=== PATIENT | female | born 1970 | race Caucasian/White ===

== ENCOUNTER 2022-11-09 14:34 | Outpatient (REF) | payer BC, SELFPAY ==
--- NOTE | ~2022-11-09 | US_ITS ---
EXAMINATION: US RETROPERITONEAL LIMITED (RENAL ONLY) CLINICAL INFORMATION: Chronic kidney disease, stage 3. COMPARISON: None available. TECHNIQUE: Real-time imaging of the kidneys. FINDINGS: RIGHT KIDNEY: 11.2 x 4.2 x 4.3 cm (SAG x AP x TRV). The kidney is normal in size, contour, and echogenicity. Renal cortical thickness is normal. No calculi or focal parenchymal lesions. No hydronephrosis. LEFT KIDNEY: 10.4 x 4.5 x 6.1 cm (SAG x AP x TRV). The kidney is normal in size, contour, and echogenicity. Renal cortical thickness is normal. No renal calculi or hydronephrosis. Small 7 x 5 x 4 mm cyst in the midpole. No imaging follow-up recommended. US/US renal BI IMPRESSION: Unremarkable exam.
== END 2022-11-09 14:35 | disposition home or self-care (01) ==
LOC: HO.US 14:34
PROVIDERS: PCP Internal Medicine; Visit Provider Internal Medicine Nephrology
DX: N18.31 Chronic kidney disease, stage 3a (principal)
CPT/HCPCS: 76775

== ENCOUNTER 2022-11-12 15:23 | Outpatient (REF) | payer BC, SELFPAY ==
[2022-11-12 15:38] LABS: Total Volume 24 Hour Urine 1400 mL
[2022-11-12 15:46] LABS: Appearance Urine Clear; Color Urine Yellow; Glucose Urine UA Negative (Negative); Leukocyte Esterase Urine Small (1+) (Negative); Nitrite Urine Negative (Negative); Specific Gravity - Urine <= 1.005 (1.005-1.025); UMIC TRIGGER UA YES; Urine Blood Small (1+) (Negative); Urine Ketones Negative (Negative); Urine Protein Negative (Neg-Trace)
[2022-11-12 16:21] LABS: Bacteria Urine None Seen (None Seen); Hyaline Casts Urine 0-2 /LPF (0-2); RBC Urine 0-2 /HPF (0-2)
[2022-11-12 18:32] LABS: Creatinine, 24Hr Urine 1.4 G/Day (1.0-2.0); Creatinine, mg/dL 96.92
[2022-11-12 18:42] LABS: Microalbumin Urine < 5.0 mg/L; Total Protein Urine Random < 7 mg/dL (<12)
== END 2022-11-12 15:24 | disposition home or self-care (01) ==
LOC: HO.LNP 15:23
PROVIDERS: Visit Provider Internal Medicine Nephrology
DX: N18.31 Chronic kidney disease, stage 3a (principal)
CPT/HCPCS: 81001; 82043; 82570; 84156

== ENCOUNTER 2022-12-25 15:10 | Outpatient (REF) | payer BC, SELFPAY ==
[2022-12-25 17:04] LABS: Anion Gap 15 (12-20); Blood Urea Nitrogen 15 mg/dL (9-16); Calcium 8.8 mg/dL (8.4-10.2); Carbon Dioxide 24 mmol/L (22-29); Chloride 108 mmol/L (96-108); Estimated Glomerular Filt Rate > 60; Sodium 143 mmol/L (135-145)
== END 2022-12-25 15:11 | disposition home or self-care (01) ==
LOC: HO.LAB 15:10
PROVIDERS: PCP Internal Medicine; Visit Provider Internal Medicine Nephrology
DX: N18.2 Chronic kidney disease, stage 2 (mild) (principal)
CPT/HCPCS: 36415; 80051; 82310; 82565; 84520

== ENCOUNTER 2023-07-24 18:38 | Emergency (ER) | payer BC, SELFPAY ==
[2023-07-24] VITALS (7 sets, daily range): BP systolic 145–178; BP diastolic 89–105; PULSE 82–107; RESP 14–23; TEMP 36.5–37; O2SAT 99–100; BMI 22.8
--- NOTE | ~2023-07-24 | CT_ITS ---
EXAMINATION: CT HEAD WITHOUT CONTRAST CLINICAL INFORMATION: Severe headache COMPARISON: None available. TECHNIQUE: Contiguous axial imaging was performed from the skull base to vertex without intravenous administration of contrast. This CT examination was performed using dose optimization techniques as appropriate, variously including the following: *Automated exposure control *Adjustment of mA and/or kV according to patient size (this includes techniques or standardized protocols for targeted exams where dose is matched to indication/reason for exam; i.e. extremities or head) *Use of iterative reconstruction technique DLP: 646 mGy-cm FINDINGS: There is no evidence of acute intracranial hemorrhage or territorial infarction. No abnormal mass effect or midline shift is seen. Mack to white matter differentiation is well preserved. No extra-axial fluid collections are identified. The ventricles are normal in size. There is no abnormal attenuation within the brain parenchyma. The osseous structures and soft tissues are normal. The mastoid air cells and visualized portions of the paranasal sinuses are well aerated. CT/CT head/brain wo IV con IMPRESSION: No acute intracranial pathology.
--- NOTE | 2023-07-24 18:42 | ED_ITS ---
HPI - General Adult General Chief complaint: Dizziness Stated complaint: sob lightheaded diarrhea ?medication reaction Time Seen by Provider: 07/24/23 19:30 Source: patient and family Mode of arrival: ambulatory Limitations: no limitations History of Present Illness ED Provider: Dr. Erica Anthony HPI narrative: Patient comes to the emergency room complaining of feeling lightheaded, nausea no vomiting. Patient denies headache. Patient states that over the last 3-1/2 weeks, she has been taking increased dose of topiramate to help control migraine headaches. Patient states that although she does not have headache at this time, patient has headaches are not decreasing in frequency or intensity. However, patient states that the topiramate is making her feel sick a wound like to discontinue it. Patient states that she does not want to be on any preventive medications at this time, as she is afraid of all the side effects. Patient denies near-syncope. Patient states that she feels occasionally short of breath, no palpitations, No syncopal episodes. Denies calf pain. Related Data Previous Rx's ?Medication ?Instructions ?Recorded norethindrone (contraceptive) 0.35 0.35 mg PO DAILY 28 days #28 tabs 09/26/20 mg tablet Allergies Allergy/AdvReac Type Severity Reaction Status Date / Time No Known Allergies Allergy Verified 07/24/23 18:44 Review of Systems 2 Review of Systems: Constitutional : No Weight loss, No Fever, No Chills, No Night Sweats, complaining of fatigue and generalized malaise ENT/Mouth : No Hearing loss, No Ear Pain, No Nasal Congestion, No Sinus Pain, No Hoarseness, No sore throat, No Rhinorrhea, No Swallowing Difficulty Eyes: No Eye Pain, No Swelling, No Redness, No Foreign Body, No Discharge, No Vision Changes Cardiovascular : No Chest Pain, No SOB, No Dyspnea on Exertion, No Orthopnea, No Edema, No Palpitations Respiratory : No Cough, No Sputum, No Wheezing, No Smoke Exposure, No Dyspnea Gastrointestinal : Complaining of Nausea, No Vomiting, No Diarrhea, No Constipation, No abdominal Pain, No Hematochezia, No Melena Genitourinary : no irregular bleeding, No Dysuria, No Urinary Frequency, No Hematuria, No Urinary Incontinence, No Urgency, No Flank Pain, No Urinary Flow Changes, No Hesitancy Musculoskeletal : No joint pain, No Myalgias, No Joint Swelling Skin : No Skin Lesions, No rash Neuro : No Weakness, No Numbness, No Paresthesias, No Loss of Consciousness, No Dizziness, No Headache Psych : No Anxiety/Panic, No Depression, No SI/HI/AH/VH, No Social Issues, Heme/Lymph: No Bruising, No Bleeding,No Lymphadenopathy Endocrine : No Polyuria, No Polydipsia, No Temperature Intolerance [facility] Social History Social History Smoked in Last 30 Days: No Use of substances other than those prescribed or required for medical reasons: No Advance Directives: No Advance Directives Information Provided: No Physical Exam ED Vital Signs: Vital Signs - 24 hr 07/24/23 18:42 07/24/23 19:17 07/24/23 19:49 Temperature 98.6 F 97.7 F Pulse Rate 107 H 95 Respiratory Rate 16 18 Blood Pressure 178/104 H 159/94 H Pulse Oximetry 100 100 99 Oxygen Delivery Method Room Air Room Air 07/24/23 20:50 07/24/23 20:51 07/24/23 20:52 Temperature Pulse Rate 91 97 104 H Respiratory Rate 23 H 20 14 Blood Pressure 145/89 H 154/97 H 156/105 H Pulse Oximetry 99 100 100 Oxygen Delivery Method Room Air Room Air Room Air BMI result Body Mass Index 22.8 Const Other: Appearance: Alert. Oriented X3. No acute distress. Eyes: Pupils equal, round and reactive to light. ENT: Pharynx normal. Neck: Normal inspection. Neck supple. No lymph nodes noted. No crepitus CVS: Normal heart rate and rhythm. Pulses normal. Normal S1 and S2 Respiratory: No respiratory distress. Breath sounds normal. No Wheezing. No rales Abdomen: Soft and nontender. No rigidity. No distention. Skin: Skin warm and dry. Normal skin color. Normal skin turgor. Extremities: No lower extremity edema. No Lacerations. No Rash Neuro: Oriented X 3. No motor deficit. No sensory deficit. Moving all extremities. No slurred speech. CN 2 through 12 grossly intact , normal strength bilaterally, ambulatory unassisted Psych: calm, cooperative, normal affect Course Course Course Narrative: This is an RME done by COLLEEN Gonzales: Additional HPI, ROS, PE not included below will be deferred to primary provider. 53 year old female with no known pmh presents with headache, nausea, SOB, lightheaded and feels like shes going to pass out for about 2 hours. Denies syncopal episodes. Pt thinks she may be having a reaction to topirimate she is taking for her migraines which she started 4 weeks ago. Denies vomiting, chest pain. Appearance: Alert.? Oriented X3.? No acute cardiopulmonary distress distress.? Head: Normocephalic, atraumatic, no step-offs or deformities ENT: Pharynx normal.??External ears normal, TMs normal bilaterally and EAC's normal. No pain with manipulation of external ears bilaterally. No mastoid tenderness. Neck: Normal inspection.? Neck supple.? CVS: Pulses normal.? Respiratory: No respiratory distress.? Abdomen: Soft and nontender.? Skin: ? Normal skin color. Extremities: 5/5 strength to bilateral upper and lower extremities Back: No midline tenderness, no C-spine tenderness, full range of motion, No CVA tenderness bilaterally Neuro: Oriented X 3.? No motor deficit.? No sensory deficit. Medications Administered Discontinued Medications Generic Name Dose Route Start Last Admin Trade Name Freq PRN Reason Stop Dose Admin Sodium Chloride 1,000 mls @ 999 mls/hr 07/24/23 19:43 07/24/23 21:02 Ns IVCONT 07/24/23 20:43 Infused .Q1H1M ONE Infusion Ondansetron HCl 4 mg 07/24/23 19:44 07/24/23 19:53 Ondansetron Hcl 4 Mg/2 Ml Vial IVPUSH 07/24/23 19:45 4 mg ONCE ONE Administration Medical Decision Making Medical Decision Making MDM Narrative: - my interpretation of labs, no obvious abnormality in hematology chemistry, normal troponin, negative for UTI. However, there is blood in the urine which was discussed with the patient. PCP /urology follow-up recommended. Serology test negative for COVID. - My interpretation of head CT, no acute abnormality. - EKG: Normal sinus rhythm, heart rate 97, no ST segment depression or elevation, nonspecific T-wave inversion in lead 3, QTC 447 - Orthostatic vitals negative - patient was able to ambulate to the bathroom and back. Patient states that she has generalized fatigue. No motor weakness. - Patient states that approximately 2 weeks ago, she noticed that there were several ticks on her but none of them were attached. I discussed with the patient that we will send a tick born panel to the lab, results take a few days to return. If positive, patient will be called with the results. - Urinalysis from today shows a small amount of blood, +1. However, the actual red blood cell count is negative. Patient asymptomatic, no signs of UTI. Discussed with the patient to follow-up with her primary care physician. - Patient likely having a viral syndrome - patient states that she has been feeling weak and having similar symptoms since she started taking topiramate. Patient was hoping that once she got to the maximum dose as prescribed, 100 mg daily, she was going to start feeling better but states she is feeling worse each week that she increases her dose. I discussed the taper with pharmacy, we will start with a 25 mg decreased. I discussed with the patient to call her primary care physician and neurologist tomorrow and follow-up. Differential Diagnosis Differential Diagnoses: The differential diagnosis associated with the presentation includes ( Viral syndrome, medication side effect) Admission/Observation Consideration of admission/observation: Escalation of care including admission/observation considered ( given patient's symptoms, admission/ observation considered.) Lab Data MDM Lab Attestation statement: I reviewed the patient's lab results. 07/24/23 18:57 07/24/23 18:57 Labs: Lab Results 07/24/23 07/24/23 07/24/23 Range/Units 18:57 19:19 19:55 WBC 7.6 (4.8-10.8) X10*3/uL RBC 4.60 (4.20-5.50) X10*6/uL Hgb 13.8 (12.0-16.0) g/dl Hct 39.9 (37.0-47.0) % MCV 86.7 (80.0-98.0) fL MCH 30.0 (27.0-33.0) pg MCHC 34.6 (31.0-35.0) g/dl RDW 13.0 (11.0-16.0) % Plt Count 235 (160-400) X10*3/uL MPV 10.9 (9.4-12.3) fL Immature Gran % (Auto) 0.3 (0.0-0.4) % Neut % (Auto) 56.2 (45-73) % Lymph % (Auto) 30.9 (20-40) % [place] % (Auto) 10.6 (2-11) % Eos % (Auto) 1.6 (0-4) % Baso % (Auto) 0.4 (0-2) % Lymph # (Auto) 2.4 (1.2-4.9) X10*3/uL [place] # (Auto) 0.8 (0.1-1.2) X10*3/uL Eos # (Auto) 0.1 (0.0-0.4) X10*3/uL Baso # (Auto) 0.0 (0.0-0.2) X10*3/uL Abs Immat Gran (auto) 0.02 (0.00-0.03) X10*3/uL Absolute Neuts (auto) 4.3 (2.0-8.3) x10*3/uL Absolute Nucleated RBC 0.000 (0.0-0.012) X10*3/uL Nucleated RBC % (auto) 0.0 (0.0-0.2) /100WBC ESR 6 (0-20) MM/HR PT 11.6 (11.1-13.3) SEC INR 1.0 (0.9-1.1) Sodium 143 (135-145) mmol/L Potassium 3.5 (3.3-5.1) mmol/L Chloride 116 H (96-108) mmol/L Carbon Dioxide 16 L (22-29) mmol/L Anion Gap 15 (12-20) BUN 13 (9-16) mg/dL Creatinine 1.00 (0.5-1.4) mg/dL Estim Creat Clear Calc 56.1 Estimated GFR 58 Random Glucose 119 H (60-115) mg/dL Calcium 8.4 (8.4-10.2) mg/dL Magnesium 2.2 (1.6-2.6) mg/dL Total Bilirubin 0.1 (0.0-1.0) mg/dL AST 18 (5-31) U/L ALT 28 (0-31) U/L Alkaline Phosphatase 45 (39-117) U/L Troponin I High Sens < 2.7 (<3.5-17.0) ng/L C-Reactive Protein 0.28 (< or = 0.50) mg/dL Total Protein 6.9 (6.5-8.0) g/dL Albumin 4.0 (3.5-5.0) g/dL Beta HCG, Quant < 2 mIU/mL Urine Color Yellow Urine Appearance Clear Urine pH 5.5 (5.0-9.0) Ur Specific [place] 1.010 (1.005-1.025) Urine Protein Negative (Neg-Trace) mg/dL Urine Glucose (UA) Negative (Negative) mg/dL Urine Ketones Negative (Negative) mg/dL Urine Blood Small (1+) H (Negative) Urine Nitrite Negative (Negative) Ur Leukocyte Esterase Trace H (Negative) Urine RBC 0-2 (0-2) /HPF Urine WBC 0-5 (0-5) /HPF Ur Squamous Epith Cells 0-2 (0-2) /HPF Urine Bacteria None Seen (None Seen) Hyaline Casts 0-2 (0-2) /LPF COVID-19 (KE) Cancelled COVID-19 Clin Com Cancelled Influenza Type A ([facility]) Cancelled Influenza Type B ([facility]) Cancelled Influenza A & B Note Cancelled 07/24/23 Range/Units 20:18 WBC (4.8-10.8) X10*3/uL RBC (4.20-5.50) X10*6/uL Hgb (12.0-16.0) g/dl Hct (37.0-47.0) % MCV (80.0-98.0) fL MCH (27.0-33.0) pg MCHC (31.0-35.0) g/dl RDW (11.0-16.0) % Plt Count (160-400) X10*3/uL MPV (9.4-12.3) fL Immature Gran % (Auto) (0.0-0.4) % Neut % (Auto) (45-73) % Lymph % (Auto) (20-40) % [place] % (Auto) (2-11) % Eos % (Auto) (0-4) % Baso % (Auto) (0-2) % Lymph # (Auto) (1.2-4.9) X10*3/uL [place] # (Auto) (0.1-1.2) X10*3/uL Eos # (Auto) (0.0-0.4) X10*3/uL Baso # (Auto) (0.0-0.2) X10*3/uL Abs Immat Gran (auto) (0.00-0.03) X10*3/uL Absolute Neuts (auto) (2.0-8.3) x10*3/uL Absolute Nucleated RBC (0.0-0.012) X10*3/uL Nucleated RBC % (auto) (0.0-0.2) /100WBC ESR (0-20) MM/HR PT (11.1-13.3) SEC INR (0.9-1.1) Sodium (135-145) mmol/L Potassium (3.3-5.1) mmol/L Chloride (96-108) mmol/L Carbon Dioxide (22-29) mmol/L Anion Gap (12-20) BUN (9-16) mg/dL Creatinine (0.5-1.4) mg/dL Estim Creat Clear Calc Estimated GFR Random Glucose (60-115) mg/dL Calcium (8.4-10.2) mg/dL Magnesium (1.6-2.6) mg/dL Total Bilirubin (0.0-1.0) mg/dL AST (5-31) U/L ALT (0-31) U/L Alkaline Phosphatase (39-117) U/L Troponin I High Sens (<3.5-17.0) ng/L C-Reactive Protein (< or = 0.50) mg/dL Total Protein (6.5-8.0) g/dL Albumin (3.5-5.0) g/dL Beta HCG, Quant mIU/mL Urine Color Urine Appearance Urine pH (5.0-9.0) Ur Specific [place] (1.005-1.025) Urine Protein (Neg-Trace) mg/dL Urine Glucose (UA) (Negative) mg/dL Urine Ketones (Negative) mg/dL Urine Blood (Negative) Urine Nitrite (Negative) Ur Leukocyte Esterase (Negative) Urine RBC (0-2) /HPF Urine WBC (0-5) /HPF Ur Squamous Epith Cells (0-2) /HPF Urine Bacteria (None Seen) Hyaline Casts (0-2) /LPF COVID-19 (KE) Negative COVID-19 Clin Com See Note Influenza Type A ([facility]) Negative Influenza Type B ([facility]) Negative Influenza A & B Note See Note Independent Interpretation I performed an independent interpretation of an: EKG and CT Scan Radiology Impression Discussion of test interpretation with radiology: I have reviewed the radiologist's reading. Radiologist Impression: FINDINGS: There is no evidence of acute intracranial hemorrhage or territorial infarction. No abnormal mass effect or midline shift is seen. Mack to white matter differentiation is well preserved. No extra-axial fluid collections are identified. The ventricles are normal in size. There is no abnormal attenuation within the brain parenchyma. The osseous structures and soft tissues are normal. The mastoid air cells and visualized portions of the paranasal sinuses are well aerated. CT/CT head/brain wo IV con IMPRESSION: No acute intracranial pathology. Independent Historian Clinical information obtained from an independent historian. History obtained from or confirmed by: Spouse Tests considered The following testing was considered but not selected: I considered doing a lumbar puncture. However, patient has no numbness tingling in hands or feet. Patient has good motor strength despite feeling weak. Critical Care Time Critical Care Time Critical Care Time: Yes Total Critical Care Time: 60 Attestation: I have personally provided critical care time. Time includes review of lab data, radiology results, discussion with consultants, and monitoring for potential decompensation. Intervention performed as documented. Discharge Plan Discharge Clinical Impression: Medication side effects, Light-headed Patient Disposition: Home, Self-Care Instructions: Lightheadedness (ED), Adverse Drug Reaction (ED) Additional Instructions: Please taper down your topiramate, 25 mg lower each week. Tomorrow, please take 50 mg in the morning, 25 mg at night. Keep that dose for a week. Tomorrow, please call your primary care physician and your neurologist to inform them that you have significant side effects from the topiramate and your starting a taper. Also, please follow-up with your primary care physician, your urinalysis indicated that there is microscopic amount of blood in the urine. However, this may not necessarily be blood, This may be pigment in the urine. Please follow-up with your primary care physician tomorrow. If you have any worsening or new symptoms, please return to the emergency room or call 911 Prescriptions: No Action norethindrone (contraceptive) 0.35 mg tablet 0.35 mg PO DAILY 28 Days Qty: 28 0RF Print Language: [place] Citizen
--- NOTE | 2023-07-24 18:46 | ECG_ITS ---
Test Reason : LIGHTHEADED Blood Pressure : / mmHG Vent. Rate : 097 BPM Atrial Rate : 097 BPM P-R Int : 140 ms QRS Dur : 070 ms QT Int : 352 ms P-R-T Axes : 066 034 001 degrees QTc Int : 447 ms Normal sinus rhythm Possible Left atrial enlargement Nonspecific ST and T wave abnormality Abnormal ECG No previous ECGs available Referred By: Kimberli Gonzales Electronically Signed By:KAILYN GERARDO
[2023-07-24 19:02] LABS: MANUAL DIFF FLAG NO
[2023-07-24 19:10] LABS: Basophils Percent Auto 0.4 % (0-2); Eosinophils Absolute Auto 0.1 X10*3/uL (0.0-0.4); Eosinophils Percent Auto 1.6 % (0-4); Hematocrit 39.9 % (37.0-47.0); Hemoglobin 13.8 g/dl (12.0-16.0); Imm Gran Abs Auto 0.02 X10*3/uL (0.00-0.03); Imm Gran Pct Auto 0.3 % (0.0-0.4); Lymphocytes Absolute Auto 2.4 X10*3/uL (1.2-4.9); Lymphocytes Percent Auto 30.9 % (20-40); Mean Corpuscular HGB Conc 34.6 g/dl (31.0-35.0); Mean Corpuscular Volume 86.7 fL (80.0-98.0); Mean Platelet Volume 10.9 fL (9.4-12.3); Monocytes Absolute Auto 0.8 X10*3/uL (0.1-1.2); Monocytes Percent Auto 10.6 % (2-11); Neutrophils Absolute Auto 4.3 x10*3/uL (2.0-8.3); Neutrophils Percent Auto 56.2 % (45-73); Platelet Count 235 X10*3/uL (160-400); White Blood Count 7.6 X10*3/uL (4.8-10.8)
[2023-07-24 19:17] LABS: Alanine Aminotransferase 28 U/L (0-31); Alkaline Phosphatase 45 U/L (39-117); Anion Gap 15 (12-20); Aspartate Amino Transferase 18 U/L (5-31); Bilirubin Total 0.1 mg/dL (0.0-1.0); Blood Urea Nitrogen 13 mg/dL (9-16); C Reactive Protein 0.28 mg/dL (< or = 0.50); Calcium 8.4 mg/dL (8.4-10.2); Carbon Dioxide 16 mmol/L (22-29); Chloride 116 mmol/L (96-108); Creatinine Clr Calc Pharmacy 56.1; Estimated Glomerular Filt Rate 58; Glucose Random 119 mg/dL (60-115); Magnesium 2.2 mg/dL (1.6-2.6); Potassium 3.5 mmol/L (3.3-5.1); Sodium 143 mmol/L (135-145); Total Protein 6.9 g/dL (6.5-8.0)
[2023-07-24 19:20] LABS: Prothrombin Time 11.6 SEC (11.1-13.3)
[2023-07-24 19:24] LABS: HCG Quantitative < 2 mIU/mL
[2023-07-24 19:25] LABS: Troponin-I High Sensitivity < 2.7 ng/L (<3.5-17.0)
[2023-07-24 19:26] LABS: Appearance Urine Clear; Color Urine Yellow; Glucose Urine UA Negative (Negative); Leukocyte Esterase Urine Trace (Negative); Nitrite Urine Negative (Negative); PH 5.5 (5.0-9.0); UMIC TRIGGER UACC YES; Urine Blood Small (1+) (Negative); Urine Ketones Negative (Negative); Urine Protein Negative (Neg-Trace)
[2023-07-24 19:34] LABS: Bacteria Urine None Seen (None Seen); Hyaline Casts Urine 0-2 /LPF (0-2); RBC Urine 0-2 /HPF (0-2); Squamous Epithelial Cell Urine 0-2 /HPF (0-2); WBC Urine 0-5 /HPF (0-5)
[2023-07-24] MEDS: 0.9 % Sodium Chloride 1,000 ML 999 ML IVCONT (19:53)
[2023-07-24] MEDS: ondansetron HCL 4 MG/2 ML VIAL IVPUSH (19:53)
[2023-07-24 19:56] LABS: Erythrocyte Sedimentation Rate 6 MM/HR (0-20)
--- NOTE | 2023-07-24 20:30 | MHC.EDTECH ---
Patient used the commode
[2023-07-24 20:41] LABS: COVID-19 Test Negative (Negative); IDNOW Serial# 08D9AD1C
[2023-07-24 20:44] LABS: IDNOW Serial# 152EDE1D; Influenza A Negative (Negative); Influenza B2 Negative (Negative)
[2023-07-27 11:13] LABS: A. Phagocytphilium DNA,RT-PCR NOT DETECTED (NOT DETECTED); Babesia Microti DNA, RT-PCR NOT DETECTED (NOT DETECTED); Borrelia Miyamotoi,DNA RT-PCR NOT DETECTED (NOT DETECTED); E.Chaffeensis DNA RT-PCR NOT DETECTED (NOT DETECTED); Lyme(Borrelia ssp)DNA RT-PCR NOT DETECTED (NOT DETECTED)
== END 2023-07-24 22:36 | disposition home or self-care (01) ==
PROVIDERS: Physician Assistant; Emergency Provider Emergency Medicine
DX: R42 Dizziness and giddiness (principal); R06.02 Shortness of breath; T42.6X5A Adverse effect of other antiepileptic and sedative-hypnotic drugs, initial encounter; Y92.9 Unspecified place or not applicable; R51.9 Headache, unspecified; Z79.899 Other long term (current) drug therapy; Z11.52 Encounter for screening for COVID-19
CPT/HCPCS: 36415; 70450; 80053; 81001; 83735; 84484; 84702; 85025; 85610; 85652; 86140; 87468; 87469; 87478; 87484; 87502; 87635; 87798; 93005; 96361; 96374; 99284; 99285; J2405

== ENCOUNTER → 2023-07-24 18:46 | Outpatient (BNV) | payer BC, SELFPAY | PROVIDERS: Emergency Provider Emergency Medicine; Visit Provider Internal Medicine | DX: R94.31 Abnormal electrocardiogram [ECG] [EKG] (principal) | CPT/HCPCS: 93010 ==

== ENCOUNTER 2023-07-30 12:46 | Emergency (ER) | payer BC, SELFPAY ==
--- NOTE | ~2023-07-30 | XR_ITS ---
EXAMINATION: XR CHEST CLINICAL INFORMATION: Palpitations. COMPARISON: None available. TECHNIQUE: 2 views of the chest were obtained. FINDINGS: No significant abnormality is noted involving the heart, lungs, mediastinum, bony thorax or soft tissues. XR/XR chest 2V IMPRESSION: Unremarkable examination.
[2023-07-30 13:10] VITALS: BP 167/108; PULSE 114; RESP 18; TEMP 36.9; O2SAT 99; BMI 22.5
--- NOTE | 2023-07-30 13:11 | ED.GENADULT ---
HPI - General Adult General Chief complaint: Arrhythmia/Palpitations Stated complaint: HR 114 Time Seen by Provider: 07/30/23 21:08 Source: patient Mode of arrival: ambulatory Limitations: no limitations History of Present Illness ED Provider: mirna MURRY narrative: Patient has been having palpitation with heart rate reaching to 120 for last 2- 3 days. Patient is started on Topamax and feels that has the reason for having this episode patient with slight dizzy no chest pain no shortness a breath no history of thyroid problems Related Data Previous Rx's ?Medication ?Instructions ?Recorded norethindrone (contraceptive) 0.35 0.35 mg PO DAILY 28 days #28 tabs 09/26/ mg tablet Allergies Allergy/AdvReac Type Severity Reaction Status Date / Time No Known Allergies Allergy Verified 07/30/23 13:12 Review of Systems Review of Systems: Yes all other systems are reviewed and are negative [facility] Social History Social History Alcohol intake: current Physical Exam ED Vital Signs: Vital Signs - 24 hr 07/30/23 13:10 07/30/23 20:25 Temperature 98.4 F 97.9 F Pulse Rate 114 H 102 H Respiratory Rate 18 20 Blood Pressure 167/108 H 150/97 H Pulse Oximetry 99 100 Oxygen Delivery Method Room Air Room Air BMI result Body Mass Index 22.5 Appearance: Alert. Oriented X3. No acute distress. Anxious Eyes: PERRLA, No Nystagmus ENT: Pharynx normal. Oral Mucosa moist Neck: Normal inspection. Neck supple. CVS: Tachycardic with heart rate fluctuating between 110 and 115 increases on standing Pulses normal. Respiratory: No respiratory distress. Equal air entry bilateral, no wheezing/rales/rhonchi Abdomen: Soft and nontender. Bowel sounds are present, no mass palpable, no CVA tenderness Skin: Skin warm and dry. Normal skin color. Normal skin turgor. Extremities: No lower extremity edema. No calf tenderness Neuro: Oriented X 3. No motor deficit. Course Course Course Narrative: This is a Rapid Medical Examination (RME) performed by Mónica Barkley PA-C in triage. Full HPI, ROS, assessment and treatment plan per primary provider in the Main ED. 53 yo female with pmhx of migraines on Topiramate x4 wks, here for eval of heart palpitations x2 hours. Admits to constantly watching her pulse on her fitbit. States she was unable to get her pulse under 95 while sitting at work. Then it went up to 114. Feels SOB. Feels like she's having an anxiety attack. Took zomeg 30 minutes ago. Denies chest pain. seen at [facility] for same on 07/24/23 and discharge home with taper off topiramate for suspected AE. began 25mg qd taper yesterday. HR 109 in triage. very anxious. no respiratory distress. no peripheral edema. Plan: labs, ekg, cxr Medications Administered Discontinued Medications Generic Name Dose Route Start Last Admin Trade Name Freq PRN Reason Stop Dose Admin Sodium Chloride 1,000 mls @ 999 mls/hr 07/30/23 21:50 07/30/23 22:50 Ns IV 07/30/23 22:50 999 mls/hr .Q1H1M ONE Administration Medical Decision Making Medical Decision Making [facility] Narrative: Patient with tachycardia monitor showed sinus tachycardia increases on standing possible POTS/anxiety Patient's heart rate improved after IV hydration TSH was normal Differential Diagnosis Differential Diagnoses: The differential diagnosis associated with the presentation includes Sinus tachycardia/SVT/atrial fibrillation /POTS/hyperthyroidism Admission/Observation Consideration of admission/observation: Escalation of care including admission/observation considered Lab Data [facility] Lab Attestation statement: I reviewed the patient's lab results. 07/30/23 13:28 07/30/23 13:28 Labs: Lab Results 07/30/23 Range/Units 13:28 WBC 5.9 (4.8-10.8) X10*3/uL RBC 4.80 (4.20-5.50) X10*6/uL Hgb 14.3 (12.0-16.0) g/dl Hct 42.0 (37.0-47.0) % MCV 87.5 (80.0-98.0) fL MCH 29.8 (27.0-33.0) pg MCHC 34.0 (31.0-35.0) g/dl RDW 13.0 (11.0-16.0) % Plt Count 239 (160-400) X10*3/uL MPV 10.7 (9.4-12.3) fL Immature Gran % (Auto) 0.2 (0.0-0.4) % Neut % (Auto) 64.4 (45-73) % Lymph % (Auto) 26.9 (20-40) % [place] % (Auto) 7.3 (2-11) % Eos % (Auto) 0.7 (0-4) % Baso % (Auto) 0.5 (0-2) % Lymph # (Auto) 1.6 (1.2-4.9) X10*3/uL [place] # (Auto) 0.4 (0.1-1.2) X10*3/uL Eos # (Auto) 0.0 (0.0-0.4) X10*3/uL Baso # (Auto) 0.0 (0.0-0.2) X10*3/uL Abs Immat Gran (auto) 0.01 (0.00-0.03) X10*3/uL Absolute Neuts (auto) 3.8 (2.0-8.3) x10*3/uL Absolute Nucleated RBC 0.000 (0.0-0.012) X10*3/uL Nucleated RBC % (auto) 0.0 (0.0-0.2) /100WBC PT 11.7 (11.1-13.3) SEC INR 1.0 (0.9-1.1) Sodium 142 (135-145) mmol/L Potassium 3.5 (3.3-5.1) mmol/L Chloride 114 H (96-108) mmol/L Carbon Dioxide 19 L (22-29) mmol/L Anion Gap 13 (12-20) BUN 17 H (9-16) mg/dL Creatinine 1.05 (0.5-1.4) mg/dL Estim Creat Clear Calc 53.5 Estimated GFR 55 Random Glucose 99 (60-115) mg/dL Calcium 9.2 D (8.4-10.2) mg/dL Magnesium 2.3 (1.6-2.6) mg/dL Total Bilirubin 0.3 (0.0-1.0) mg/dL AST 25 (5-31) U/L ALT 35 H (0-31) U/L Alkaline Phosphatase 45 (39-117) U/L Troponin I High Sens < 2.7 (<3.5-17.0) ng/L Total Protein 7.3 (6.5-8.0) g/dL Albumin 4.3 (3.5-5.0) g/dL Lipase 62 (8-78) U/L TSH 1.62 (0.32-4.0) uIU/mL Independent Interpretation I performed an independent interpretation of an: EKG Interpretation: Normal sinus rhythm heart rate 91 beats per minute normal interval non specific ST T wave changes no acute ischemia Discharge Plan Discharge Clinical Impression: Sinus tachycardia Patient Disposition: Home, Self-Care Instructions: Tachycardia (ED) Additional Instructions: Drink plenty of fluids he should drink at least 3 L of water a day Follow with your PCP if palpitation continue Prescriptions: No Action norethindrone (contraceptive) 0.35 mg tablet 0.35 mg PO DAILY 28 Days Qty: 28 0RF Print Language: [place]
--- NOTE | 2023-07-30 13:16 | ECG_ITS ---
Test Reason : paplpitations Blood Pressure : / mmHG Vent. Rate : 091 BPM Atrial Rate : 091 BPM P-R Int : 140 ms QRS Dur : 068 ms QT Int : 364 ms P-R-T Axes : 071 031 018 degrees QTc Int : 447 ms Normal sinus rhythm Possible Left atrial enlargement Nonspecific ST abnormality Abnormal ECG When compared with ECG of 24-JUL-2023 18:47, No significant change was found Referred By: Rosy Barkley Electronically Signed By:MONET GILBERT MD
[2023-07-30 13:55] LABS: MANUAL DIFF FLAG NO
[2023-07-30 14:02] LABS: Basophils Percent Auto 0.5 % (0-2); Eosinophils Percent Auto 0.7 % (0-4); Hemoglobin 14.3 g/dl (12.0-16.0); Imm Gran Abs Auto 0.01 X10*3/uL (0.00-0.03); Imm Gran Pct Auto 0.2 % (0.0-0.4); Lymphocytes Absolute Auto 1.6 X10*3/uL (1.2-4.9); Lymphocytes Percent Auto 26.9 % (20-40); Mean Corpuscular Hemoglobin 29.8 pg (27.0-33.0); Mean Corpuscular Volume 87.5 fL (80.0-98.0); Mean Platelet Volume 10.7 fL (9.4-12.3); Monocytes Absolute Auto 0.4 X10*3/uL (0.1-1.2); Monocytes Percent Auto 7.3 % (2-11); Neutrophils Absolute Auto 3.8 x10*3/uL (2.0-8.3); Neutrophils Percent Auto 64.4 % (45-73); Platelet Count 239 X10*3/uL (160-400); White Blood Count 5.9 X10*3/uL (4.8-10.8)
[2023-07-30 14:03] LABS: Prothrombin Time 11.7 SEC (11.1-13.3)
[2023-07-30 14:14] LABS: Alanine Aminotransferase 35 U/L (0-31); Albumin Level 4.3 g/dL (3.5-5.0); Alkaline Phosphatase 45 U/L (39-117); Anion Gap 13 (12-20); Aspartate Amino Transferase 25 U/L (5-31); Bilirubin Total 0.3 mg/dL (0.0-1.0); Blood Urea Nitrogen 17 mg/dL (9-16); Calcium 9.2 mg/dL (8.4-10.2); Carbon Dioxide 19 mmol/L (22-29); Chloride 114 mmol/L (96-108); Creatinine Clr Calc Pharmacy 53.5; Estimated Glomerular Filt Rate 55; Glucose Random 99 mg/dL (60-115); Lipase 62 U/L (8-78); Magnesium 2.3 mg/dL (1.6-2.6); Potassium 3.5 mmol/L (3.3-5.1); Sodium 142 mmol/L (135-145); Total Protein 7.3 g/dL (6.5-8.0)
[2023-07-30 14:29] LABS: Troponin-I High Sensitivity < 2.7 ng/L (<3.5-17.0)
[2023-07-30 20:25] VITALS: BP 150/97; PULSE 102; RESP 20; TEMP 36.6; O2SAT 100
[2023-07-30 22:32] LABS: Thyroid Stimulating Hormone 1.62 uIU/mL (0.32-4.0)
[2023-07-30] MEDS: 0.9 % Sodium Chloride 1,000 ML 999 ML IV (22:50)
[2023-07-31 00:06] VITALS: BP 130/80; PULSE 88; RESP 18; TEMP 36.6; O2SAT 98
== END 2023-07-31 00:25 | disposition home or self-care (01) ==
PROVIDERS: Physician Assistant Medical; Emergency Provider Internal Medicine; PCP Internal Medicine
DX: R00.0 Tachycardia, unspecified (principal)
CPT/HCPCS: 36415; 71046; 80053; 83690; 83735; 84443; 84484; 85025; 85610; 93005; 96360; 96361; 99284; 99285

== ENCOUNTER → 2023-07-30 13:16 | Outpatient (BNV) | payer BC, SELFPAY | PROVIDERS: PCP Internal Medicine; Visit Provider Internal Medicine Cardiovascular Disease | DX: E66.9 Obesity, unspecified (principal); Z01.810 Encounter for preprocedural cardiovascular examination | CPT/HCPCS: 93010 ==

== ENCOUNTER 2023-08-05 15:41 | Outpatient (AMB) | payer BC, SELFPAY ==
--- NOTE | 2023-08-05 15:47 | MHC.PC.OV ---
Vital Signs 08/05/23 15:57 Height 5 ft 2.99 in Weight 132 lb 6 oz BMI 23.5 BP 138/86 Blood Pressure Location Rt brachial Position Sitting Respiration 16 Pulse 110 H Pulse Source Pulse Oximeter Temp 97.4 F Temp Source Oral Pulse Oximetry (%) 98 Oxygen Delivery Method Room Air Intake Visit Reasons: Er-Follow up Intake Note: New patient visit. ER follow up Allergies No Known Allergies Allergy (Verified 08/05/23 15:53) Tobacco use date assessed: 08/05/23 Dental Screening Dental Screen Date: 08/05/23 Did you have a dental visit in the last 12 months?: No Did you have a dental problem in the last 6 months where you did not have access to dental care?: No Was dental information given to patient?: Patient has dentist HPI HPI Comments History of Present Illness Details 53 yo female with pmhx of migraines, low vitamin D presenting for ER follow up She was seen recently 2x in ER for palpitations, here for eval of heart palpitations x2 hours. Admits to constantly watching her pulse on her fitbit. States she was unable to get her pulse under 95 while sitting at work. Then it went up to 114. Feels SOB. Feels like she's having an anxiety attack. Took zomeg 30 minutes ago. Denies chest pain. seen at [facility] for same on 07/24/23 and discharge home with taper off topiramate for suspected AE. began 25mg qd taper yesterday. HR 109 in triage. very anxious. no respiratory distress. no peripheral edema. Patient notes that she continues to taper down on topamax now doing 1 every other day. Says she feels awful. Episodes of elevated heart rate continue. Denies chest pain, cough, fevers, dysuria. ROS CONSTITUTIONAL: Denies weight loss, fever and chills. HEENT: Denies changes in vision and hearing. RESPIRATORY: Denies SOB and cough. CV: see HPI GI: Denies abdominal pain, nausea, vomiting and diarrhea. : Denies dysuria and urinary frequency. MSK: Denies new myalgia and joint pain. SKIN: Denies rash and pruritus. NEUROLOGICAL: Denies headache PSYCHIATRIC: Increased anxiety PHYSICAL EXAM: GENERAL: Alert and oriented x 3. NAD EYES: EOMI. Anicteric. HENT: Moist mucous membranes. No scleral icterus. No cervical lymphadenopathy. LUNGS: Clear to auscultation bilaterally. CARDIOVASCULAR: Regular rate and rhythm. ABDOMEN: Soft, non-tender +bs EXTREMITIES: No edema. Non-tender. SKIN: No rashes or lesions. Warm. NEUROLOGIC: No focal neurological deficits. CN II-XII grossly intact PSYCHIATRIC: Cooperative. 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 1. Little interest or pleasure in doing things: more than half the days 2. Feeling down, depressed, or hopeless: more than half the days 3. Trouble falling or staying asleep, or sleeping too much: not at all 4. Feeling tired or having little energy: nearly every day 5. Poor appetite or overeating: nearly every day 6. Feeling bad about yourself - or that you are a failure or have let yourself or your family down: not at all 7. Trouble concentrating on things, such as reading the newspaper or watching television: more than half the days 8. Moving or speaking so slowly that other people could have noticed. Or the opposite - being so fidgety or restless that you have been moving around a lot more than usual: more than half the days 9. Thoughts that you would be better off or of hurting yourself in some way: not at all Total score: 14 Depression Screening Interpretation: Positive Depression Screening Follow-up: Follow-up Visit Requested Depression Screening Done: Yes [id number] - PHQ-9 Billing: Yes Source: Developed by Drs. Paul Webb, Marycarmen New, Klever Riley and colleagues, with an educational som from [employer]. Thrive Questionnaire Date Thrive assessed: 08/05/23 I am a: Patient What is your living situation today?: I have a steady place to live Within the past 12 months, did the food you bought not last and you didn't have the money to get more?: Never true Within the past 12 months, did you worry whether your food would run out before you got money to buy more?: Never true Do you have trouble paying for medicines?: No Do you have trouble getting transportation to medical appointments?: No Do you have trouble paying your heating and electricity bill?: No Do you have trouble taking care of your child, family member or friend?: No Do you have trouble with day-to-day activities such as bathing, preparing meals, shopping, managing finances, etc.?: No Are you currently unemployed and looking for a job?: No Are you interested in more education?: No Please select the resources that you would like help with: None Currently or been in a relationship where the following occur: no concerns reported THRIVE Score: 0 AUDIT C Alcohol Use Questionnaire (AUDIT-C) 1. How often do you have a drink containing alcohol?: Never 3. How often do you have six or more drinks on one occasion?: Never Total Score: 0 ANA-7 AMB Questionnaire ANA-7 Date ANA - 7 assessed: 08/05/23 Feeling nervous, anxious, or on edge: 0 = Not at all Not being able to stop or control worryin = Not at all Worrying too much about different things: 0 = Not at all Trouble relaxin = Not at all Being so restless that it is hard to sit still: 0 = Not at all Becoming easily annoyed or irritable: 0 = Not at all Feeling afraid as if something awful might happen: 0 = Not at all Total ANA-7 score (0-4 normal; 5-9 mild; 10-14 moderate; 15-21 severe): 0 Source: Developed by Drs. Paul Webb, Marycarmen New, Klever Riley and colleagues, with an educational som from [employer]. ANA-7 Assessment Billing ANA-7 Assessment Tool: ANA-7 Assessment [id number] Physical exam (Primary Care) Vital Signs: Last Vital Signs Temp 97.4 F 08/05/23 15:57 Pulse 110 H 08/05/23 15:57 Resp 16 08/05/23 15:57 BP 138/86 08/05/23 15:57 Pulse Ox 98 08/05/23 15:57 Oxygen Delivery Method Room Air 08/05/23 15:57 BMI result Body Mass Index 23.5 Tobacco/Smoking Status: Tobacco use Status Tobacco use date assessed 08/05/23 08/05/23 15:58 Patient Tobacco Use Status Never used Tobacco 08/05/23 15:58 e-Cigarette/Vaping Use Never Used 08/05/23 15:58 PHQ-9: PHQ-9 Score PHQ-9: Total score 14 08/05/23 17:53 Depression Screening Interpretation: Positive Depression Screening Follow-up: Follow-up Visit Requested Thrive Assessment: Date of Thrive Assessment Date Thrive assessed 08/05/23 08/05/23 17:53 Currently or been in a relationship where the following occur: no concerns reported Assessment and Plan Assessment & Plan (1) Medication side effects: Comment: She will continue to taper off topamax per neurology. She can take metoprolol as needed for symptomatic tachycardia. She has an upcoming appt. She will follow up sooner as needed for persistent or worsening symptoms Code(s): T88.7XXA - Unspecified adverse effect of drug or medicament, initial encounter (2) Migraine: Code(s): G43.909 - Migraine, unspecified, not intractable, without status migrainosus Qualifiers: Migraine type: unspecified Status migrainosus presence: without status migrainosus Intractability: not intractable Qualified Code(s): G43.909 - Migraine, unspecified, not intractable, without status migrainosus (3) Tachycardia: Code(s): R00.0 - Tachycardia, unspecified Orders: Orders Urine Culture 08/06/23 R30.0 - Dysuria Medications: New metoprolol tartrate 12.5 mg (1/2 x 25 mg) PO BID PRN 60 tabs 0RF elevated heart rate 30 days Coding Level of Care Code Est Pt Level 5 (45062) Diagnoses Medication side effects T88.7XXA Migraine without status migrainosus, not intractable, unspecified migraine type G43.909 Migraine type: unspecified Status migrainosus presence: without status migrainosus Intractability: not intractable Tachycardia R00.0 Additional Codes ANA-7 Assessment Billing - ANA-7 Assessment Tool: ANA-7 Assessment [id number] ([id number]) Time Spent (min) 55
[2023-08-05 15:57] VITALS: BP 138/86; PULSE 110; RESP 16; TEMP 36.3; O2SAT 98; BMI 23.5
== END 2023-08-05 16:29 | disposition home or self-care (01) ==
PROVIDERS: PCP Internal Medicine; Visit Provider Internal Medicine
DX: G43.909 Migraine, unspecified, not intractable, without status migrainosus (principal); R00.0 Tachycardia, unspecified
CPT/HCPCS: 99215; 99417

== ENCOUNTER 2023-08-06 11:26 | Outpatient (REF) | payer BC, SELFPAY | END 2023-08-06 11:27 | disposition home or self-care (01) | LOC: HO.LNP 11:26 | PROVIDERS: Visit Provider Internal Medicine | DX: R30.0 Dysuria (principal) | CPT/HCPCS: 87086 ==

== ENCOUNTER 2023-09-03 08:02 | Outpatient (AMB) | payer BC, SELFPAY ==
[2023-09-03 08:04] VITALS: BP 118/76; PULSE 111; O2SAT 98; BMI 23.9
--- NOTE | 2023-09-03 08:04 | A.OFFPC_ITS ---
Vital Signs 09/03/23 08:04 Height 5 ft 3 in Weight 135 lb BMI 23.9 BP 118/76 Blood Pressure Location Lt brachial Position Sitting Pulse 111 H Pulse Source Pulse Oximeter Pulse Oximetry (%) 98 Oxygen Delivery Method Room Air Intake Visit Reasons: Annual Intake Note: Patient reports she has been feeling unwell for a little while now. Patient states she will sleep fine, wake up with a headache, is fine throughout her day until about 3pm or 4pm and then she states she feels tired and not herself. Patient states she went for a kidney test which came back normal, patient is still concerned about foam in her urine. 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 Admits to constantly watching her pulse on her fitbit. States she was unable to get her pulse under 95 while sitting at work. Then it went up to 114. Feels SOB. Feels like she's having an anxiety attack. Took zomeg 30 minutes ago. Denies chest pain. seen at [facility] for same on 07/24/23 and discharge home with taper off topiramate for suspected AE. began 25mg qd taper yesterday. HR 109 in triage. very anxious. no respiratory distress. no peripheral edema. Patient notes that she continues to taper down on topamax now doing 1 every other day. Says she feels awful. Episodes of elevated heart rate continue. Denies chest pain, cough, fevers, dysuria. Explains that even prior to going on the topamax she was not feeling well. She reports fatigue, double vision intermittently. Generalized muscle fatigue but denies weakness. She was and continues to wake up with headaches most days. If doesn't wake up with them they can start early or mid day. Previously relieved by relaxing, dark, laying down but no longer as effective. Zomig continues to be effective. 3-5 headache days per week. ROS see HPI PHYSICAL EXAM: GENERAL: Alert and oriented x 3. NAD EYES: EOMI. Anicteric. HENT: Moist mucous membranes. No scleral icterus. No cervical lymphadenopathy. LUNGS: Clear to auscultation bilaterally. CARDIOVASCULAR: Regular rate and rhythm. ABDOMEN: Soft, non-tender +bs EXTREMITIES: No edema. Non-tender. SKIN: No rashes or lesions. Warm. NEUROLOGIC: No focal neurological deficits. CN II-XII grossly intact PSYCHIATRIC: Cooperative. 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 Paul Webb, Marycarmen New, Klever Riley and colleagues, with an educational som from [employer]. Physical exam (Primary Care) Vital Signs: Last Vital Signs Pulse 111 H 09/03/23 08:04 BP 118/76 09/03/23 08:04 Pulse Ox 98 09/03/23 08:04 Oxygen Delivery Method Room Air 09/03/23 08:04 BMI result Body Mass Index 23.9 Tobacco/Smoking Status: Tobacco use Status Tobacco use date assessed 08/05/23 09/03/23 08:11 Patient Tobacco Use Status Never used Tobacco 09/03/23 08:11 e-Cigarette/Vaping Use Never Used 09/03/23 08:11 Thrive Assessment: Date of Thrive Assessment Date Thrive assessed 08/05/23 09/03/23 08:11 Assessment and Plan Assessment & Plan (1) Physical exam: Code(s): Z00.00 - Encounter for general adult medical examination without abnormal findings Plan: Preventive measures discussed. (2) Migraine: Code(s): G43.909 - Migraine, unspecified, not intractable, without status migrainosus Qualifiers: Intractability: not intractable Migraine type: unspecified Status migrainosus presence: without status migrainosus Qualified Code(s): G43.909 - Migraine, unspecified, not intractable, without status migrainosus (3) Fatigue: Code(s): R53.83 - Other fatigue Qualifiers: Fatigue type: unspecified Qualified Code(s): R53.83 - Other fatigue Plan: MRI head, labs ordered (4) Double vision: Code(s): H53.2 - Diplopia Plan: continue follow up ophtho (5) Double vision: Code(s): H53.2 - Diplopia (6) Microscopic hematuria: Code(s): R31.29 - Other microscopic hematuria (7) Iron excess: Code(s): E83.19 - Other disorders of iron metabolism Orders: Orders RT home sleep study 09/03/23 IRON PROFILE 09/03/23 E87.8 - Other disorders of electrolyte and fluid balance, not elsewhere classified, G43.909 - Migraine, unspecified, not intractable, without status migrainosus, R53.83 - Other fatigue Hemoglobin A1c 09/03/23 E87.8 - Other disorders of electrolyte and fluid balance, not elsewhere classified, H53.2 - Diplopia, R53.83 - Other fatigue Osmolality, Serum 09/03/23 E87.8 - Other disorders of electrolyte and fluid balance, not elsewhere classified, G43.909 - Migraine, unspecified, not intractable, without status migrainosus, R53.83 - Other fatigue UA CC w/rflx Micro + Cult 09/03/23 R31.29 - Other microscopic hematuria Cortisol Random 09/03/23 E87.8 - Other disorders of electrolyte and fluid balance, not elsewhere classified, G43.909 - Migraine, unspecified, not intractable, without status migrainosus, H53.2 - Diplopia, R53.83 - Other fatigue Vitamin B12 and Folate 09/03/23 G43.909 - Migraine, unspecified, not intractable, without status migrainosus, R00.0 - Tachycardia, unspecified, R31.29 - Other microscopic hematuria, R53.83 - Other fatigue Osmolality Urine 09/03/23 E87.8 - Other disorders of electrolyte and fluid balance, not elsewhere classified, H53.2 - Diplopia, R53.83 - Other fatigue MR head/brain wo/w con 09/03/23 G43.909 - Migraine, unspecified, not intractable, without status migrainosus, H53.2 - Diplopia, R53.83 - Other fatigue Coding Level of Care Code Est Pt Prev Care 40-64y(47718) Diagnoses Physical exam Z00.00 Migraine without status migrainosus, not intractable, unspecified migraine type G43.909 Intractability: not intractable Migraine type: unspecified Status migrainosus presence: without status migrainosus Fatigue, unspecified type R53.83 Fatigue type: unspecified Double vision H53.2 Microscopic hematuria R31.29 Iron excess E83.19
== END 2023-09-03 10:36 | disposition home or self-care (01) ==
PROVIDERS: PCP Internal Medicine; Visit Provider Internal Medicine
DX: H53.2 Diplopia (principal); Z00.00 Encounter for general adult medical examination without abnormal findings; G43.909 Migraine, unspecified, not intractable, without status migrainosus; R53.83 Other fatigue; R31.29 Other microscopic hematuria; E83.19 Other disorders of iron metabolism
CPT/HCPCS: 99396

== ENCOUNTER 2023-09-03 09:43 | Outpatient (REF) | payer BC, SELFPAY ==
[2023-09-03 11:23] LABS: Appearance Urine Clear; Color Urine Yellow; Glucose Urine UA Negative (Negative); Leukocyte Esterase Urine Negative (Negative); Nitrite Urine Negative (Negative); PH 7.5 (5.0-9.0); Specific Gravity - Urine <= 1.005 (1.005-1.025); UMIC TRIGGER UACC YES; Urine Blood Trace (Negative); Urine Ketones Negative (Negative); Urine Protein Negative (Neg-Trace)
[2023-09-03 11:57] LABS: Estimated Average Glucose 108 mg/dL; Hemoglobin A1c % 5.4 % (<6.0); Osmolality, Serum 296 mosm/kg (281-305)
[2023-09-03 12:21] LABS: Bacteria Urine None Seen (None Seen); Hyaline Casts Urine 0-2 /LPF (0-2); RBC Urine 0-2 /HPF (0-2); Squamous Epithelial Cell Urine 0-2 /HPF (0-2); WBC Urine 0-5 /HPF (0-5)
[2023-09-03 12:23] LABS: Iron 175 mcg/dL (30-160); Percent Iron Saturation 52 % (15-50); Total Iron Binding Capacity 338 mcg/dL (228-428); Unsaturated Iron Binding 163 ug/dL
[2023-09-03 12:25] LABS: Cortisol Random 22.9 ug/dL; Folate 9.3 ng/mL (> or = 4.0); Vitamin B12 342 pg/mL (200-900)
[2023-09-03 14:24] LABS: Osmolality Urine 125 mosm/kg (373-1093)
== END 2023-09-03 09:44 | disposition home or self-care (01) ==
LOC: HO.WFDLDS 09:43
PROVIDERS: Visit Provider Internal Medicine
DX: G43.909 Migraine, unspecified, not intractable, without status migrainosus (principal); R53.83 Other fatigue; H53.2 Diplopia; E87.8 Other disorders of electrolyte and fluid balance, not elsewhere classified; R31.29 Other microscopic hematuria; R00.0 Tachycardia, unspecified; Z13.1 Encounter for screening for diabetes mellitus
CPT/HCPCS: 36415; 81001; 82533; 82607; 82746; 83036; 83540; 83930; 83935

== ENCOUNTER 2023-09-05 09:02 | Outpatient (REF) | payer BC, SELFPAY | END 2023-09-05 09:03 | disposition home or self-care (01) | LOC: HO.WFDLDS 09:02 | PROVIDERS: Visit Provider Internal Medicine | DX: E83.19 Other disorders of iron metabolism (principal); R53.83 Other fatigue | CPT/HCPCS: 36415; 81256 ==

== ENCOUNTER → 2023-11-12 07:47 | Outpatient (REF) | payer BC, SELFPAY | LOC: HO.SL 07:47 | PROVIDERS: PCP Internal Medicine; Visit Provider Internal Medicine | DX: R06.83 Snoring (principal); R53.83 Other fatigue | CPT/HCPCS: 95806 ==

== ENCOUNTER → 2023-11-12 08:01 | Outpatient (BNV) | payer BC, SELFPAY | PROVIDERS: PCP Internal Medicine; Visit Provider Psychiatry & Neurology Neurology | DX: R06.83 Snoring (principal) | CPT/HCPCS: 95806 ==

== ENCOUNTER 2023-12-19 15:20 | Outpatient (AMB) | payer BC, SELFPAY ==
--- NOTE | 2023-12-19 15:31 | A.OFFVIS_ITS ---
Intake Visit Reasons: microscopic hematuria Intake Note: New Patient presents for initial visit for microscopic hematuria Urology Medications: none Blood Thinner: none Design Technician Required: No Accompanied by: Self / Same As Patient Allergies No Known Allergies Allergy (Verified 12/20/23 00:07) Medication List - Last Reconciled 12/20/23 by JED Onofre cholecalciferol (vitamin D3) 25 mcg PO DAILY norethindrone ac-eth estradiol 1-20 mg-mcg tabs PO zolmitriptan mg PO HPI Comments Details: Natividad is a very pleasant 53-year-old female patient of . She presents to the office today as a new patient for microscopic hematuria. In discussion with the patient today she reports having followed up with her PCP for annual visit at which time microscopic hematuria was noted on urinalysis and recommendation was made for urology referral for further assessment evaluation. When asked she denies any previous history of nicotine dependence and or known workplace chemical exposure. In office urinalysis results reviewed with the patient today 3+ leukocytes otherwise within normal limits. We discussed at length potential causes of microscopic hematuria as well as further workup to include urine cytology, retroperitoneal ultrasound as well as in office cystoscopy. She otherwise denies any bothersome urinary issues. She denies urinary urgency, urinary frequency, incontinence, nocturia, gross hematuria, dysuria, foul smelling urine, changes to urinary stream, flank pain, fever, and or chills. She is happy with her current voiding parameters. 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 occupational exposures/hazards: No Cognitive needs: No Hearing needs: No Vision needs: No Review of Systems Const All systems reviewed & are unremarkable except as noted in HPI and below Physical Exam Const General: cooperative, healthy appearing, comfortable, no acute distress, well developed, alert and awake Orientation/consciousness: patient oriented x3 Limitations: no limitations HEENT Head: Yes normal to inspection, Yes normocephalic and Yes atraumatic Ears: hearing grossly normal bilaterally Eyes General: appearance normal, both eyes and all related structures Neck Neck: Yes normal visual inspection and Yes trachea midline Chest Chest palpation & inspection: normal inspection of the chest Resp Effort & Inspection: normal respiratory effort and able to speak in complete sentences Cardio Rate: regular rate GI Inspection: Yes normal to inspection General: Yes no CVA tenderness Back/Spine/Pelvis Back: no CVA tenderness Skin General skin exam: no rashes or lesions noted Neuro General: patient oriented x3 Extrem General: Yes normal to inspection Psych Appearance: grossly normal and well kempt Mental Status: mental status grossly normal Speech and movement: Normal speech and movement present and Clear speech present Affect: normal affect Attitude: cooperative Thought process: Normal thought process present Thought content: Normal thought content present Insight: Fair insight present (Psych) Judgement: Fair judgement present (Psych) Results AMB Urinalysis, Automated UA Leukoctes 0 Tray/uL Last Edit by Jenniffer Zarate on 12/19/23 15:50 UA Nitrite Last Edit by Jenniffer Zarate on 12/19/23 15:50 UA Urobilinogen 0.2 mg/dL Last Edit by Jenniffer Zarate on 12/19/23 15:50 UA Protein 0 mg/dL Last Edit by WilfredVaultizejuan c Zarate on 12/19/23 15:50 UA pH 6.0 Last Edit by [employer] Tessa on 12/19/23 15:50 UA Blood 200 Gucci/uL Last Edit by Snapguidejuan c Zarate on 12/19/23 15:50 UA Specific [place] 1.015 Last Edit by WilfredVaultizejuan c Zarate on 12/19/23 15:50 UA Ketone Last Edit by WilfredVaultizejuan c Zarate on 12/19/23 15:50 UA Bilirubin 0 mg/dL Last Edit by WilfredVaultizejuan c Zarate on 12/19/23 15:50 UA Glucose 0 mg/dL Last Edit by Jenniffer Zarate on 12/19/23 15:50 Results Reviewed Results Reviewed: Laboratory Last Values Urine pH (Auto) 6.0 12/19/23 15:43 Specific [place] (Auto) 1.015 12/19/23 15:43 Urine Protein (Auto) 0 mg/dL 12/19/23 15:43 Glucose (UA)(Auto) 0 mg/dL 12/19/23 15:43 Urine Blood (Auto) 200 Gucci/uL 12/19/23 15:43 Urine Bilirubin (Auto) 0 mg/dL 12/19/23 15:43 Urine Urobilinogen (Auto) 0.2 mg/dL 12/19/23 15:43 Leukocyte Esterase (Auto) 0 Tray/uL 12/19/23 15:43 Assessment & Plan Assessment & Plan (1) Microscopic hematuria: Code(s): R31.29 - Other microscopic hematuria Category: Medical Plan In office urinalysis results reviewed the patient today; as noted above; will send for urine cytology. We discussed at length potential causes of microscopic hematuria. Discussed further microscopic hematuria workup versus surveillance monitoring; risks and benefits of these interventions were discussed. Will obtain retroperitoneal ultrasound for further assessment evaluation. Patient denies any bothersome urinary issues or concerns. She reports be happy with current voiding parameters. Follow-up in office cystoscopy with imaging to be completed prior; or sooner with any issues, concerns, and or questions. Orders: Orders AMB Urinalysis Automated 12/19/23 Z13.9 - Encounter for screening, unspecified Urine Cytology 12/19/23 R31.29 - Other microscopic hematuria US retroperitoneal comp 12/19/23 R31.29 - Other microscopic hematuria Patient Instructions: The patient had an opportunity to ask questions regarding the treatment plan. All questions were answered. Physical exam, labs, and imaging were discussed and reviewed in detail. As well as risks, benefits, and discussion of treatment choices. No major barriers to understanding were identified. The patient expressed understanding and agreement with the above treatment plan. The patient was made aware they should contact our office by phone for worsening of their current condition, the appearance of new symptoms, or with any questions or concerns. Compliance is encouraged with any medications and follow up testing that is ordered. It is a privilege to be allowed the opportunity to participate in? your urological care.? Again, if you have any questions or con cerns If you have any questions or concerns please do not hesitate to contact me. The office is [phone]. This note is constructed using voice recognition software. While every effort has been made to ensure accuracy vice president biostatistics errors may have been included. Yours sincerely, TARIQ Onofre- Coding Level of Care Code New Pt Level 3 (68569) Diagnoses Microscopic hematuria R31.29
== END 2023-12-19 16:11 | disposition home or self-care (01) ==
PROVIDERS: PCP Internal Medicine; Visit Provider Nurse Practitioner Family
DX: R31.29 Other microscopic hematuria (principal)
CPT/HCPCS: 99203

== ENCOUNTER 2023-12-19 15:20 | Outpatient (REF) | payer BC, SELFPAY ==
[2023-12-19 17:30] LABS: Urine Cytology See Pathology rpt
== END 2023-12-19 15:21 | disposition home or self-care (01) ==
LOC: HO.LNP 15:20
PROVIDERS: PCP Internal Medicine; Visit Provider Nurse Practitioner Family
DX: R31.29 Other microscopic hematuria (principal)
CPT/HCPCS: 81003; 88112

== ENCOUNTER 2024-01-14 14:34 | Outpatient (AMB) | payer BC, SELFPAY ==
--- NOTE | 2024-01-14 14:41 | A.OFFPC_ITS ---
Vital Signs 01/14/24 14:46 Height 5 ft 3 in Weight 136 lb 8 oz BMI 24.2 BP 132/86 Blood Pressure Location Lt brachial Position Sitting Pulse 89 Pulse Source Pulse Oximeter Pulse Oximetry (%) 98 Oxygen Delivery Method Room Air Intake Visit Reasons: Migraines Intake Note: Migraine Supervisor Billposting Required: No Allergies No Known Allergies Allergy (Verified 01/14/24 14:45) Tobacco use date assessed: 08/05/23 Dental Screening Dental Screen Date: 08/05/23 HPI HPI Comments History of Present Illness Details 53 yo female with pmhx of migraines, low vitamin D presenting for follow up Continues to not feel well, having more frequent headaches, often daily, fatigue. She had previous consultation for headaches. Was placed on amitriptiline then topamax. Had multiple ER visits with tachycardia, chest pain. Seen in [facility] for same on 07/24/23 and discharge home with taper off topiramate for suspected AE. began 25mg qd taper yesterday. HR 109 in triage. very anxious. no respiratory distress. no peripheral edema. Explained previously that even prior to going on the topamax she was not feeling well. She reports fatigue, double vision intermittently. Generalized muscle fatigue but denies weakness. She was and continues to wake up with headaches most days. If doesn't wake up with them they can start early or mid day. Previously relieved by relaxing, dark, laying down but no longer as effective. Zomig continues to be effective. 3-5 headache days per week but currently has a headache that has persisted for the past 2 weeks. She had MRI ordered but cannot tolerate even with anxiolytic. She had prior head CT in June 2023 that was normal She saw urology and continues work up for microscopic hematuria She had dilute spot urine with testing over the summer. She is pushing a lot of water trying to avoid more frequent or severe headaches. 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 NAD EYES: EOMI. Anicteric. HENT: Moist mucous membranes. No scleral icterus. No cervical lymphadenopathy. LUNGS: Clear to auscultation bilaterally. CARDIOVASCULAR: Regular rate and rhythm. ABDOMEN: Soft, non-tender +bs EXTREMITIES: No edema. Non-tender. SKIN: No rashes or lesions. Warm. NEUROLOGIC: No focal neurological deficits. CN II-XII grossly intact PSYCHIATRIC: Cooperative. 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 1. Little interest or pleasure in doing things: not at all 2. Feeling down, depressed, or hopeless: not at all 3. Trouble falling or staying asleep, or sleeping too much: more than half the days 4. Feeling tired or having little energy: more than half the days 5. Poor appetite or overeating: not at all 6. Feeling bad about yourself - or that you are a failure or have let yourself or your family down: not at all 7. Trouble concentrating on things, such as reading the newspaper or watching television: more than half the days 8. Moving or speaking so slowly that other people could have noticed. Or the opposite - being so fidgety or restless that you have been moving around a lot more than usual: not at all 9. Thoughts that you would be better off or of hurting yourself in some way: not at all Total score: 6 Depression Screening Interpretation: Positive Depression Screening Follow-up: Existing condition Depression Screening Done: Yes 25098 - PHQ-9 Billing: Yes Source: Developed by Drs. Paul Webb, Marycarmen New, Klever Riley and colleagues, with an educational som from [employer]. Thrive Questionnaire Date Thrive assessed: 08/05/23 I am a: Patient What is your living situation today?: I have a steady place to live Within the past 12 months, did the food you bought not last and you didn't have the money to get more?: Never true Within the past 12 months, did you worry whether your food would run out before you got money to buy more?: Never true Do you have trouble paying for medicines?: No Do you have trouble getting transportation to medical appointments?: No Do you have trouble paying your heating and electricity bill?: No Do you have trouble taking care of your child, family member or friend?: No Do you have trouble with day-to-day activities such as bathing, preparing meals, shopping, managing finances, etc.?: No Are you currently unemployed and looking for a job?: No Are you interested in more education?: No Please select the resources that you would like help with: None Currently or been in a relationship where the following occur: No concerns reported THRIVE Score: 0 AUDIT C Alcohol Use Questionnaire (AUDIT-C) 1. How often do you have a drink containing alcohol?: Monthly or less 2. How many drinks containing alcohol do you have on a typical day when you are drinking?: 1 or 2 3. How often do you have six or more drinks on one occasion?: Never Total Score: 1 ANA-7 AMB Questionnaire ANA-7 Date ANA - 7 assessed: 08/05/23 Feeling nervous, anxious, or on edge: 0 = Not at all Not being able to stop or control worryin = Not at all Worrying too much about different things: 0 = Not at all Trouble relaxin = Not at all Being so restless that it is hard to sit still: 0 = Not at all Becoming easily annoyed or irritable: 0 = Not at all Feeling afraid as if something awful might happen: 0 = Not at all Total ANA-7 score (0-4 normal; 5-9 mild; 10-14 moderate; 15-21 severe): 0 Source: Developed by Drs. Paul Webb, Marycarmen New, Klever Riley and colleagues, with an educational som from [employer]. Physical exam (Primary Care) Vital Signs: Last Vital Signs Pulse 89 01/14/24 14:46 BP 132/86 01/14/24 14:46 Pulse Ox 98 01/14/24 14:46 Oxygen Delivery Method Room Air 01/14/24 14:46 BMI result Body Mass Index 24.2 Tobacco/Smoking Status: Tobacco use Status Tobacco use date assessed 08/05/23 01/14/24 14:41 Patient Tobacco Use Status Never used Tobacco 01/14/24 14:46 e-Cigarette/Vaping Use Never Used 01/14/24 14:46 PHQ-9: PHQ-9 Score PHQ-9: Total score 6 01/15/24 09:53 Depression Screening Interpretation: Positive Depression Screening Follow-up: Existing condition Thrive Assessment: Date of Thrive Assessment Date Thrive assessed 08/05/23 01/14/24 14:41 Currently or been in a relationship where the following occur: No concerns reported Coding Level of Care Code Est Pt Level 5 (77644) Diagnoses Other complicated headache syndrome G44.59 Headache type: other complicated headache syndrome Microscopic hematuria R31.29 Additional Codes PHQ-9 - 45142 - PHQ-9 Billing: Yes ([id number]) Time Spent (min) 46 Assessment & Plan Assessment & Plan (1) Headache: Code(s): R51.9 - Headache, unspecified Category: Medical Qualifiers: Headache type: other complicated headache syndrome Qualified Code(s): G44.59 - Other complicated headache syndrome Plan: More frequent, severe headaches. Worse for past six months, even more so since October She continues to use zomig with some relief Fioricet sparing as needed Referral to neurology-she is unable to tolerate MRI and she also is having fatigue, double vision (2) Microscopic hematuria: Code(s): R31.29 - Other microscopic hematuria Category: Medical Plan: continue urology follow up Orders: Orders Osmolality Urine 01/14/24 R82.90 - Unspecified abnormal findings in urine Referrals Neurology Referral H53.2 - Diplopia, R51.9 - Headache, unspecified, R53.83 - Other fatigue Medications: New idefnxawfr-mlrvkpjmyetvt-smoh 50-325-40 mg 1 tab PO Q6H PRN 112 tabs 3RF pain azithromycin 500 mg PO DAILY 5 tabs 0RF 5 days
[2024-01-14 14:46] VITALS: BP 132/86; PULSE 89; O2SAT 98; BMI 24.2
== END 2024-01-14 15:41 | disposition home or self-care (01) ==
PROVIDERS: PCP Internal Medicine; Visit Provider Internal Medicine
DX: G44.59 Other complicated headache syndrome (principal); R31.29 Other microscopic hematuria

== ENCOUNTER → 2024-01-14 14:34 | Outpatient (BNVA) | payer BC, SELFPAY | PROVIDERS: PCP Internal Medicine; Visit Provider Internal Medicine | DX: G44.59 Other complicated headache syndrome (principal); R31.29 Other microscopic hematuria; H53.2 Diplopia; R53.83 Other fatigue | CPT/HCPCS: 96127 ==

== ENCOUNTER 2024-01-16 15:27 | Outpatient (REF) | payer BC, SELFPAY | END 2024-01-16 15:28 | disposition home or self-care (01) | LOC: HO.US 15:27 | PROVIDERS: PCP Internal Medicine; Visit Provider Nurse Practitioner Family | DX: R31.29 Other microscopic hematuria (principal) | CPT/HCPCS: 76770 ==

== ENCOUNTER 2024-02-03 14:25 | Outpatient (AMB) | payer BC, SELFPAY ==
--- NOTE | 2024-02-02 21:48 | MHC.OFFVIS ---
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 denies any previous history of nicotine dependence--Had renal ultrasound 01/16/2024, official reading not transcribed. Preliminary report- Left kidney small simple cyst, right kidney pelvic fullness. Urine cytology- Collected: 12/19/23--negative for malignant cells-- Cystoscopy findings: mild inflammatory changes consistent with cystitis. No suspicious lesions visualized. Review of chart: 12/19/23--Natividad is a very pleasant 53-year-old female patient of . She presents to the office today as a new patient for microscopic hematuria. In discussion with the patient today she reports having followed up with her PCP for annual visit at which time microscopic hematuria was noted on urinalysis and recommendation was made for urology referral for further assessment evaluation. When asked she denies any previous history of nicotine dependence and or known workplace chemical exposure. In office urinalysis results reviewed with the patient today 3+ leukocytes otherwise within normal limits. We discussed at length potential causes of microscopic hematuria as well as further workup to include urine cytology, retroperitoneal ultrasound as well as in office cystoscopy. She otherwise denies any bothersome urinary issues. She denies urinary urgency, urinary frequency, incontinence, nocturia, gross hematuria, dysuria, foul smelling urine, changes to urinary stream, flank pain, fever, and or chills. She is happy with her current voiding parameters. 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 Current occupational exposures/hazards: No Cognitive needs: No Hearing needs: No Vision needs: No Review of Systems Const All systems reviewed & are unremarkable except as noted in HPI and below Reports no additional complaints Eyes Reports no additional complaints ENT Reports no additional complaints Card Reports no additional complaints Resp Reports no additional complaints GI Reports no additional complaints Reports as per HPI Musc Reports no additional complaints Skin/Breast Reports system reviewed and no additional complaints, except as documented Neuro Reports no additional complaints Psych Reports no additional complaints Endo Reports no additional complaints /Lymph Reports no additional complaints Aller/Immun Reports no additional complaints Office Procedures Cystoscopy Consent Discussed risk and benefit or proposed procedure with the patient. Information consent for procedure given to the patient. Discussed technical aspects, risks, benefits and alternatives in full. Addressed all of the patient's questions and concerns regarding the procedure. The patient demonstrated knowledge and understanding. They wish to proceed with this procedure. Preparation The patient was prepped in the usual manner. A custom shop worker was present and in the room. Genitalia was prepped with betadine solution in a sterile manner. Lidocaine Jelly 2% was placed into the urethra and 16Fr flexible Olympus cystoscope was inserted into the meatus after adequate lubrication. Procedure Time out per protocol performed. Bladder Inspection Bladder Inspection: The bladder was inspected in its entirety with utilization retroflexion displaying: Tumor(s): no suspicious bladder lesions visualized Trabeculation: NA Mucosal Erthema: mild Orifices: normal shape and position Urethra: normal Cystoscopy findings: mild inflammatory changes consistent with cystitis. No suspicious lesions visualized. [id number] DISPOSABLE SCOPE URO-G FLEXIBLE SCOPE Procedure code (CPT) selection complete Office Meds lidocaine HCl 2 % mucosal jelly in applicator Performing Provider: Ronal Vaughn MD [facility] Documented (not given) by: Ronal Vaughn MD on 02/05/24 08:49 Dose Route Admin Location Dispensed Lot Number Expiration Date [facility] Apartment Manager 10 mL intra-urethral mL naproxen 500 mg tablet Performing Provider: Ronal Vaughn MD [facility]forming [facility] Documented (not given) by: Ronal Vaughn MD on 02/05/24 08:49 Dose Route Admin Location Dispensed Lot Number Expiration Date [employer] Apartment Manager 500 mg PO tab ciprofloxacin HCl 500 mg tablet Performing Provider: Ronal Vaughn MD [facility]forming [facility] Documented (not given) by: Ronal Vaughn MD on 02/05/24 08:49 Dose Route Admin Location Dispensed Lot Number Expiration Date NDC Apartment Manager 500 mg PO tab Results AMB Urinalysis, Automated UA Leukoctes 0 Tray/uL Last Edit by Camille Henry CMA on 02/03/24 15:23 UA Nitrite Negative Last Edit by Camille Henry, GREGG on 02/03/24 15:23 UA Urobilinogen 0.2 mg/dL Last Edit by Camille Henry, GREGG on 02/03/24 15:23 UA Protein 0 mg/dL Last Edit by Camille Henry, GREGG on 02/03/24 15:23 UA pH 6.0 Last Edit by Camille Henry, MANAGER OF IT on 02/03/24 15:23 UA Blood 80 Gucci/uL Last Edit by Camille Henry, GREGG on 02/03/24 15:23 UA Specific Tiger 1.015 Last Edit by Camille Henry CMA on 02/03/24 15:23 UA Ketone Negative Last Edit by Camille Henry CMA on 02/03/24 15:23 UA Bilirubin 0 mg/dL Last Edit by Camille Henry, GREGG on 02/03/24 15:23 UA Glucose 0 mg/dL Last Edit by Camille Henry, GREGG on 02/03/24 15:23 Results Reviewed Results Reviewed: Laboratory Last Values Urine pH (Auto) 6.0 02/03/24 15:21 Specific Tiger (Auto) 1.015 02/03/24 15:21 Urine Protein (Auto) 0 mg/dL 02/03/24 15:21 Glucose (UA)(Auto) 0 mg/dL 02/03/24 15:21 Urine Ketones (Auto) Negative 02/03/24 15:21 Urine Blood (Auto) 80 Gucci/uL 02/03/24 15:21 Urine Nitrite (Auto) Negative 02/03/24 15:21 Urine Bilirubin (Auto) 0 mg/dL 02/03/24 15:21 Urine Urobilinogen (Auto) 0.2 mg/dL 02/03/24 15:21 Leukocyte Esterase (Auto) 0 Tray/uL 02/03/24 15:21 Renal ultrasound: 01/16/2024, official reading not transcribed. Preliminary report- Left kidney small simple cyst, right kidney pelvic fullness Urine cytology- Collected: 12/19/23 Location: [facility] Received: 12/20/23 Diagnosis Urine: Negative for high-grade urothelial carcinoma. See comment. COMMENT: Cellular specimen consisting of squamous cells and rare chronic inflammatory cells. Clinical History Other microscopic hematuria Material Received Urine Gross Description Received is 65 cc of clear yellow fluid from which a ThinPrep slide is prepared. Assessment & Plan Assessment & Plan (1) Microscopic hematuria: Code(s): R31.29 - Other microscopic hematuria Category: Medical Plan Cystoscopy findings: mild inflammatory changes consistent with cystitis. No suspicious lesions visualized. Send urine for FISH. FU with Nurse Practitioner in 6 months Orders: Orders AMB Urinalysis Automated 02/03/24 Z13.9 - Encounter for screening, unspecified AMB Cystoscopy 02/03/24 R31.29 - Other microscopic hematuria, R82.90 - Unspecified abnormal findings in urine FISH Bladder Cancer 02/03/24 R31.29 - Other microscopic hematuria Medications: New lidocaine HCl 2% 10 mL intra-urethral ONCE 10 mL 0RF R31.29 - Other microscopic hematuria, R82.90 - Unspecified abnormal findings in urine naproxen 500 mg PO ONCE PRN 1 tab 0RF pain R31.29 - Other microscopic hematuria, R82.90 - Unspecified abnormal findings in urine ciprofloxacin HCl 500 mg PO ONCE 1 tab 0RF R31.29 - Other microscopic hematuria, R82.90 - Unspecified abnormal findings in urine Patient Instructions: The patient had an opportunity to ask questions regarding treatment plan. The patient expressed understanding and agreement with the above treatment plan. The patient is aware they should contact our office by phone for worsening of their current condition or the appearance of new symptoms. Compliance is encouraged with any medications and followup testing that is ordered. It is a privilege to be allowed the opportunity to participate in the urologic care of your patient. If you have any questions or concerns regarding treatment for the above conditions please do not hesitate to contact me. The office telephone contact is [phone]. This note is constructed in part using voice recognition software. While every effort has been made to ensure accuracy technical healthcare consultant errors may have been included. Yours sincerely, Ronal Vaughn MD Coding Level of Care Code Global (26347) Diagnoses Microscopic hematuria R31.29 CPT Codes Cystoscopy - CPT: 54735-[id number] ([id number])
== END 2024-02-03 16:01 | disposition home or self-care (01) ==
PROVIDERS: PCP Internal Medicine; Visit Provider Urology
DX: R31.29 Other microscopic hematuria (principal)
CPT/HCPCS: 52000

== ENCOUNTER → 2024-02-03 14:25 | Outpatient (BNVA) | payer BC, SELFPAY | PROVIDERS: PCP Internal Medicine; Visit Provider Urology | DX: R31.29 Other microscopic hematuria (principal) | CPT/HCPCS: 52000; 81003 ==

== ENCOUNTER 2024-02-28 15:22 | Outpatient (REF) | payer BC, SELFPAY ==
[2024-02-28 18:01] LABS: Appearance Urine Clear; Color Urine Yellow; Glucose Urine UA Negative (Negative); Leukocyte Esterase Urine Trace (Negative); Nitrite Urine Negative (Negative); Specific Gravity - Urine 1.015 (1.005-1.025); UMIC TRIGGER UACC YES; Urine Blood Small (1+) (Negative); Urine Ketones Negative (Negative); Urine Protein Negative (Neg-Trace)
[2024-02-28 18:25] LABS: Bacteria Urine Trace (None Seen); Hyaline Casts Urine 0-2 /LPF (0-2); WBC Urine 0-5 /HPF (0-5)
[2024-02-28 18:31] LABS: Osmolality Urine 535 mosm/kg (373-1093)
== END 2024-02-28 15:23 | disposition home or self-care (01) ==
LOC: HO.WFDLDS 15:22
PROVIDERS: Referring Provider Urology; Visit Provider Internal Medicine
DX: R31.29 Other microscopic hematuria (principal); R82.90 Unspecified abnormal findings in urine
CPT/HCPCS: 81001; 83935; 88121

== ENCOUNTER 2024-03-03 14:39 | Outpatient (AMB) | payer BC, SELFPAY ==
--- NOTE | 2024-03-03 14:41 | MHC.PC.OV ---
Vital Signs 03/03/24 14:43 Height 5 ft 3 in Weight 140 lb 2 oz BMI 24.8 BP 122/68 Blood Pressure Location Rt brachial Position Sitting Respiration 13 Pulse 92 Pulse Source Pulse Oximeter Pulse Oximetry (%) 97 Oxygen Delivery Method Room Air Intake Visit Reasons: Followup on blood work Intake Note: follow up on labs, patient also complaining of both hands swollen and both feet all day yesterday, also joint pain since yesterday Medical Office Representative Required: No Allergies No Known Allergies Allergy (Verified 03/03/24 14:41) Tobacco use date assessed: 08/05/23 Dental Screening Dental Screen Date: 08/05/23 HPI HPI Comments History of Present Illness Details 53 yo female with pmhx of migraines, low vitamin D presenting for follow up Continues to not feel well, having more frequent headaches, often daily, fatigue. She had previous consultation for headaches. Was placed on amitriptiline then topamax. Had multiple ER visits with tachycardia, chest pain. Seen in [facility] ED for same on 07/24/23 and discharge home with taper off topiramate for suspected AE. began 25mg qd taper yesterday. HR 109 in triage. very anxious. no respiratory distress. no peripheral edema. Explained previously that even prior to going on the topamax she was not feeling well. She reports fatigue, double vision intermittently. Generalized muscle fatigue but denies weakness. She was and continues to wake up with headaches most days. If doesn't wake up with them they can start early or mid day. Previously relieved by relaxing, dark, laying down but no longer as effective. Zomig continues to be effective. She had MRI ordered but cannot tolerate even with anxiolytic. She had prior head CT in June 2023 that was normal. She has an appt for neurology in a few months. Takes one fioricet nightly which is helping. She is currently having a 2 day flare of polymyalgia, polyarthralgia. Worse in left CMC and left shoulder. She saw urology-microscopic hematuria. Reassuring She had dilute spot urine with testing over the summer. She is pushing a lot of water trying to avoid more frequent or severe headaches. 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 NAD EYES: EOMI. Anicteric. HENT: Moist mucous membranes. No scleral icterus. No cervical lymphadenopathy. LUNGS: Clear to auscultation bilaterally. CARDIOVASCULAR: Regular rate and rhythm. ABDOMEN: Soft, non-tender +bs EXTREMITIES: No edema. Non-tender. SKIN: No rashes or lesions. Warm. NEUROLOGIC: No focal neurological deficits. CN II-XII grossly intact PSYCHIATRIC: Cooperative. 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 1. Little interest or pleasure in doing things: not at all 2. Feeling down, depressed, or hopeless: not at all 3. Trouble falling or staying asleep, or sleeping too much: not at all 4. Feeling tired or having little energy: more than half the days 5. Poor appetite or overeating: not at all 6. Feeling bad about yourself - or that you are a failure or have let yourself or your family down: not at all 7. Trouble concentrating on things, such as reading the newspaper or watching television: not at all 8. Moving or speaking so slowly that other people could have noticed. Or the opposite - being so fidgety or restless that you have been moving around a lot more than usual: not at all 9. Thoughts that you would be better off or of hurting yourself in some way: not at all Total score: 2 Source: Developed by Drs. Paul Webb, Marycarmen New, Klever Riley and colleagues, with an educational som from [employer]. Thrive Questionnaire Date Thrive assessed: 01/07/24 I am a: Patient What is your living situation today?: I have a steady place to live Within the past 12 months, did the food you bought not last and you didn't have the money to get more?: Never true Within the past 12 months, did you worry whether your food would run out before you got money to buy more?: Never true Do you have trouble paying for medicines?: No Do you have trouble getting transportation to medical appointments?: No Do you have trouble paying your heating and electricity bill?: No Do you have trouble taking care of your child, family member or friend?: No Do you have trouble with day-to-day activities such as bathing, preparing meals, shopping, managing finances, etc.?: No Are you currently unemployed and looking for a job?: No Are you interested in more education?: No Please select the resources that you would like help with: None Currently or been in a relationship where the following occur: No concerns reported THRIVE Score: 0 AUDIT C Alcohol Use Questionnaire (AUDIT-C) 1. How often do you have a drink containing alcohol?: Never Total Score: 0 ANA-7 AMB Questionnaire ANA-7 Date ANA - 7 assessed: 08/05/23 Feeling nervous, anxious, or on edge: 0 = Not at all Not being able to stop or control worryin = Not at all Worrying too much about different things: 0 = Not at all Trouble relaxin = Not at all Being so restless that it is hard to sit still: 0 = Not at all Becoming easily annoyed or irritable: 0 = Not at all Feeling afraid as if something awful might happen: 0 = Not at all Total ANA-7 score (0-4 normal; 5-9 mild; 10-14 moderate; 15-21 severe): 0 Source: Developed by Drs. Paul Webb, Marycarmen New, Klever Riley and colleagues, with an educational som from [employer]. Physical exam (Primary Care) Vital Signs: Last Vital Signs Pulse 92 03/03/24 14:43 Resp 13 03/03/24 14:43 BP 122/68 03/03/24 14:43 Pulse Ox 97 03/03/24 14:43 Oxygen Delivery Method Room Air 03/03/24 14:43 BMI result Body Mass Index 24.8 Tobacco/Smoking Status: Tobacco use Status Tobacco use date assessed 08/05/23 03/03/24 14:45 Patient Tobacco Use Status Never used Tobacco 03/03/24 14:45 e-Cigarette/Vaping Use Never Used 03/03/24 14:45 PHQ-9: PHQ-9 Score PHQ-9: Total score 2 03/04/24 09:42 Thrive Assessment: Date of Thrive Assessment Date Thrive assessed 01/07/24 03/03/24 14:45 Currently or been in a relationship where the following occur: No concerns reported Coding Level of Care Code Est Pt Level 4 (64025) Complex EM visit Add On G2211 Diagnoses Polyarthralgia M25.50 Other complicated headache syndrome G44.59 Headache type: other complicated headache syndrome Assessment & Plan Assessment & Plan (1) Polyarthralgia: Code(s): M25.50 - Pain in unspecified joint Category: Medical Plan: labs ordered referral to rheumatology (2) Headache: Code(s): R51.9 - Headache, unspecified Category: Medical Qualifiers: Headache type: other complicated headache syndrome Qualified Code(s): G44.59 - Other complicated headache syndrome Plan: Pending neurology consult. Advised limiting to one fioricet daily as she is doing continue triptan prn Orders: Orders IRON PROFILE 03/03/24 M25.50 - Pain in unspecified joint, M65.4 - Radial styloid tenosynovitis [de Quervain] Erythrocyte Sedimentation Rate 03/03/24 M25.50 - Pain in unspecified joint, M65.4 - Radial styloid tenosynovitis [de Quervain] Lyme IgG/IgM w/reflex to WB 03/03/24 M25.50 - Pain in unspecified joint, M65.4 - Radial styloid tenosynovitis [de Quervain] IVAN Reflex Titer and Pattern 03/03/24 M25.50 - Pain in unspecified joint, M65.4 - Radial styloid tenosynovitis [de Quervain] CRP High Sensitivity 03/03/24 M25.50 - Pain in unspecified joint, M65.4 - Radial styloid tenosynovitis [de Quervain] Medications: New prednisone 40 mg (2 x 20 mg) PO DAILY 10 tabs 0RF Changed From zolmitriptan PO To zolmitriptan Max 2 tabs/24 hours 5 mg PO Q2H PRN 90 tabs 3RF migraine headache Refilled bwsshywwol-wahoaoxknzwhc-[id number] 50-325-40 mg 1 tab PO Q6H PRN 112 tabs 3RF pain
[2024-03-03 14:43] VITALS: BP 122/68; PULSE 92; RESP 13; O2SAT 97; BMI 24.8
== END 2024-03-03 16:30 | disposition home or self-care (01) ==
PROVIDERS: PCP Internal Medicine; Visit Provider Internal Medicine
DX: M25.50 Pain in unspecified joint (principal); G44.59 Other complicated headache syndrome

== ENCOUNTER 2024-03-03 15:14 | Outpatient (REF) | payer BC, SELFPAY ==
[2024-03-03 18:27] LABS: Iron 46 mcg/dL (30-160); Percent Iron Saturation 22 % (15-50); Total Iron Binding Capacity 210 mcg/dL (228-428); Unsaturated Iron Binding 164 ug/dL
[2024-03-03 19:24] LABS: Erythrocyte Sedimentation Rate 16 MM/HR (0-20)
[2024-03-04 19:54] LABS: Lyme Abs Screen <0.90 index
[2024-03-04 20:03] LABS: CRP High Sensitivity 4.2 mg/L
[2024-03-05 15:13] LABS: Anti Nuclear Antibody Screen NEGATIVE (NEGATIVE)
== END 2024-03-03 15:15 | disposition home or self-care (01) ==
LOC: HO.WFDLDS 15:14
PROVIDERS: Visit Provider Internal Medicine
DX: M25.50 Pain in unspecified joint (principal); M65.4 Radial styloid tenosynovitis [de Quervain]; G44.59 Other complicated headache syndrome
CPT/HCPCS: 36415; 83540; 85652; 86038; 86141; 86617; 86618

== ENCOUNTER 2024-08-03 14:21 | Outpatient (REF) | payer BC, SELFPAY | END 2024-08-03 14:22 | disposition home or self-care (01) | LOC: HO.LNP 14:21 | PROVIDERS: PCP Internal Medicine; Visit Provider Nurse Practitioner Family | DX: R82.90 Unspecified abnormal findings in urine (principal); R31.29 Other microscopic hematuria | CPT/HCPCS: 81003; 88121 ==

== ENCOUNTER 2024-08-03 14:21 | Outpatient (AMB) | payer BC, SELFPAY ==
--- NOTE | 2024-08-03 14:48 | MHC.OFFVIS ---
Intake Visit Reasons: 6m UA Intake Note: Patient presents today for follow up on: microscopic hematuria Urology Medications: none Blood Thinner: none Caddie Supervisor Required: No Accompanied by: Self / Same As Patient Allergies No Known Allergies Allergy (Verified 08/03/24 15:16) Medication List - Last Reconciled 08/03/24 by JED Onofre cholecalciferol (vitamin D3) 25 mcg PO DAILY magnesium oxide 400 mg PO DAILY riboflavin (vitamin B2) 400 mg PO DAILY zolmitriptan 5 mg PO Q2H PRN HPI Comments Details: Natividad is a very pleasant 54-year-old female patient of . She presents to the office today for follow-up of her microscopic hematuria. In discussion with the patient today she reports to be doing and feeling well. She denies having had any bothersome urinary issues or concerns since her last office visit here. In office urinalysis results reviewed with the patient today no microscopic hematuria noted. We discussed at length potential causes of persistent microscopic hematuria verses intermittent microscopic hematuria. Previous workup has included a retroperitoneal ultrasound 01/18 noting mild fullness to the right renal pelvis. No right renal calculi. Left kidney with no hydronephrosis or renal calculi. 0.5 cm mid pole cyst with benign features per radiology report. The bladder is well distended and unremarkable. Patient also underwent an office cystoscopy with Dr. Eliezer Bernardo 02/17 that noted mild inflammatory changes consistent with cystitis. No suspicious lesions visualized. Urine cytology 12/18 negative for malignant cells. She denies urinary urgency, urinary frequency, incontinence, nocturia, gross hematuria, dysuria, foul smelling urine, changes to urinary stream, flank pain, fever, and or chills. She is happy with her current voiding parameters. All questions were answered. She otherwise offers no other issues or concerns at this time. 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 Current occupational exposures/hazards: No Cognitive needs: No Hearing needs: No Vision needs: No Review of Systems Const All systems reviewed & are unremarkable except as noted in HPI and below Physical Exam Const General: cooperative, healthy appearing, comfortable, no acute distress, well developed, alert and awake Orientation/consciousness: patient oriented x3 Limitations: no limitations HEENT Head: Yes normal to inspection, Yes normocephalic and Yes atraumatic Ears: hearing grossly normal bilaterally Eyes General: appearance normal, both eyes and all related structures Neck Neck: Yes normal visual inspection and Yes trachea midline Chest Chest palpation & inspection: normal inspection of the chest Resp Effort & Inspection: normal respiratory effort and able to speak in complete sentences Cardio Rate: regular rate GI Inspection: Yes normal to inspection General: Yes no CVA tenderness Back/Spine/Pelvis Back: no CVA tenderness Skin General skin exam: no rashes or lesions noted Neuro General: patient oriented x3 Extrem General: Yes normal to inspection Psych Appearance: grossly normal and well kempt Mental Status: mental status grossly normal Speech and movement: Normal speech and movement present and Clear speech present Affect: normal affect Attitude: cooperative Thought process: Normal thought process present Thought content: Normal thought content present Insight: Fair insight present (Psych) Judgement: Fair judgement present (Psych) Results AMB Urinalysis, Automated UA Leukoctes 0 Tray/uL Last Edit by Jenniffer Zarate [facility] on 08/03/24 16:02 UA Nitrite Last Edit by Jenniffer Zarate [facility] on 08/03/24 16:02 UA Urobilinogen 0.2 mg/dL Last Edit by Jenniffer Zarate [facility] on 08/03/24 16:02 UA Protein 0 mg/dL Last Edit by Jenniffer Zarate [facility] on 08/03/24 16:02 UA pH 6.5 Last Edit by Jenniffer Zarate [facility] on 08/03/24 16:02 UA Blood 0 Gucci/uL Last Edit by Jenniffer Zarate [facility] on 08/03/24 16:02 UA Specific Blodgett 1.005 Last Edit by Jenniffer Zarate [facility] on 08/03/24 16:02 UA Ketone Last Edit by Jenniffer Zarate [facility] on 08/03/24 16:02 UA Bilirubin 0 mg/dL Last Edit by Jenniffer Zarate [facility] on 08/03/24 16:02 UA Glucose 0 mg/dL Last Edit by Jenniffer Zarate [facility] on 08/03/24 16:02 Results Reviewed Results Reviewed: Laboratory Last Values Urine pH (Auto) 6.5 08/03/24 15:57 Specific Blodgett (Auto) 1.005 08/03/24 15:57 Urine Protein (Auto) 0 mg/dL 08/03/24 15:57 Glucose (UA)(Auto) 0 mg/dL 08/03/24 15:57 Urine Blood (Auto) 0 Gucci/uL 08/03/24 15:57 Urine Bilirubin (Auto) 0 mg/dL 08/03/24 15:57 Urine Urobilinogen (Auto) 0.2 mg/dL 08/03/24 15:57 Leukocyte Esterase (Auto) 0 Tray/uL 08/03/24 15:57 Assessment & Plan Assessment & Plan (1) Microscopic hematuria: Code(s): R31.29 - Other microscopic hematuria Category: Medical Plan In office urinalysis results reviewed with the patient today; as noted above. She currently denies any bothersome urinary issues or concerns. She reports be happy with current voiding parameters. We discussed at length potential causes of microscopic hematuria. Will continue with surveillance monitoring. Follow-up in 1 year with imaging to be completed prior; or sooner with any issues, concerns, and or questions. Orders: Orders AMB Urinalysis Automated Today Z13.9 - Encounter for screening, unspecified FISH Bladder Cancer Today R31.29 - Other microscopic hematuria, R82.90 - Unspecified abnormal findings in urine Patient Instructions: The patient had an opportunity to ask questions regarding the treatment plan. All questions were answered. Physical exam, labs, and imaging were discussed and reviewed in detail. As well as risks, benefits, and discussion of treatment choices. No major barriers to understanding were identified. The patient expressed understanding and agreement with the above treatment plan. The patient was made aware they should contact our office by phone for worsening of their current condition, the appearance of new symptoms, or with any questions or concerns. Compliance is encouraged with any medications and follow up testing that is ordered. It is a privilege to be allowed the opportunity to participate in? your urological care.? Again, if you have any questions or concerns If you have any questions or concerns please do not hesitate to contact me. The office is [phone]. This note is constructed using voice recognition software. While every effort has been made to ensure accuracy display department manager errors may have been included. Yours sincerely, TARIQ Onofre-MARCOS Coding Level of Care Code Est Pt Level 3 (57643) Diagnoses Microscopic hematuria R31.29
--- OUTSIDE RECORDS SUMMARY | 2024-08-03 16:18 | XMS_ITS | Clinical Summary ---
Author Organization [facility] Facility Address [address] [address] Care Team Providers Care Director Metabolism Name Role Phone Veronica Ordaz MD Primary Care Provider [phone] Allergies No known active allergies Medications ZOLMitriptan (ZOMIG) 5 MG tablet Take 5 mg by mouth 05/17/2021 Active norethindrone-et hinyl estradiol (MICROGESTIN 03/16) 1-20 MG-MCG per tablet Take 1 tablet by mouth 1 (one) time each day 10/18/2022 Active Melatonin 5 MG tablet Take by mouth Active cholecalciferol (VITAMIN D-3) 25 MCG (1000 UT) tablet Take 1 tablet by mouth 1 (one) time each day 05/17/2021 Active Active Problems Problem Noted Date Diagnosed Date Chronic kidney disease, stage 2 (mild) 3 Stage 3a chronic kidney disease 10/30/2022 Break-through bleeding 12/26/2021 3 Overview (10/30/2022): Last Assessment & Plan: Offered to stop and see if her periods return as she may be approaching menopause, vs stop for 7 days and then resume for an additional year to ensure no menstrual migraine return. She is most interested in stopping temporarily and restarting. She will return for AG to review outcome of medication holiday or sooner prn. Gastroparesis 07/13/2021 10/30/2022 Overview (10/30/2022): 06/06/2021 visit [facility] 06/06/2021 visit [facility] Diverticular disease 07/13/2021 10/30/2022 Menstrual migraine 01/24/2021 10/30/2022 Overview (10/30/2022): Last Assessment & Plan: Will change OCP to continuous use to avoid hormonally mediated migraines. She will follow up prn. Warned re: possible BTB. Last Assessment & Plan: Will change OCP to continuous use to avoid hormonally mediated migraines. She will follow up prn. Warned re: possible BTB. Gastritis 12/15/2020 10/30/2022 Premenstrual tension syndrome 10/25/2020 Overview (10/30/2022): Last Assessment & Plan: I counseled her she can try combined OCP. No contraindications as she does not have aura with her migraines. May help with fatigue, etc. She was counseled on correct use and what to do if she misses a pill. She was encouraged to use back up barrier protection for 2 weeks prior to engaging in unprotected intercourse to avoid . She was encouraged to continue to use condoms to prevent STI. She was counseled re: most commonly expected SE including BTB when starting, breast tenderness, and headache. She was counseled re: risk of VTE and encouraged to call with signs or sx. Her history was reviewed and she has no contraindications to estrogen use. She will return for follow up in 3 months. Last Assessment & Plan: I counseled her she can try combined OCP. No contraindications as she does not have aura with her migraines. May help with fatigue, etc. She was counseled on correct use and what to do if she misses a pill. She was encouraged to use back up barrier protection for 2 weeks prior to engaging in unprotected intercourse to avoid . She was encouraged to continue to use condoms to prevent STI. She was counseled re: most commonly expected SE including BTB when starting, breast tenderness, and headache. She was counseled re: risk of VTE and encouraged to call with signs or sx. Her history was reviewed and she has no contraindications to estrogen use. She will return for follow up in 3 months. Vitamin D deficiency 08/14/2018 10/30/2022 Hypercholesterolemia 06/30/2014 10/30/2022 Family history of malignant neoplasm of breast 0 08/04/2010 10/30/2022 Overview (10/30/2022): [facility] Immunizations Immunization Administration Dates Next Due Influenza, MDCK, PF, Quadrivalent 05/17/2021,02/2018 Influenza, Unspecified 12/22/2018,11/19/2014, PPD Test 01/14/2006 Pfizer SARS-COV-2 11/25/2020,05/27/2020,05/07/19 21 Td 12/27/2005 Tdap 05/01/2012 Varicella 06/26/2016,11/23/2010 Family History Relation Status Comments Father Mother Social History Tobacco Use Types Packs/Day Years Used Date Smoking Tobacco: Never Tobacco Cessation:Counseling Given: Not Answered Alcohol Use Standard Drinks/Week Comments Never 0 (1 standard drink = 0.6 oz pur e alcohol) Comments Unknown Sex and Gender Information Value Date Recorded Sex Assigned at Not on file Legal Sex Female 9:33 AM EDT Gender Identity Not on file Sexual Orientation Not on file Last Filed Vital Signs Vital Sign Reading Time Taken Comments Blood Pressure 125/66 12/25/2022 2:27 PM EDT Pulse 97 12/25/2022 2:27 PM EDT Temperature - - Respiratory Rate - - Oxygen Saturation 99% 12/25/2022 2:27 PM EDT Inhaled Oxygen Concentration - - Weight 62.5 kg (137 lb 12.8 oz) 10/30/2022 2:44 PM EDT Height - - Body Mass Index - - Plan of Treatment Health Maintenance Due Date Last Done Comments Breast Cancer Screening 1970 Hepatitis B Vaccine (1 of 3 - 19+ 3-dose series) 1989 Pneumococcal Vaccine: 50+ Ye ars (1 of 2 - PCV) 1989 Colorectal Cancer Screening: Annual FOBT 05/30/2019 Colorectal Cancer Screening: Colonoscopy 05/30/2019 Colorectal Cancer Screening: Sigmoidoscopy 05/30/2019 Influenza Vaccine (Season Ended) 2024 05/17/2021, 05/17/2021, 12/22/2018, Additional history exists Insurance Care Teams Director Metabolism Relationship Specialty Start Date End Date Veronica Ordaz MD [address] [place] [address] PCP - General Internal Medicine 05/09/22
== END 2024-08-03 15:17 | disposition home or self-care (01) ==
LOC: HO.HUSH 14:22
PROVIDERS: PCP Internal Medicine; Visit Provider Nurse Practitioner Family
DX: Z13.9 Encounter for screening, unspecified (principal); R31.29 Other microscopic hematuria
CPT/HCPCS: 99213

== ENCOUNTER 2024-10-31 16:11 | Emergency (ER) | payer BC, SELFPAY ==
--- NOTE | ~2024-10-31 | CT_ITS ---
CLINICAL HISTORY: dizzness CT Head without contrast. CT angiography head and neck with contrast. 3D Postprocessing. Comparison: CT/SR - CT HEAD WITHOUT IV CONTRAST - 07/24/2023 06:57 PM EDT Findings: HEAD CT: No intra-axial mass, midline shift, hydrocephalus, or acute hemorrhage. No significant atrophy-like change or white matter disease. The visualized paranasal sinuses and mastoid air cells are normal. The orbits are unremarkable. No skull fracture. HEAD AND NECK CTA: Aortic arch and cervical great vessels are patent. Intracranial arteries are patent. No aneurysm, dissection, or occlusion. No abnormal intracranial enhancement. The visualized thyroid gland is unremarkable. No cervical mass or fluid collection. Lung apices clear. No acute fracture. IMPRESSION: 1. Unremarkable head CT. 2. Patent head and neck CTA. This document has been electronically signed by: Radu France MD on 10/31/2024 19:33:26
[2024-10-31 16:23] VITALS: BP 164/93; PULSE 94; RESP 20; TEMP 36; O2SAT 100; BMI 24.3
--- NOTE | 2024-10-31 16:25 | ED_ITS ---
HPI - General Adult General Chief complaint: Nausea/Vomiting/Diarrhea Stated complaint: pulse@51, nauseas,motion sickness,tingly all over Time Seen by Provider: 10/31/24 17:30 Source: patient Mode of arrival: ambulatory Limitations: no limitations History of Present Illness HPI narrative: This is a 54 years old the patient presented ambulatory to the ED with a chief complaint of nausea dizziness described as a motion sickness symptoms started about a couple of hours ago she has similar symptoms about 2 weeks ago. She is over whole healthy lady she is off from migraines she takes magnesium for migraines no history of diabetes/hypertension /hypercholesterolemia/ smoke. She is ambulatory to the emergency department Onset (ago): hour(s) (2) Radiation: non-radiation Severity: mild Pain Consistency: now resolved Relieving factors: none Exacerbating factors: none Associated symptoms: denies other symptoms Related Data Home Medications ?Medication ?Instructions ?Recorded ?Confirmed cholecalciferol (vitamin D3) 25 25 mcg PO DAILY 02/03/24 mcg (1,000 unit) capsule magnesium oxide 400 mg PO DAILY 08/03/24 riboflavin (vitamin B2) 400 mg 400 mg PO DAILY 5 tablet Previous Rx's ?Medication ?Instructions ?Recorded zolmitriptan 5 mg tablet 5 mg PO Q2H PRN migraine hea dache 03/03/24 #90 tabs meclizine 25 mg tablet 25 mg PO TID PRN dizziness # 15 tabs 10/31/24 ondansetron 4 mg disintegrating 4 mg PO Q8H 4 days #12 tabs 10/31/24 tablet Allergies Allergy/AdvReac Type Severity Reaction Status Date / Time No Known Allergies Allergy Verified 10/31/24 16:26 Review of Systems 2 Constitutional: Constitutional: Reports no additional constitutional complaints ENT: Reports system reviewed and no additional complaints, except as documented Respiratory: Respiratory: Reports no additional respiratory complaints [facility] Past Medical History Attestation statement: The following information was validated with the patient. 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 Current occupational exposures/hazards: No Cognitive needs: No Hearing needs: No Vision needs: No Physical Exam ED Exam Exam: Patient looks well not toxic appearing Vital Signs: Vital Signs - 24 hr 10/31/24 16:23 10/31/24 18:03 10/31/24 20:08 Temperature 96.8 F 97.8 F 98.5 F Pulse Rate 94 88 84 Respiratory Rate 20 18 14 Blood Pressure 164/93 H 134/80 132/86 Pulse Oximetry 100 98 98 Oxygen Delivery Method Room Air Room Air Room Air 10/31/24 21:57 10/31/24 22:37 Temperature 98.3 F 98.3 F Pulse Rate 97 86 Respiratory Rate 14 14 Blood Pressure 137/82 129/70 Pulse Oximetry 99 99 Oxygen Delivery Method Room Air Room Air BMI result Body Mass Index 24.3 Const General: cooperative Nutritional Appearance: average body habitus Orientation/consciousness: patient oriented x3 Limitations: no limitations HENMT Head: Yes normal to inspection General nose exam: Normal external nose present Face and sinus: Yes normal facial exam Neck Neck: Yes normal visual inspection and Yes full ROM Resp Effort & Inspection: normal respiratory effort Auscultation: clear to auscultation bilaterally Cardio Jugular venous distension: no JVD Rate: regular rate Rhythm: regular rhythm GI Inspection: Yes normal to inspection Palpation (GI): Soft to palpation, not firm and nontender Auscultation: normal bowel sounds Skin General skin exam: no rashes or lesions noted and elasticity normal Lesions: no lesions Rashes: no rashes Neuro Other: Examination shows normal cranial nerves, normal [id number] no ataxia no nystagmus negative skew test General: patient oriented x3 Extrem General: Yes normal to inspection and Yes full ROM Course Course Course Narrative: This is a Rapid Medical Examination (RME) performed by Mónica Barkley PA-C in triage. Full HPI, ROS, assessment and treatment plan per primary provider in the Main ED. Hx: 54 yo F here for eval of tingling to entire body, nausea, and motion sickness feeling which began earlier while walking into [employer]. reports history of similar 2 weeks ago, was correlating this to recently starting mag oxide and vit b2 for migraines. reports pulse of 51 when she laid down to rest earlier which normalized when she stood up and walked around. feels generally unwell at present. PE/vitals: pulse 93 bpm. ambulating w/ steady gait. Plan: labs, ekg Reevaluation(s) Reevaluation #1: On re-examination the patient is feeling much better workup essentially negative blood pressure now is 132/86 I think she can be discharged home she is comfortable with the plan of care Time: 20:44 Reevaluation #2: Workup completed now CTA head and neck negative, gait is stable ,neuro exam is normal [id number] and no nystagmus, I think she can be discharged home she is comfortable with the plan Time: 22:14 Medications Administered Discontinued Medications Generic Name Dose Route Start Last Admin Trade Name Freq PRN Reason Stop Dose Admin Diazepam 2 mg 10/31/24 21:03 10/31/24 21:10 Diazepam 2 Mg Tablet PO 10/31/24 21:04 2 mg ONCE ONE Administration Diphenhydramine HCl 25 mg 10/31/24 19:00 10/31/24 19:06 Diphenhydramine Hcl 50 Mg/Ml Vial IVPUSH 10/31/24 19:01 25 mg ONCE ONE Administration Sodium Chloride 1,000 mls @ 999 mls/hr 10/31/24 17:45 10/31/24 19:06 Ns IVCONT 10/31/24 18:45 Infused .Q1H1M YANELIS Infusion Iohexol 75 ml 10/31/24 18:35 10/31/24 18:37 Iohexol 350 Mg/Ml 100 Ml Infus..Btl IV 10/31/24 18:36 75 ml ONCE ONE Administration Meclizine HCl 25 mg 10/31/24 17:39 10/31/24 17:59 Meclizine Hcl 25 Mg Tablet PO 10/31/24 17:40 25 mg ONCE ONE Administration Metoclopramide HCl 10 mg 10/31/24 19:00 10/31/24 19:06 Metoclopramide Hcl 10 Mg/2 Ml Vial IVPUSH 10/31/24 19:01 10 mg ONCE ONE Administration Ondansetron HCl 4 mg 10/31/24 17:40 10/31/24 17:59 Ondansetron Hcl 4 Mg/2 Ml Vial IVPUSH 10/31/24 17:41 4 mg ONCE ONE Administration Medical Decision Making Medical Decision Making MDM Narrative: Patient is here with nausea and vomiting with dizziness we will obtain labs imaging and reassess. The neuro exam is normal [id number] is normal no ataxia I think this dizziness is peripheral no consistent with a cerebellar stroke 22:14 she is feeling better gait is stable no nausea no vomiting at this point I think she can be discharged home I really thinks this is a peripheral vertigo Differential Diagnosis Differential Diagnoses: The differential diagnosis associated with the presentation includes Vertigo/viral syndrome/cerebellar stroke Admission/Observation Consideration of admission/observation: Escalation of care including admission/observation considered Lab Data [facility] Lab Attestation statement: I reviewed the patient's lab results. 10/31/24 16:55 10/31/24 16:55 Labs: Lab Results 10/31/24 Range/Units 16:55 WBC 6.7 (4.8-10.8) X10*3/uL RBC 4.18 L (4.20-5.50) X10*6/uL Hgb 12.6 (12.0-16.0) g/dl Hct 35.9 L (37.0-47.0) % MCV 85.9 (80.0-98.0) fL MCH 30.1 (27.0-33.0) pg MCHC 35.1 H (31.0-35.0) g/dl RDW 12.9 (11.0-16.0) % Plt Count 186 (160-400) X10*3/uL MPV 10.6 (9.4-12.3) fL Immature Gran % (Auto) 0.3 (0.0-0.4) % Neut % (Auto) 63.1 (45-73) % Lymph % (Auto) 27.0 (20-40) % Cottle % (Auto) 8.3 (2-11) % Eos % (Auto) 0.9 (0-4) % Baso % (Auto) 0.4 (0-2) % Lymph # (Auto) 1.8 (1.2-4.9) X10*3/uL Cottle # (Auto) 0.6 (0.1-1.2) X10*3/uL Eos # (Auto) 0.1 (0.0-0.4) X10*3/uL Baso # (Auto) 0.0 (0.0-0.2) X10*3/uL Abs Immat Gran (auto) 0.02 (0.00-0.03) X10*3/uL Absolute Neuts (auto) 4.2 (2.0-8.3) x10*3/uL Absolute Nucleated RBC 0.000 (0.0-0.012) X10*3/uL Nucleated RBC % (auto) 0.0 (0.0-0.2) /100WBC Sodium 140 (135-145) mmol/L Potassium 3.6 (3.3-5.1) mmol/L Chloride 107 (96-108) mmol/L Carbon Dioxide 24 (22-29) mmol/L Anion Gap 13 (12-20) BUN 21 H (9-16) mg/dL Creatinine 1.05 (0.5-1.4) mg/dL Estim Creat Clear Calc 50.7 Estimated GFR 55 Random Glucose 137 H (60-115) mg/dL Calcium 8.9 (8.4-10.2) mg/dL Magnesium 2.1 (1.6-2.6) mg/dL Total Bilirubin 0.2 (0.0-1.0) mg/dL AST 21 (5-31) U/L ALT 19 (0-31) U/L Alkaline Phosphatase 74 (39-117) U/L Troponin I High Sens < 2.7 (<3.5-17.0) ng/L Total Protein 7.0 (6.5-8.0) g/dL Albumin 4.5 (3.5-5.0) g/dL Lipase 43 (8-78) U/L Independent Interpretation I performed an independent interpretation of an: EKG and CT Scan (Not acute disease) Interpretation: EKG shows normal sinus rhythm no ST-T changes rate 83 no ischemic Radiology Impression Discussion of test interpretation with radiology: I have reviewed the radiologist's reading. Radiologist Impression: DLP: 646 mGy-cm FINDINGS: There is no evidence of acute intracranial hemorrhage or territorial infarction. No abnormal mass effect or midline shift is seen. Mack to white matter differentiation is well preserved. No extra-axial fluid collections are identified. The ventricles are normal in size. There is no abnormal attenuation within the brain parenchyma. The osseous structures and soft tissues are normal. The mastoid air cells and visualized portions of the paranasal sinuses are well aerated. CT/CT head/brain wo IV con IMPRESSION: No acute intracranial pathology. Dictated By: Yodit Sky Discharge Plan Discharge Clinical Impression: Dizziness Patient Disposition: Home, Self-Care Instructions: Vertigo (DC), Dizziness (ED) Additional Instructions: Please follow-up with your primary care physician on Saturday, return to the emergency room if you worse any concern Prescriptions: New meclizine 25 mg tablet 25 mg PO TID PRN (Reason: dizziness) Qty: 15 0RF ondansetron 4 mg tablet,disintegrating 4 mg PO Q8H 4 Days Qty: 12 0RF No Action cholecalciferol (vitamin D3) 25 mcg (1,000 unit) capsule 25 mcg PO DAILY zolmitriptan 5 mg tablet 5 mg PO Q2H PRN (Reason: migraine headache) Qty: 90 3RF Rx Instructions: Max 2 tabs/24 hours ciprofloxacin HCl 500 mg tablet 500 mg PO ONCE Qty: 1 0RF naproxen 500 mg tablet 500 mg PO ONCE PRN (Reason: pain) Qty: 1 0RF lidocaine HCl 2 % jelly in applicator 10 ml intra-urethral ONCE Qty: 10 0RF magnesium oxide 400 mg magnesium tablet 400 mg PO DAILY riboflavin (vitamin B2) 400 mg tablet 400 mg PO DAILY Referrals: Veronica Ordaz MD [Primary Care Provider, Endocrinology] - 11/02/24 Interventions: ED Discharge Assessment Last Done: 10/31/24 22:37 Discharge Date/Time: 10/31/24 22:38 Print Language: Trinidadian
--- NOTE | 2024-10-31 16:27 | ECG_ITS ---
Test Reason : light headed Blood Pressure : */* mmHG Vent. Rate : 83 BPM Atrial Rate : 83 BPM P-R Int : 142 ms QRS Dur : 68 ms QT Int : 406 ms P-R-T Axes : 67 25 26 degrees QTcB Int : 477 ms Normal sinus rhythm Possible Left atrial enlargement Nonspecific ST abnormality Abnormal ECG When compared with ECG of 30-Jul-2023 13:18, No significant change was found Referred By: Rosy Barkley Electronically Signed By: MONET GILBERT MD
[2024-10-31 17:01] LABS: MANUAL DIFF FLAG NO
[2024-10-31 17:02] LABS: Hematocrit 35.9 % (37.0-47.0); Hemoglobin 12.6 g/dl (12.0-16.0); Imm Gran Abs Auto 0.02 X10*3/uL (0.00-0.03); Imm Gran Pct Auto 0.3 % (0.0-0.4); Lymphocytes Absolute Auto 1.8 X10*3/uL (1.2-4.9); Mean Corpuscular HGB Conc 35.1 g/dl (31.0-35.0); Mean Corpuscular Hemoglobin 30.1 pg (27.0-33.0); Mean Corpuscular Volume 85.9 fL (80.0-98.0); NRBC Abs Auto 0.000 X10*3/uL (0.0-0.012); NRBC Pct Auto 0.0 /100WBC (0.0-0.2); Platelet Count 186 X10*3/uL (160-400); Red Blood Count 4.18 X10*6/uL (4.20-5.50); White Blood Count 6.7 X10*3/uL (4.8-10.8)
[2024-10-31 17:31] LABS: Alanine Aminotransferase 19 U/L (0-31); Albumin Level 4.5 g/dL (3.5-5.0); Alkaline Phosphatase 74 U/L (39-117); Anion Gap 13 (12-20); Aspartate Amino Transferase 21 U/L (5-31); Blood Urea Nitrogen 21 mg/dL (9-16); Calcium 8.9 mg/dL (8.4-10.2); Carbon Dioxide 24 mmol/L (22-29); Chloride 107 mmol/L (96-108); Creatinine Clr Calc Pharmacy 50.7; Estimated Glomerular Filt Rate 55; Lipase 43 U/L (8-78); Magnesium 2.1 mg/dL (1.6-2.6); Potassium 3.6 mmol/L (3.3-5.1); Sodium 140 mmol/L (135-145); Total Protein 7.0 g/dL (6.5-8.0)
--- OUTSIDE RECORDS SUMMARY | 2024-10-31 17:31 | XMS_ITS | Clinical Summary ---
Author Organization [facility] Facility Address [address] [address] Care Team Providers Care Patternator Name Role Phone Veronica Ordaz MD Primary Care Provider [phone] Allergies No known active allergies Medications ZOLMitriptan [...] Gastroparesis 07/13/2021 10/30/2022 Overview (10/30/2022): 06/06/2021 visit [facility] 06/06/2021 visit [facility] Diverticular disease 07/13/2021 10/30/2022 Menstrual migraine [...] of breast 0 08/04/2010 10/30/2022 Overview (10/30/2022): [facility] [place] [place] Immunizations Immunization Administration Dates Next Due Influenza, [...] Colorectal Cancer Screening: Sigmoidoscopy 05/30/2019 Influenza Vaccine (#1) 2024 2, 05/17/2021, 12/22/2018, Additional history exists Insurance Care Teams Patternator Relationship Specialty Start Date End Date Veronica Ordaz MD [address] [place] [address] PCP - General Internal Medicine 05/09/22
--- OUTSIDE RECORDS SUMMARY | 2024-10-31 17:31 | XMS_ITS | Clinical Summary ---
Author Organization 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 Name Role Phone Unavailable Primary Care Provider Unavailabl e Surgical History Surgery Date Site/Laterality Comments APPENDECTOMY age 6 PROCEDURE: HISTORICAL APPENDECTOMY; COMMENT: Slow waking up form anethesia OTHER SURGICAL HISTORY PROCEDURE: IN RPR UMBILICAL HERNIA < 5 YRS REDUCIBLE; COMMENT: Umbilical herrnia - HERNIA REPAIR PROCEDURE: IN REPAIR FIRST ABDOMINAL WALL HERNIA OTHER SURGICAL HISTORY 02/25/2010 PROCEDURE: ARTHROSCOPY PROCEDURE NEC; COMMENT: hip surgery ligament repair Mar 2010 CHOLECYSTECTOMY 02/10/2021 PROCEDURE: HISTORICAL CHOLECYSTECTOMY; COMMENT: Pt reports COLONOSCOPY 12/2020 PROCEDURE: HISTORICAL COLONOSCOPY; COMMENT: Per pt, diverticulosis ESOPHAGOGASTRODUODENOSCOPY 12/2020 PROCEDURE: IN ESOPHAGOGASTRODUODENOSCOPY TRANSORAL DIAGNOSTIC; COMMENT: Per pt, irritation in the stomach. 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; COMMENT: Loss of voice Closed fracture of one rib DX:Cl osed fracture of one rib Hypercholesterolemia 06/30/2014 DX:Hypercho lesterolemia Gastroparesis 07/13/2021 DX:Gastroparesis ; COMMENT: 06/06/2021 visit [facility] Family history of breast cancer 08/04/2010 DX:Family history of breast cancer; COMMENT: MGM Gastritis 12/15/2020 DX:Gastritis Menstrual migraine without s tatus migrainosus, not intractable 01/24/2021 DX:Menstrual migraine wit hout status migrainosus, not intractable Premenstrual symptom 10/25/2020 DX:Premenst rual symptom Right ovarian cyst 01/24/2021 DX:Right ovar peggy cyst Vitamin D deficiency 08/14/2018 DX:Vitamin D deficiency Diverticulosis 07/13/2021 DX:Diverticulosi s Family History Medical History Relation Name Comments Other: ovarian tumor Daughter 1 precanc erous tumor Arthritis Father knee & hip Hypertension Father Other cancer Father facial skin can cer Breast cancer Maternal Grandmother 60+ MGM Hypertension Mother Other: gall bladder Mother Thyroid disease Mother hyperactive Breast cancer Other m aunt 70s Other: bone cancer Uncle Colon cancer Neg Hx Ovarian cancer Neg Hx Uterine cancer Neg Hx Relation Name Status Comments Brother 1 Alive healhty Brother 2 Alive healthy Brother 3 Alive HTN, Chol Daughter 1 Alive healthy Daughter 2 Alive healhty Father Alive HTN, skin cance r Maternal Grandfather (Age 82) [place] Maternal Grandmother 60+ (Age 85) tate ng failure and [place] Mother Alive GB out, cholest fabien, thyroid resection for hyperthyroidism Other m aunt 70s Alive Paternal Grandfather (Age ?) [place] Paternal Grandmother (Age ?) [place] Uncle Social History Tobacco Use Types Packs/Day Years Used Date Smoking Tobacco: Never Smokeless Tobacco: Never Alcohol Use Standard Drinks/Week Comments Not Currently 0.8 (1 standard drink = 0.6 oz p ure alcohol) Comments Unknown Sex and Gender Information Value Date Recorded Sex Assigned at Not on file Legal Sex Female 6:20 AM EST Gender Identity Not on file Sexual Orientation Not on file Obstetrics History Last Filed Vital Signs Vital Sign Reading Time Taken Comments Blood Pressure 120/80 06/04/2023 2:35 PM EDT Pulse 86 06/04/2023 2:35 PM EDT Temperature - - Respiratory Rate - - Oxygen Saturation - - Inhaled Oxygen Concentration - - Weight 63.1 kg (139 lb 3.2 oz) 06/04/2023 2:35 P M EDT Height 162.6 cm (5' 4 ) 06/04/2023 2:35 PM EDT Body Mass Index 23.89 06/04/2023 2:35 PM EDT Plan of Treatment Upcoming Encounters Date Type Department Care Team (Late st Contact Info) Description 11/13/2024 3:30 PM EDT Appointment Radiology Department [address] [place] [phone] Health Maintenance Due Date Last Done Comments Hepatitis B Vaccines (1 of 3 - 19+ 3-dose series) 1989 Cervical Cancer Screening: HPV 05/30/1991 Pneumococcal Vaccine: 50+ Years (1 of 1 - PCV) 2020 Zoster Vaccines (1 of 2) 2020 06/26/2016, 10/27 Cholesterol Screening (Lipid Panel) 02/03/2022 Colorectal Cancer Screening: Colonoscopy 02/03/2022 HIV Screening 02/03/2022 Hepatitis C Screening 02/03/2022 Social Influencers of Health Screening 02/03/2022 DTaP,Tdap,and Td Vaccines (3 - Td or Tdap) 05/01/2022 05/01/2012, 12/27/2005 Depression Screening 02/26/2024 COVID-19 Vaccine ( season) 2024 11/25/2020, 05/27/2020, 05/06/2020 Influenza Vaccine (#1) 2024 , 12/22/2018, 04/25/2018, Additional history exists Breast Cancer Screening 11/07/2025 11/08/19 24, 11/08/2023, 11/22/2022, Additional history exists Varicella Vaccines Aged Out 06/26/2016, 11/23/2010 No longer eligible based on patient's age to complete this topic HIB Vaccines Aged Out No longer eligi ble based on patient's age to complete this topic HPV Vaccines Aged Out No longer eligi ble based on patient's age to complete this topic Hepatitis A Vaccines Aged Out No long er eligible based on patient's age to complete this topic IPV Vaccines Aged Out No longer eligi ble based on patient's age to complete this topic MMR Vaccines Aged Out No longer eligi ble based on patient's age to complete this topic Meningococcal ACWY Vaccine Aged Out N o longer eligible based on patient's age to complete this topic Meningococcal B Vaccine Aged Out No l onger eligible based on patient's age to complete this topic RSV Immunization Patients Under 20 months Aged Out No longer eligible based on patient's age to complete this topic Procedures Procedure Name Priority Date/Time Associated Diagnosis Comments SCREENING MAMMOGRAPHY BI 2-VIEW BREAST INC CAD Routine 11/08/2023 3:27 PM EDT Encounter for screening mammogram for malignant neoplasm of breast from Last 3 Months or Most Recently Relevant to Health Maintenance Results * SCREENING MAMMOGRAPHY BI 2-VIEW BREAST INC CAD (11/08/2023 3:27 PM EDT) Anatomical Region Laterality Modality Radiographic Sisi ging 11/05/2022 3:11 PM EDT Narrative 11/11/2023 12:31 PM EDT This is a summary report. The complete report is available in the patient's medical record. If you cannot access the medical record, please contact the sending organization for a detailed fax or copy. BILATERAL 3D DIGITAL SCREENING MAMMOGRAM History: Routine screening. No current breast complaints. Family history of breast cancer in grandmother Comparison: Multiple priors dating back to 07/06/2020 Technique: Bilateral full-field digital 3D mammography was performed using standard CC and MLO projections, bilateral exaggerated cc views CAD was used to evaluate this mammogram. Findings: Density: The breasts are heterogeneously dense which may obscure small masses-C RIGHT: No suspicious masses, groups of microcalcification or areas of architectural distortion identified. Stable typically benign parenchymal asymmetries LEFT: No suspicious masses, groups of microcalcifications or areas of architectural distortion identified. Stable typically benign parenchymal asymmetries IMPRESSION: : 1. No mammographic evidence of malignancy. BI-RADS Category 2 benign findings Recommendation: Routine annual screening mammography is recommended [facility] [address] [address] Procedure Note Don Fuller MD - 12/11/2023 This is a summary report. The complete report is available in thepatient's medical record. If you cannot access the medical record, pleasecontact the sending organization for a detailed fax or copy. BILATERAL 3D DIGITAL SCREENING MAMMOGRAM History: Routine screening. No current breast complaints. Family historyof breast cancer in grandmother Comparison: Multiple priors dating back to 07/06/2020 Technique: Bilateral full-field digital 3D mammography was performed usingstandard CC and MLO projections, bilateral exaggerated cc views CAD was used to evaluate this mammogram. Findings: Density: The breasts are heterogeneously dense which may obscure smallmasses-C RIGHT: No suspicious masses, groups of microcalcification or areas ofarchitectural distortion identified. Stable typically benign parenchymalasymmetries LEFT: No suspicious masses, groups of microcalcifications or areas ofarchitectural distortion identified. Stable typically benign parenchymalasymmetries IMPRESSION: : 1. No mammographic evidence of malignancy. BI-RADS Category 2 benign findings Recommendation: Routine annual screening mammography is recommended [facility] [address] [id number] Jasmyne Shelton MD IMG XR PROCEDURES Final Res ult from Last 3 Months or Most Recently Relevant to Health Maintenance [place] [address] [place] [address]
--- OUTSIDE RECORDS SUMMARY | 2024-10-31 17:31 | XMS_ITS | Clinical Summary ---
Author Organization [facility] Address [address] [place] [id number] Phone Care Team Providers Care Meat Boner And Slicer Name Role Phone Veronica Lam MD Primary Care Provider + [phone] Allergies No known active allergies Medications cholecalciferol (VITAMIN D3) 25 MCG (1,000 unit) tablet Take 1 tablet by mouth daily. 05/17/2021 Active butalbital-acet aminophen (PHRENILIN) 50-325 mg Tab Take 1 tablet by mouth every 4 (four) hours as needed. Active ZOLMitriptan (ZOMIG) 5 MG tablet Take 1/2 to 1 prn migraine headache. May repeat in 4 hrs. Limit 10 mg/24 hr. 12 tablet 5 06/17/2024 Active Active Problems Problem Noted Date Diagnosed Date Stage 3a chronic kidney disease 10/30/2022 Diverticulosis 07/13/2021 Gastroparesis 07/13/2021 Overview (01/31/2022): 06/06/2021 visit [facility] Menstrual migraine without s tatus migrainosus, not intractable 01/24/2021 Overview (01/31/2022): Last Assessment & Plan: Will change OCP to continuous use to avoid hormonally mediated migraines. She will follow up prn. Warned re: possible BTB. Gastritis 12/15/2020 Premenstrual symptom 10/25/2020 Overview (01/31/2022): Last Assessment & Plan: I counseled her [...] in 3 months. Vitamin D deficiency 08/14/2018 Hypercholesterolemia 06/30/2014 Immunizations No known immunizations Social History Tobacco Use Types Packs/Day Years Used Date Smoking Tobacco: Never Smokeless Tobacco: Never Tobacco Cessation:Counseling Given: Not Answered Education Answer Date Recorded Are you interested in more education? Not on nikia e 07/07/2022 Are you concerned about learning? Not on file 07/07/2022 No 07/07/2022 No 07/07/2022 Digital Access Answer Date Recorded No 07/23/2022 No 07/23/2022 Reliable internet access at home? Not on file 07/23/2022 Device with a working camera? Not on file Comments Unknown Sex and Gender Information Value Date Recorded Sex Assigned at Not on file Legal Sex Female 7:05 PM EST Gender Identity Not on file Sexual Orientation Not on file Last Filed Vital Signs Vital Sign Reading Time Taken Comments Blood Pressure 129/76 06/17/2024 10:15 AM EDT Pulse 99 06/17/2024 10:15 AM EDT Temperature 36.4 C (97.5 F) 06/17/2024 10:15 AM EDT Respiratory Rate 18 04/09/2024 3:48 PM EST Oxygen Saturation 100% 06/17/2024 10:15 AM EDT Inhaled Oxygen Concentration - - Weight 59.9 kg (132 lb) 06/17/2024 10:15 AM EDT Height 162.6 cm (5' 4 ) 06/17/2024 10:15 AM EDT Body Mass Index 22.66 06/17/2024 10:15 AM EDT Plan of Treatment Upcoming Encounters Date Type Department Care Team (Late st Contact Info) Description 04/07/2025 2:00 PM EST Office Visit [facility] Neurology at [place] [address] [facility] [address] [place] [address] Meño Vital MD [facility] [place] [address] [email or web address] Health Maintenance Due Date Last Done Comments LIPID PANEL 1970 HEPATITIS C SCREENING 1988 HIV ONE-TIME SCREENING (18-65 YEARS) 1988 COLOGUARD 05/30/2015 COLONOSCOPY 05/30/2015 COLORECTAL CANCER SCREENING 05/30/2015 FIT TEST 05/30/2015 FOBT 05/30/2015 SIGMOIDOSCOPY 05/30/2015 VIRTUAL COLONOSCOPY 05/30/2015 PNEUMOCOCCAL VACCINES (50+ years) (1 of 1 - PCV) 2020 ZOSTER VACCINES (1 of 2) 2020 Adult Td,Tdap Booster 05/01/2022 05/01/2012, 006 COVID-19 VACCINE ( season) 2023 12/25/2021, 12/26/2020, 11/25/2020, Additional history exists INFLUENZA VACCINE (#1) 2024 , 12/25/2021, 05/17/2021, Additional history exists PAP SMEAR 02/06/2025 02/06/2022 DEPRESSION SCREENING 06/10/2025 06/10/2024 MAMMOGRAM 11/07/2025 11/08/2023, 11/01/2021 SMOKING STATUS SCREENING (Once After 26 Yrs) Completed 01/03/2024 HEPATITIS A VACCINES Aged Out No long er eligible based on patient's age to complete this topic HIB VACCINES Aged Out No longer eligi ble based on patient's age to complete this topic MENINGOCOCCAL VACCINES (ACWY) Aged Out No longer eligible based on patient's age to complete this topic MENINGOCOCCAL VACCINES (B) Aged Out N o longer eligible based on patient's age to complete this topic Medical Devices Not on file [place] [address] [address] [place] [address] Member Subscriber Plan / Payer (Ef fective 2011-Present) Name:Natividad Chun Relation to Subscriber:Self Name:Natividad Chun Payer ID:[id number] (NAIC) Type:HMO Address: [address] [place], [place] Member Subscriber Plan / Payer (Ef fective 2011-Present) Name:Natividad Chun Relation to Subscriber:Self Name:Natividad Chun Payer ID:[id number] (NAIC) Type:HMO Address: [address] [place], [place] Member Subscriber Plan / Payer (Ef fective 2011-Present) Name:Natividad Chun Relation to Subscriber:Self Name:Natividad Chun Payer ID:[id number] (NAIC) Type:HMO Address: [address] [place], [place] [facility] Member Subscriber Plan / Payer ( fective 2011-Present) Name:Natividad Chun Relation to Subscriber:Self Name:Natividad Chun Payer ID:[id number] (NAIC) Type:HMO Address: [address] [place], [place] [address] [place] [address] Care Teams Meat Boner And Slicer Relationship Specialty Start Date End Date Veronica Lam MD PCP - General Internal Medicine 01/31/22 Additional Source Comments The information contained in this document represents components of the legal health record. It is not the complete legal health record.[facility]
[2024-10-31 17:43] LABS: Troponin-I High Sensitivity < 2.7 ng/L (<3.5-17.0)
[2024-10-31 18:03] VITALS: BP 134/80; PULSE 88; RESP 18; TEMP 36.6; O2SAT 98
[2024-10-31] MEDS: iohexoL 350 MG/ML 100 ML INFUS..BTL 75 ML IV (18:37)
--- NOTE | 2024-10-31 19:13 | PC.NURSE ---
Assumed care of this patient at 1900, patient c/o worsening symptoms endorsing vague nausea/dizziness. Provider aware additional meds ordered. Patient able to walk w/ SB assist to BR. Lyme titer added on. Patient placed on monitor, noted to be mildly tachycardic ST 100's on monitor.
[2024-10-31 20:08] VITALS: BP 132/86; PULSE 84; RESP 14; TEMP 36.9; O2SAT 98
[2024-10-31 21:57] VITALS: BP 137/82; PULSE 97; RESP 14; TEMP 36.8; O2SAT 99
[2024-10-31 22:37] VITALS: BP 129/70; PULSE 86; RESP 14; TEMP 36.8; O2SAT 99
[2024-11-04 06:28] LABS: Lyme Abs Screen <0.90 index
== END 2024-10-31 22:38 | disposition home or self-care (01) ==
PROVIDERS: Physician Assistant Medical; Emergency Provider Emergency Medicine; PCP Internal Medicine
DX: R42 Dizziness and giddiness (principal); R11.2 Nausea with vomiting, unspecified; R94.31 Abnormal electrocardiogram [ECG] [EKG]; T75.3XXA Motion sickness, initial encounter; Y93.9 Activity, unspecified; Y99.9 Unspecified external cause status; Z79.899 Other long term (current) drug therapy
CPT/HCPCS: 36415; 70496; 70498; 80053; 83690; 83735; 84484; 85025; 86617; 86618; 93005; 96361; 96374; 96375; 99285; J1200; J2405; J2765; Q9967

== ENCOUNTER → 2024-10-31 16:27 | Outpatient (BNV) | payer BC, SELFPAY | PROVIDERS: Emergency Provider Emergency Medicine; PCP Internal Medicine; Visit Provider Internal Medicine Cardiovascular Disease | DX: R94.31 Abnormal electrocardiogram [ECG] [EKG] (principal); R42 Dizziness and giddiness | CPT/HCPCS: 93010 ==

== ENCOUNTER → 2024-10-31 17:41 | Outpatient (BNV) | payer BC, SELFPAY | PROVIDERS: Emergency Provider Emergency Medicine; PCP Internal Medicine; Visit Provider Radiology Diagnostic Radiology | DX: R42 Dizziness and giddiness (principal) | CPT/HCPCS: 70496; 70498 ==

== ENCOUNTER 2024-11-12 12:20 | Outpatient (REF) | payer BC, SELFPAY ==
--- OUTSIDE RECORDS SUMMARY | 2024-11-12 15:28 | XMS_ITS ---
Author Name [facility] Organization Unknown Care Team Organization Name Specialty Phone Email Start Date End Da teresa [facility] Jess Mckeon Primary [facility] 01/02/2022 4
[2024-11-12 18:13] LABS: Appearance Urine Clear; Glucose Urine UA Negative (Negative); PH 7.0 (5.0-9.0); Specific Gravity - Urine <= 1.005 (1.005-1.025)
== END 2024-11-12 12:21 | disposition home or self-care (01) ==
LOC: HO.WFDLDS 12:20
PROVIDERS: PCP Internal Medicine; Visit Provider Physician Assistant
DX: R30.0 Dysuria (principal); R42 Dizziness and giddiness
CPT/HCPCS: 81003

== ENCOUNTER 2024-11-12 12:20 | Outpatient (AMB) | payer BC, SELFPAY ==
--- NOTE | 2024-11-12 12:38 | MHC.PC.OV ---
Vital Signs 11/12/24 12:40 Height 5 ft 3 in Weight 139 lb 8 oz BMI 24.7 BP 100/74 Blood Pressure Location Lt brachial Position Sitting Respiration 12 Pulse 98 Pulse Source Pulse Oximeter Temp 98.6 F Temp Source Oral Pulse Oximetry (%) 98 Oxygen Delivery Method Room Air Intake Visit Reasons[place] [facility] [place] Note: Emergency room follow up. Urinary discomfort. [employer] Required: No Allergies No Known Allergies Allergy (Verified 11/12/24 12:38) Medication List - Last Reconciled 11/12/24 by Parisa Chahal PA-C cholecalciferol (vitamin D3) 25 mcg PO DAILY ergocalciferol (vitamin D2) PO magnesium oxide 400 mg PO DAILY magnesium oxide PO meclizine 25 mg PO TID PRN ondansetron 4 mg PO Q8H 4 days riboflavin (vitamin B2) 400 mg PO DAILY zolmitriptan 5 mg PO Q2H PRN Tobacco use date assessed: 11/12/24 Dental Screening Dental Screen Date: 11/12/24 Did you have a dental visit in the last 12 months?: Yes Did you have a dental problem in the last 6 months where you did not have access to dental care?: No Was dental information given to patient?: Patient has dentist HPI [place] [facility] [place] Details Patient is a 54-year-old female with a significant past medical history of migraines presenting today for an ER follow up. She was recently seen [place] [facility] [place] with complaints of dizziness. Patient states that she was walking around [place] is when she started to feel almost off balance and dizzy. She states she could walk but she felt unsteady but no real spinning. She did not feel lightheaded. She states it was almost like she was on a roller coaster ride and then had to try to catch her bearings. She did not follow her. She did not have any associated headaches. She has vision changes at baseline when she is fatigued. She states that when she is tired she will start to experience double vision in the left eye is worse than the right. She has seen ophthalmology and was told that her lids get tired. She says that this felt at baseline. She did not have associated chest pain, palpitations or shortness on breath but did notice that her heart rate was around 50. She would go to the ER and was there for about 8 hours. She says it took a long time until she felt better. She also was at the same time experiencing a tingling sensation in her arms and she just felt weak with her hands. She states that sometimes at baseline she has a hard time opening up jars and has gotten weaker but has attributed this to arthritis in her hands. Since the ER she has had reoccurrence of symptoms a couple times. The symptoms seemed to last about 1-2 hours. She did have a CTA of the head and neck which were WNL. She had an EKG at the time which was reassuring. Her labs were reassuring. She follows with Neurology at [facility] for her migraines. No fever, chills, recent illness, sinus pain or pressure, congestion. 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 Current occupational exposures/hazards: No Cognitive needs: No Hearing needs: No Vision needs: No Questionnaire Thrive Questionnaire Date Thrive assessed: 03/03/24 I am a: Patient What is your living situation today?: I have a steady place to live Within the past 12 months, did the food you bought not last and you didn't have the money to get more?: Never true Within the past 12 months, did you worry whether your food would run out before you got money to buy more?: Never true Do you have trouble paying for medicines?: No Do you have trouble getting transportation to medical appointments?: No Do you have trouble paying your heating and electricity bill?: No Do you have trouble taking care of your child, family member or friend?: No Do you have trouble with day-to-day activities such as bathing, preparing meals, shopping, managing finances, etc.?: No Are you currently unemployed and looking for a job?: No Are you interested in more education?: No Please select the resources that you would like help with: None Currently or been in a relationship where the following occur: No concerns reported THRIVE Score: 0 AUDIT C Alcohol Use Questionnaire (AUDIT-C) 1. How often do you have a drink containing alcohol?: Monthly or less 2. How many drinks containing alcohol do you have on a typical day when you are drinking?: 1 or 2 3. How often do you have six or more drinks on one occasion?: Never Total Score: 1 ANA-7 AMB Questionnaire ANA-7 Date ANA - 7 assessed: 08/05/23 Source: Developed by Drs. Paul Webb, Marycarmen New, Klever Riley and colleagues, with an educational som from [employer]. Physical exam (Primary Care) Vital Signs: Last Vital Signs Temp 98.6 F 11/12/24 12:40 Pulse 98 11/12/24 12:40 Resp 12 11/12/24 12:40 BP 100/74 11/12/24 12:40 Pulse Ox 98 11/12/24 12:40 Oxygen Delivery Method Room Air 11/12/24 12:40 BMI result Body Mass Index 24.7 Tobacco/Smoking Status: Tobacco use Status Tobacco use date assessed 11/12/24 11/12/24 12:42 Patient Tobacco Use Status Never used Tobacco 11/12/24 12:42 e-Cigarette/Vaping Use Never Used 11/12/24 12:42 Thrive Assessment: Date of Thrive Assessment Date Thrive assessed 03/03/24 11/12/24 12:42 Currently or been in a relationship where the following occur: No concerns reported Const Orientation/consciousness: patient oriented x3 HENMT Ears: hearing grossly normal bilaterally Neck Thyroid: Thyroid normal Lymphatic: no lymphadenopathy noted Resp Auscultation: clear to auscultation bilaterally Cardio Rate: regular rate Rhythm: regular rhythm Heart sounds: S1 normal heart sound present and S2 normal heart sound present GI Inspection: Yes normal to inspection Palpation (GI): Soft to palpation and Other GI palpation findings present (nontender, no cva tenderness) Auscultation: normoactive bowel sounds Rectal Exam - Female: deferred Skin General skin exam: no rashes or lesions noted Neuro General: patient oriented x3, gait normal, no focal motor deficits, CN's II-XI intact bilaterally, normal sensation to monofilament and deep tendon reflexes 2+ bilaterally Motor exam (neuro): 5/5 motor strength present throughout Coordination: Romberg test negative Coding Level of Care Code Est Pt Level 4 (47631) Complex EM visit Add On G2211 Diagnoses Dizziness R42 Assessment & Plan Assessment & Plan (1) Dizziness: Code(s): R42 - Dizziness and giddiness Category: Medical Plan: Advised to follow up with her neurologist We will do a Holter monitor given she was having episodes of a low heart rate. We will follow up pending test results. Advised to follow up if anything worsens or changes. Patient understands and agrees with the plan. Orders: Orders UA CC w/rflx Micro + Cult 11/12/24 R30.0 - Dysuria ECG 14 day holter monitor 11/12/24 R42 - Dizziness and giddiness
[2024-11-12 12:40] VITALS: BP 100/74; PULSE 98; RESP 12; TEMP 37; O2SAT 98; BMI 24.7
--- OUTSIDE RECORDS SUMMARY | 2024-11-12 14:32 | XMS_ITS | Clinical Summary ---
Author Organization [facility] [address] [place] [address] [place] [phone] Phone Care Team Providers Care Building Surveyor Name Role Phone Unavailable Primary Care Provider Unavailabl e Surgical History Surgery Date Site/Laterality Comments APPENDECTOMY age 6 PROCEDURE: HISTORICAL APPENDECTOMY; COMMENT: Slow waking up form anethesia OTHER SURGICAL HISTORY PROCEDURE: MT RPR UMBILICAL HERNIA < 5 YRS REDUCIBLE; COMMENT: Umbilical herrnia - HERNIA REPAIR PROCEDURE: MT REPAIR FIRST ABDOMINAL WALL HERNIA OTHER SURGICAL HISTORY 02/25/2010 PROCEDURE: ARTHROSCOPY PROCEDURE NEC; COMMENT: hip surgery ligament repair Mar 2010 CHOLECYSTECTOMY 02/10/2021 PROCEDURE: HISTORICAL CHOLECYSTECTOMY; COMMENT: Pt reports COLONOSCOPY 12/2020 PROCEDURE: HISTORICAL COLONOSCOPY; COMMENT: Per pt, diverticulosis ESOPHAGOGASTRODUODENOSCOPY 12/2020 PROCEDURE: MT ESOPHAGOGASTRODUODENOSCOPY TRANSORAL DIAGNOSTIC; COMMENT: Per pt, irritation [...] Gastroparesis 07/13/2021 DX:Gastroparesis ; COMMENT: 06/06/2021 visit [facility] Family history of breast cancer 08/04/2010 [...] skin cance r Maternal Grandfather (Age 82) [place] Maternal Grandmother 60+ (Age 85) tate ng failure and [place] Mother Alive GB out, cholest fabien, thyroid resection for hyperthyroidism Other m aunt 70s Alive Paternal Grandfather (Age ?) [place] Paternal Grandmother (Age ?) [place] Uncle Social [...] 11/13/2024 3:30 PM EDT Appointment Radiology Department [address] [place] [address] Health Maintenance Due Date Last Done Comments [...] 11/08/19 24, 11/08/2023, 11/22/2022, Additional history exists RSV Immunization Adult Patients (1 - 1-dose 75+ series) 2045 Varicella Vaccines Aged Out 06/26/2016, 11/23/2010 No [...] Recommendation: Routine annual screening mammography is recommended [facility] [address] [address] Procedure Note Don Fuller MD - 12/11/2023 [...] Recommendation: Routine annual screening mammography is recommended [facility] [address] [address] Jasmyne Shelton MD IMG XR PROCEDURES Final Res ult from Last 3 Months or Most Recently Relevant to Health Maintenance Insurance [place] [address]
--- OUTSIDE RECORDS SUMMARY | 2024-11-12 14:32 | XMS_ITS | Clinical Summary ---
Author Organization [facility] Address [address] [address] Care Team Providers Care Hardware Engineer Name Role Phone Veronica Ordaz MD Primary Care Provider [phone] Allergies No known active allergies Medications ZOLMitriptan [...] Gastroparesis 07/13/2021 10/30/2022 Overview (10/30/2022): 06/06/2021 visit [facility] 06/06/2021 visit [facility] Diverticular disease 07/13/2021 10/30/2022 Menstrual migraine [...] of breast 0 08/04/2010 10/30/2022 [place]10/30/2022[place] [facility]izations Immunization Administration Dates Next Due Influenza, [...] 12/22/2018, Additional history exists Insurance Care Teams Hardware Engineer Relationship Specialty Start Date End Date Veronica Ordaz MD [address] [place] [address] PCP - General Internal Medicine 05/09/22
--- OUTSIDE RECORDS SUMMARY | 2024-11-12 14:32 | XMS_ITS | Clinical Summary ---
Author Organization [facility] Address [address] [place] [phone] Phone Care Team Providers Care Brass Wind Instrument Maker Name Role Phone Veronica Lam MD Primary Care Provider + [phone] Allergies No known active allergies Medications cholecalciferol [...] 07/13/2021 Gastroparesis 07/13/2021 Overview (01/31/2022): 06/06/2021 visit [facility] Menstrual migraine without s tatus migrainosus, [...] Description 04/07/2025 2:00 PM EST Office Visit [facility] Neurology [facility] [place] [address] [facility] [address] [place] [address] Meño Vital MD [facility] [place] [address] [email or web address] Health Maintenance Due Date Last Done Comments LIPID PANEL 1970 HEPATITIS C SCREENING 1988 HIV ONE-TIME SCREENING (18-65 YEARS) 1988 COLOGUARD 05/30/2015 COLONOSCOPY 05/30/2015 COLORECTAL CANCER SCREENING 05/30/2015 FIT TEST 05/30/2015 FOBT 05/30/2015 SIGMOIDOSCOPY 05/30/2015 VIRTUAL COLONOSCOPY 05/30/2015 PNEUMOCOCCAL VACCINES (50+ years) (1 of 1 - PCV) 2020 ZOSTER VACCINES (1 of 2) 2020 Adult Td,Tdap Booster 05/01/2022 05/01/2012, 006 INFLUENZA VACCINE (#1) 2024 , 12/25/2021, 05/17/2021, Additional history exists COVID-19 VACCINE ( season) 2024 12/25/2021, 12/26/2020, 11/25/2020, Additional history exists PAP SMEAR 02/06/2025 02/06/2022 [...] topic Medical Devices Not on file [place] [address] [place] [address] Member Subscriber Plan / Payer (Ef fective 2011-Present) Name:Natividad Chun Relation to Subscriber:Self Name:Natividad Chun Payer ID:[id number] (NAIC) Type:HMO Address: [address] [place], [place] Member Subscriber Plan / Payer (Ef fective 2011-Present) Name:Natividad Chun Relation to Subscriber:Self Name:Natividad Chun Payer ID:[id number] (NAIC) Type:HMO Address: [address] [place], [place] Member Subscriber Plan / Payer (Ef fective 2011-Present) Name:Natividad Chun Relation to Subscriber:Self Name:Natiivdad Chun Payer ID:[id number] (NAIC) Type:HMO Address: [address] [place], [place] [facility] Member Subscriber Plan / Payer ( fective 2011-Present) Name:Natividad Chun Relation to Subscriber:Self Name:Natividad Chun Payer ID:[id number] (NAIC) Type:HMO Address: [address] [place], [place] [address] [place] [address] Care Teams Brass Wind Instrument Maker Relationship Specialty Start Date End Date Veronica Lam MD PCP - General Internal Medicine 01/31/22 Additional Source Comments The information contained in this document represents components of the legal health record. It is not the complete legal health record.[facility]
== END 2024-11-12 13:10 | disposition home or self-care (01) ==
LOC: HO.HMCFM 12:21
PROVIDERS: PCP Internal Medicine; Visit Provider Physician Assistant
DX: R42 Dizziness and giddiness (principal)

== ENCOUNTER 2024-12-17 14:46 | Outpatient (AMB) | payer BC, SELFPAY ==
--- NOTE | 2024-12-17 14:47 | MHC.OFFVIS ---
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 She had her last mammogram 3 weeks ago.. She does suffer from very bad migraines she was trialed on a medication that she had to taper up the dose to and it did not help but it made her very dizzy and she ended up in the emergency room she has also tried magnesium and vitamin B2 and other modalities and nothing has really worked so far. She was on control pills up until November of 2023 and she stopped them and all medications at that time and effort to deal with her migraines and she got 1 period,. And has not had a period since so it has been a full year with no menses. She had some hot flashes more at the start but they have mostly subsided she is not bothered by vaginal dryness she is active with her and has no concerns about STDs or abnormal discharge. 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 She rides her electric bike in the summer because she lives in [facility] where it is very hilly and she goes to the gym in the winter. She has never had an abnormal Pap in her last Pap was completely negative in 2021 and she was told her next Pap would be due in 2026. 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 Current occupational exposures/hazards: No Cognitive needs: No Hearing needs: No Vision needs: No Female Reproductive History Menstrual Age of Menarche: 13 Total pregnancies: 2 Full term: 2 History of abnormal pap smear: No Date of Mammogram: 11/25/24 (bi rad 1) History of abnormal mammogram: No Physical Exam Vital Signs: Last Vital Signs BP 124/78 12/17/24 14:54 Const General: healthy appearing, comfortable, no acute distress, well developed and alert Nutritional Appearance: average body habitus Orientation/consciousness: patient oriented x3 Limitations: no limitations HEENT Head: Yes normocephalic Neck Neck: Yes normal visual inspection Chest Chest palpation & inspection: normal inspection of the chest Breast/axilla inspection: normal inspection of the breasts and normal inspection of the axillae Breast/axilla palpation: normal palpation of the breasts and normal palpation of the axillae Resp Effort & Inspection: normal respiratory effort GI Inspection: Yes normal to inspection, No Abdominal wall edema and No distended Palpation (GI): Soft to palpation and nontender General: Yes bladder normal to palpation External Female Exam: normal external appearance and normal appearance of the urethra Speculum Exam - Vagina: normal appearance of the vagina, normal palpation and normal vaginal discharge Speculum Exam - Cervix: normal appearance of the cervix, normal palpation and nontender Bimanual exam- vagina & uterus: normal bimanual exam, normal palpation, uterine size normal, bladder normal to palpation, consistency normal, normal palpation, uterine mobility normal, uterine shape normal, No Cervical tenderness present, non-tender and no cervical motion tenderness Bimanual Exam- Adnexa, other: normal adnexae, no masses, normal and No adnexal tenderness Neuro General: patient oriented x3 Assessment & Plan Assessment & Plan (1) Perimenopause: Comment: Just passed 1 year with no menses... Code(s): N95.1 - Menopausal and female climacteric states Category: Medical (2) Well woman exam with routine gynecological exam: Code(s): Z01.419 - Encounter for gynecological examination (general) (routine) without abnormal findings Category: Medical (3) Cervical cancer screening: Comment: Previous Pap smear negative 2021 at [facility], next Pap smear 2026. Code(s): Z12.4 - Encounter for screening for malignant neoplasm of cervix Category: Medical Plan -----Discussed in this visit the following: healthy balanced diet, regular and consistent exercise, getting recommended health screens, doing the best she can for her particular health concerns, kegel exercises, pap smear screening and followup recommendations, mammography screening and SBE, normal changes in cycles in her life stage--- . Discussed her cessation of menses once she stopped the pill her previous OB thought put Paps that she had already gone through menopause before stopping the pill therefore she just had 1. At the very end of the pill taking regimen. Her hot flashes have dissipated. She still gets migraine headaches and has yet found something that helps last medication that was trialed did not work well for her and she had to wean off of it. Discussed triggers certain lighting and stores sets her off and barometric pressure changes. Discussed getting her yearly mammograms. She may return 1 year for brimmer blocker annual exam however if she has no brimmer blocker concerns whatsoever as long as she is getting her mammogram screening via her primary care provider then she could return in 2 years for her brimmer blocker and Pap smear with Co testing then. She declined any STI or other testing as not necessary and she had no abnormal discharge. Incidental finding the patient has a small swelling under her ischial tuberosity that is been there for least 10 years that is nontender and does not change and she could seek surgery to remove it but she has opted to leave it alone. As she rides a bike it would be right where she sits on a saddle and the stitches could prove troublesome. RTC 1 year or 2 if she opts for that. Coding Level of Care Code New Pt Prev Care 40-64y(78578) Diagnoses Perimenopause N95.1 Well woman exam with routine gynecological exam Z01.419 Cervical cancer screening Z12.4
[2024-12-17 14:54] VITALS: BP 124/78
--- OUTSIDE RECORDS SUMMARY | 2024-12-17 18:34 | XMS_ITS | Clinical Summary ---
Author Organization [facility] [address] [place] [address] [place] [address] Phone Care Team Providers Care Service Delivery Analyst Name Role Phone Unavailable Primary Care Provider Unavailabl e Encounters Date Type Department Care Team Description 11/13/2024 3:09 PM EDT - 11/13/2024 11:59 PM EDT Hospital Encounter Radiology Department [address] [phone] Encounter for screening mammogram for breast cancer Discharge Disposition: Home or Self Care from Last 3 Months Surgical History Surgery Date Site/Laterality Comments APPENDECTOMY age 6 PROCEDURE: HISTORICAL APPENDECTOMY; COMMENT: Slow waking up form anethesia OTHER SURGICAL HISTORY PROCEDURE: OK RPR UMBILICAL HERNIA < 5 YRS REDUCIBLE; COMMENT: Umbilical herrnia - HERNIA REPAIR PROCEDURE: OK REPAIR FIRST ABDOMINAL WALL HERNIA OTHER SURGICAL HISTORY 02/25/2010 PROCEDURE: ARTHROSCOPY PROCEDURE NEC; COMMENT: hip surgery ligament repair Mar 2010 CHOLECYSTECTOMY 02/10/2021 PROCEDURE: HISTORICAL CHOLECYSTECTOMY; COMMENT: Pt reports COLONOSCOPY 12/2020 PROCEDURE: HISTORICAL COLONOSCOPY; COMMENT: Per pt, diverticulosis ESOPHAGOGASTRODUODENOSCOPY 12/2020 PROCEDURE: OK ESOPHAGOGASTRODUODENOSCOPY TRANSORAL DIAGNOSTIC; COMMENT: Per pt, irritation [...] Gastroparesis 07/13/2021 DX:Gastroparesis ; COMMENT: 06/06/2021 visit [facility] Family history of breast cancer 08/04/2010 [...] skin cance r Maternal Grandfather (Age 82) [place] Maternal Grandmother 60+ (Age 85) tate ng failure and [place] Mother Alive GB out, cholest fabien, thyroid resection for hyperthyroidism Other m aunt 70s Alive Paternal Grandfather (Age ?) [place] Paternal Grandmother (Age ?) [place] Uncle Social [...] Sexual Orientation Not on file Obstetrics History Para Term AB IAB SAB Ectopic Multiple Livin g Live Births 2 2 2 2 Date Outcome GA Total Labor Labor/2nd/3rd Weight Sex Type Anes PTL Zulma A1 A5 Name Clin Term Term Last Filed Vital Signs Vital Sign Reading [...] 06/04/2023 2:35 PM EDT Plan of Treatment Health Maintenance Due Date Last Done Comments Colorectal Cancer Screening: Colonoscopy 1970 Hepatitis B Vaccines (1 of 3 - 19+ 3-dose series) 1989 Cervical Cancer Screening: HPV 05/30/1991 Pneumococcal Vaccine: 50+ Years (1 of 1 - PCV) 2020 Zoster Vaccines (1 of 2) 2020 06/26/2016, 10/27 Cholesterol Screening (Lipid Panel) 02/03/2022 HIV Screening 02/03/2022 Hepatitis C Screening 02/03/2022 Social Influencers of Health Screening 02/03/2022 DTaP,Tdap,and Td Vaccines (3 - Td or Tdap) 05/01/2022 05/01/2012, 12/27/2005 Depression Screening 02/26/2024 COVID-19 Vaccine ( season) 2024 12/25/2021, 12/26/2020, 11/25/2020, Additional history exists Influenza Vaccine (#1) 2024 , 12/25/2021, 05/17/2021, Additional history exists Breast Cancer Screening 11/13/2026 11/14/19 25, 11/08/2023, 11/08/2023, Additional history exists RSV Immunization Adult Patients [...] Procedure Name Priority Date/Time Associated Diagnosis Comments MG MAMMO DIGITAL SCREENING W STALIN BILAT Routine 11/13/2024 3:22 PM EDT Encounter for screening mammogram for breast cancer from Last 3 Months Results * MG Mammo Digital Screening w Stalin bilat (11/13/2024 3:22 PM EDT) Anatomical Region Laterality Modality Breast Bilateral Mammography 11/16/2024 12:5 7 PM EDT Impressions 11/16/2024 1:28 PM EDT No mammographic evidence for malignancy. BI-RADS CATEGORY: 1 - NEGATIVE RECOMMENDATION: Screening bilateral mammogram is recommended in 1 year. Mammo Location: [facility], [address] [place] [address], [id number], . -------- FINAL REPORT -------- Dictated By: Gisela Steve Dictated Date: 11/16/2024 12:57 ET Assigned Physician: Gisela Steve Reviewed and Electronically Signed By: Gisela Steve Signed Date: 11/16/2024 13:28 ET Workstation ID: [id number] Transcribed By: Self Edit Transcribed Date: 11/16/2024 12:57 ET Narrative 11/16/2024 1:28 PM EDT Bilateral screening mammogram. CLINICAL: 54 years old, Female, routine annual exam. COMPARISON: Prior mammograms, latest from 11/08/2023. TECHNIQUE: Bilateral MLO and CC views were obtained digitally with 2-D C views and 3-D mammogram (digital breast tomosynthesis). Computer-aided detection was utilized in evaluation of this exam (CAD). FINDINGS: There is no evidence of suspicious mass or architectural distortion. No worrisome calcifications are evident. There has been no significant change from prior exam(s). BREAST DENSITY: C - The breasts are heterogeneously dense which may obscure small masses. Procedure Note Gisela Steve MD - 11/16/2024 Bilateral screening mammogram. CLINICAL: 54 years old, Female, routine annual exam. COMPARISON: Prior mammograms, latest from 11/08/2023. TECHNIQUE: Bilateral MLO and CC views were obtained digitally with 2-D Cviews and 3-D mammogram (digital breast tomosynthesis). Computer-aideddetection was utilized in evaluation of this exam (CAD). FINDINGS: There is no evidence of suspicious mass or architectural distortion. Noworrisome calcifications are evident. There has been no significantchange from prior exam(s). BREAST DENSITY: C - The breasts are heterogeneously dense which mayobscure small masses. IMPRESSION: No mammographic evidence for malignancy. BI-RADS CATEGORY: 1 - NEGATIVE RECOMMENDATION: Screening bilateral mammogram is recommended in 1 year. Mammo Location: [facility], [address] [place] [address], [id number], . -------- FINAL REPORT -------- Dictated By: Gisela Steve Dictated Date: 11/16/2024 12:57 ET Assigned Physician: Gisela Steve Reviewed and Electronically Signed By: Gisela Steve Signed Date: 11/16/2024 13:28 ET Workstation ID: [id number] Transcribed By: Self Edit Transcribed Date: 11/16/2024 12:57 ET Farrah Rayna [place] [facility] IMG BI PROCEDURES Final Result from Last 3 Months Insurance [facility]
--- OUTSIDE RECORDS SUMMARY | 2024-12-17 18:34 | XMS_ITS | Clinical Summary ---
Author Organization [facility] Facility Address [address] [address] Care Team Providers Care Sfdc Technical Architect Name Role Phone Veronica Ordaz MD Primary Care Provider [phone] Allergies No known active allergies Medications ZOLMitriptan [...] Gastroparesis 07/13/2021 10/30/2022 Overview (10/30/2022): 06/06/2021 visit [facility] 06/06/2021 visit [facility] Diverticular disease 07/13/2021 10/30/2022 Menstrual migraine [...] of breast 0 08/04/2010 10/30/2022 Overview (10/30/2022): [facility] Immunizations Immunization Administration Dates Next Due Influenza, [...] 12/22/2018, Additional history exists Insurance Care Teams Sfdc Technical Architect Relationship Specialty Start Date End Date Veronica Ordaz MD [address] [place] [address] PCP - General Internal Medicine 05/09/22
--- OUTSIDE RECORDS SUMMARY | 2024-12-17 18:34 | XMS_ITS | Clinical Summary ---
Author Organization [facility] Address [address] [place] [address] Phone Care Team Providers Care Foundation Assistant Name Role Phone Veronica Lam MD Primary Care Provider Allergies No known active allergies Medications cholecalciferol [...] 07/13/2021 Gastroparesis 07/13/2021 Overview (01/31/2022): 06/06/2021 visit [facility] Menstrual migraine without s tatus migrainosus, [...] Upcoming Encounters Date Type Department Care Team ([facility] st Contact Info) Description 04/07/2025 2:00 PM EST Office Visit [facility] Neurology [facility] [place] [address] [facility] [address] [place] [id number] Meño Vital MD [address] [place] [phone] [email or web address] Maintenance Due Date Last Done [...] 12/25/2021, 05/17/2021, Additional history exists COVID-19 VACCINE (2024- season) 2024 12/25/2021, 12/26/2020, 11/25/2020, Additional history exists PAP SMEAR 02/06/2025 02/06/2022 DEPRESSION SCREENING 06/10/2025 06/10/2024 MAMMOGRAM 11/07/2025 11/08/2023, 11/01/2021 RSV VACCINE (1 - 1-dose 75+ series) 2045 SMOKING STATUS SCREENING (Once After 26 Yrs) [...] topic Medical Devices Not on file Insurance [address] [place] [address] [place] [address] [place] [address] Care Teams Foundation Assistant Relationship Specialty Start Date End Date Veronica Lam MD PCP - General Internal Medicine 01/31/22 Additional Source Comments The information contained in this document represents components of the legal health record. It is not the complete legal health record.[facility]
== END 2024-12-17 16:09 | disposition home or self-care (01) ==
LOC: HO.HWSM 14:46
PROVIDERS: PCP Internal Medicine; Visit Provider Advanced Practice Midwife
DX: Z01.419 Encounter for gynecological examination (general) (routine) without abnormal findings (principal); N95.1 Menopausal and female climacteric states
CPT/HCPCS: 99386; 99459

== ENCOUNTER → 2024-12-21 14:48 | Outpatient (REF) | payer BC, SELFPAY ==
--- NOTE | 2024-12-21 14:52 | HM_ITS ---
* Total monitoring time 12 days. * Underlying rhythm is sinus with an average rate of 85/Min. * Rare supraventricular ectopy. * Rare ventricular ectopy. * No significant pauses or high-grade AV blocks. * 'Body tingles', 'migraine', listed in patient diary correlates with sinus rhythm. MTDD
--- OUTSIDE RECORDS SUMMARY | 2024-12-21 18:15 | XMS_ITS | Clinical Summary ---
Author Organization [facility] [address] [place] [address] [place] [address] Phone Care Team Providers Care Collar Folder Operator Name Role Phone Unavailable Primary Care Provider Unavailabl e Encounters Date Type Department Care Team Description 11/13/2024 3:09 PM EDT - 11/13/2024 11:59 PM EDT Hospital Encounter Radiology Department [address] [phone] Encounter for screening mammogram for breast cancer Discharge Disposition: Home or Self Care from Last 3 Months Surgical History Surgery Date Site/Laterality Comments APPENDECTOMY age 6 PROCEDURE: HISTORICAL APPENDECTOMY; COMMENT: Slow waking up form anethesia OTHER SURGICAL HISTORY PROCEDURE: [place] RPR UMBILICAL HERNIA < 5 YRS REDUCIBLE; COMMENT: Umbilical herrnia - HERNIA REPAIR PROCEDURE: HI REPAIR FIRST ABDOMINAL WALL HERNIA OTHER SURGICAL HISTORY 02/25/2010 PROCEDURE: ARTHROSCOPY PROCEDURE NEC; COMMENT: hip surgery ligament repair Mar 2010 CHOLECYSTECTOMY 02/10/2021 PROCEDURE: HISTORICAL CHOLECYSTECTOMY; COMMENT: Pt reports COLONOSCOPY 12/2020 PROCEDURE: HISTORICAL COLONOSCOPY; COMMENT: Per pt, diverticulosis ESOPHAGOGASTRODUODENOSCOPY 12/2020 PROCEDURE: HI ESOPHAGOGASTRODUODENOSCOPY TRANSORAL DIAGNOSTIC; COMMENT: Per pt, irritation [...] Gastroparesis 07/13/2021 DX:Gastroparesis ; COMMENT: 06/06/2021 visit [facility] Family history of breast cancer 08/04/2010 [...] skin cance r Maternal Grandfather (Age 82) [place] Maternal Grandmother 60+ (Age 85) tate ng failure and [place] Mother Alive GB out, cholest fabien, thyroid resection for hyperthyroidism Other m aunt 70s Alive Paternal Grandfather (Age ?) [place] Paternal Grandmother (Age ?) [place] Uncle Social [...] is recommended in 1 year. Mammo Location: [facility], [address] [place] [address], [id number], . -------- FINAL REPORT -------- Dictated By: Gisela Steve Dictated Date: 11/16/2024 12:57 ET Assigned Physician: Gisela Steve Reviewed and Electronically Signed By: Gisela Steve Signed Date: 11/16/2024 13:28 ET Workstation ID: [id number] Transcribed By: Self Edit Transcribed Date: 11/16/2024 [...] is recommended in 1 year. Mammo Location: [facility], [address] [place] [address], [id number], . -------- FINAL REPORT -------- Dictated By: Gisela Steve Dictated Date: 11/16/2024 12:57 ET Assigned Physician: Gisela Steve Reviewed and Electronically Signed By: Gisela Steve Signed Date: 11/16/2024 13:28 ET Workstation ID: [id number] Transcribed By: Self Edit Transcribed Date: 11/16/2024 12:57 ET Farrah Rayna [place] [facility] IMG BI PROCEDURES Final Result from Last 3 Months Insurance [facility]
--- OUTSIDE RECORDS SUMMARY | 2024-12-21 18:15 | XMS_ITS | Clinical Summary ---
Author Organization [facility] Facility Address [address] [address] Care Team Providers Care Sales Floor Associate Name Role Phone Veronica Ordaz MD Primary Care Provider [phone] Allergies No known active allergies Medications ZOLMitriptan [...] Gastroparesis 07/13/2021 10/30/2022 Overview (10/30/2022): 06/06/2021 visit [facility] 06/06/2021 visit [facility] Diverticular disease 07/13/2021 10/30/2022 Menstrual migraine [...] of breast 0 08/04/2010 10/30/2022 Overview (10/30/2022): [facility] Immunizations Immunization Administration Dates Next Due Influenza, [...] 12/22/2018, Additional history exists Insurance Care Teams Sales Floor Associate Relationship Specialty Start Date End Date Veronica Ordaz MD [address] [place] [address] PCP - General Internal Medicine 05/09/22
--- OUTSIDE RECORDS SUMMARY | 2024-12-21 18:15 | XMS_ITS | Clinical Summary ---
Author Organization [facility] Address [address] [place] [address] Phone Care Team Providers Care Parts Counterperson Name Role Phone Veronica Lam MD Primary [...] 07/13/2021 Gastroparesis 07/13/2021 Overview (01/31/2022): 06/06/2021 visit [facility] Menstrual migraine without s tatus migrainosus, [...] Upcoming Encounters Date Type Department Care Team ([facility] st Contact Info) Description 04/07/2025 2:00 PM EST Office Visit [facility] Neu[facility] [place] [address] [facility] [address] [place] [address] Meño Vital MD [address] [place] [phone] [email or web address] Health Maintenance Due Date Last Done [...] topic Medical Devices Not on [place] [address] [place] [address] [place] [address] [place] [address] Care Teams Parts Counterperson Relationship Specialty Start Date End Date Veronica Lam MD PCP - General Internal Medicine 01/31/22 Additional Source Comments The information contained in this document represents components of the legal health record. It is not the complete legal health record.[facility]
== END ==
LOC: HO.CARD 14:48
PROVIDERS: PCP Internal Medicine; Visit Provider Physician Assistant
DX: R42 Dizziness and giddiness (principal)
CPT/HCPCS: 93246

== ENCOUNTER → 2024-12-21 14:52 | Outpatient (BNV) | payer BC, SELFPAY | PROVIDERS: PCP Internal Medicine; Visit Provider Internal Medicine | DX: I49.3 Ventricular premature depolarization (principal); I49.49 Other premature depolarization | CPT/HCPCS: 93248 ==

== ENCOUNTER 2024-12-22 15:02 | Outpatient (REF) | payer BC, SELFPAY ==
--- NOTE | ~2024-12-22 | XR_ITS ---
EXAMINATION: XR KNEE, RIGHT CLINICAL INFORMATION: M25.561 - Pain in right knee COMPARISON: None available. TECHNIQUE: Four views of the right knee. FINDINGS: No fracture or joint effusion. Alignment is anatomic. Joint spaces are maintained. No abnormal soft tissue calcification. XR/XR knee RT 4V IMPRESSION: Unremarkable right knee. Electronically signed by: Arie Vee MD 12/22/2024 04:03 PM EDT
== END 2024-12-22 15:03 | disposition home or self-care (01) ==
LOC: HO.HMGCX 15:02
PROVIDERS: PCP Internal Medicine; Visit Provider Physician Assistant Medical
DX: M25.561 Pain in right knee (principal)
CPT/HCPCS: 73564

== ENCOUNTER 2024-12-22 15:02 | Outpatient (AMB) | payer BC, SELFPAY ==
--- NOTE | 2024-12-22 15:03 | MHC.OFFWIV ---
Intake Vital Signs 12/22/24 15:04 Height 5 ft 3 in Weight 140 lb BMI 24.8 BP 134/80 Blood Pressure Location Rt brachial Position Sitting Pulse 93 Pulse Source Pulse Oximeter Temp 98.1 F Temp Source Oral Pulse Oximetry (%) 100 Oxygen Delivery Method Room Air Intake Visit Reasons: EP Pain in right knee Intake Note: Patient presents right knee pain x2 weeks - no injury Patient Tobacco Use Status: Never used Tobacco Allergies No Known Allergies Allergy (Verified 12/22/24 15:06) Do you need a note to return to daycare/school/sports/work: No HPI HPI Comments History of Present Illness Details History of Present Illness - The patient is a 54-year-old female presenting with right knee pain. - The pain started two weeks ago after kneeling on a carpeted floor, resulting in severe pain. - The pain is similar to a previous labrum tear in the hip, occurring when the knee is positioned in a certain way. - No swelling is noted, and the pain is pinpointed to a specific area on the knee. - The patient reports no pain during knee flexion or extension, nor with lateral pressure. - The patient has not used medication for pain relief but has applied ice. - The patient can walk but is unable to kneel on the affected knee. - She denies radiation of the pain, calf pain, ankle pain, foot pain, numbness, or tingling. Physical Exam General: Cooperative, healthy appearing, comfortable, no acute distress and well developed Respiratory: Normal respiratory effort and able to speak in complete sentences. Clear to auscultation bilaterally Cardiovascular: Regular rate and rhythm. Normal S1 and S2 Skin: No rashes or lesions noted. Musculoskeletal: No swelling or deformity noted of the knee. FROM of the knee. No click noted. No TTP of the patella, medial or lateral condyle, medial or lateral meniscus, or posterior fossa. TTP of the right patellar ligament. Negative anterior drawer test. Negative Aric noted. DTR are 1+ on the LE. Negative Homans noted. FROM of the ankle. Ambulates with a steady gait. Strength is 5/5 on the LE bilaterally. Right knee pain noted, with excruciating pain when kneeling. No swelling observed. Neuro: Sensation is intact on the LE bilaterally. COUNTS INCLUDE 234 BEDS AT THE [facility] Medical History (Updated 12/17/24 @ 15:44 by Farrah Alves CNM) Appendicitis Medication side effects Surgical History (Updated 12/17/24 @ 15:04 by Darline Hanson MA) Hx of appendectomy Hx of cholecystectomy Family History (Updated 12/17/24 @ 14:52 by Darline Hanson MA) Maternal Aunt Breast cancer Maternal Grandmother Breast cancer Social History Housing: House Alcohol intake: current Patient Tobacco Use Status: Never used Tobacco e-Cigarette/Vaping Use: Never Used Second Hand Smoke Exposure: No service: No Current occupational status: employed 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 Current occupational exposures/hazards: No Cognitive needs: No Hearing needs: No Vision needs: No Female Reproductive History Menstrual Age of Menarche: 13 Review of Systems Const All systems reviewed & are unremarkable except as noted in HPI and below Physical Exam Vital Signs: Last Vital Signs Temp 98.1 F 12/22/24 15:04 Pulse 93 12/22/24 15:04 BP 134/80 12/22/24 15:04 Pulse Ox 100 12/22/24 15:04 Oxygen Delivery Method Room Air 12/22/24 15:04 BMI result Body Mass Index 24.8 Results Reviewed Results Reviewed: will review the x-ray in the office Assessment & Plan Assessment & Plan (1) Right knee pain: Code(s): M25.561 - Pain in right knee Qualifiers: Chronicity: acute Qualified Code(s): M25.561 - Pain in right knee Plan Most likely strain vs fracture vs ligamentous strain plan - rest, ice and elevation - tylenol or motrin as needed for pain - will order an x-ray - will also refer her to ortho for further evaluation - activities as tolerated - she may need an MRI for further investigation - follow up with PCP Orders: Referrals Orthopedics Referral M25.561 - Pain in right knee Coding Level of Care Code Est Pt Level 4 (88865) Diagnoses Acute pain of right knee M25.561 Chronicity: acute
[2024-12-22 15:04] VITALS: BP 134/80; PULSE 93; TEMP 36.7; O2SAT 100; BMI 24.8
--- OUTSIDE RECORDS SUMMARY | 2024-12-22 19:25 | XMS_ITS | Clinical Summary ---
Author Organization [facility] Facility Address [address] [address] Care Team Providers Care Spice Mixer Name Role Phone Veronica Ordaz MD Primary Care Provider [phone] Allergies No known active allergies Medications ZOLMitriptan [...] Gastroparesis 07/13/2021 10/30/2022 Overview (10/30/2022): 06/06/2021 visit [facility] 06/06/2021 visit [facility] Diverticular disease 07/13/2021 10/30/2022 Menstrual migraine [...] of breast 0 08/04/2010 10/30/2022 Overview (10/30/2022): [facility] [place] Immunizations Immunization Administration Dates Next Due Influenza, [...] 12/22/2018, Additional history exists Insurance Care Teams Spice Mixer Relationship Specialty Start Date End Date Veronica Ordaz MD [address] [place] [address] PCP - General Internal Medicine 05/09/22
--- OUTSIDE RECORDS SUMMARY | 2024-12-22 19:25 | XMS_ITS | Clinical Summary ---
Author Organization [facility] Address [address] [place] [address] Phone Care Team Providers Care Restaurant Assistant Name Role Phone Veronica Lam MD [...] 07/13/2021 Gastroparesis 07/13/2021 Overview (01/31/2022): 06/06/2021 visit [facility] Menstrual migraine without s tatus migrainosus, [...] Upcoming Encounters Date Type Department Care Team ([facility] st Contact Info) Description 04/07/2025 2:00 PM EST Office Visit [facility] Neurology at [place] [address] [facility] [address] [place] [address] Meño Vital MD [address] [place] [phone] [email or web address] Health Maintenance Due Date Last Done Comments [...] topic Medical Devices Not on file [place] [address] [place] [address] [place] [address] Care Teams Restaurant Assistant Relationship Specialty Start Date End Date Veronica Lam MD PCP - General Internal Medicine 01/31/22 Additional Source Comments The information contained in this document represents components of the legal health record. It is not the complete legal health record.[facility]
--- OUTSIDE RECORDS SUMMARY | 2024-12-22 19:25 | XMS_ITS | Clinical Summary ---
Author Organization [facility] [address] [place] [address] [place] [address] Phone Care Team Providers Care English Instructor Name Role Phone Unavailable Primary Care Provider Unavailabl e Encounters Date Type Department Care Team Description 11/13/2024 3:09 PM EDT - 11/13/2024 11:59 PM EDT Hospital Encounter Radiology Department [address] [phone] Encounter for screening mammogram for breast cancer Discharge Disposition: Home or Self Care from Last 3 Months Surgical History Surgery Date Site/Laterality Comments APPENDECTOMY age 6 PROCEDURE: HISTORICAL APPENDECTOMY; COMMENT: Slow waking up form anethesia OTHER SURGICAL HISTORY PROCEDURE: NH RPR UMBILICAL HERNIA < 5 YRS REDUCIBLE; COMMENT: Umbilical herrnia - HERNIA REPAIR PROCEDURE: [place] REPAIR FIRST ABDOMINAL WALL HERNIA OTHER SURGICAL HISTORY 02/25/2010 PROCEDURE: ARTHROSCOPY PROCEDURE NEC; COMMENT: hip surgery ligament repair Mar 2010 CHOLECYSTECTOMY 02/10/2021 PROCEDURE: HISTORICAL CHOLECYSTECTOMY; COMMENT: Pt reports COLONOSCOPY 12/2020 PROCEDURE: HISTORICAL COLONOSCOPY; COMMENT: Per pt, diverticulosis ESOPHAGOGASTRODUODENOSCOPY 12/2020 PROCEDURE: [place] ESOPHAGOGASTRODUODENOSCOPY TRANSORAL DIAGNOSTIC; COMMENT: Per pt, irritation [...] Gastroparesis 07/13/2021 DX:Gastroparesis ; COMMENT: 06/06/2021 visit [facility] Family history of breast cancer 08/04/2010 [...] skin cance r Maternal Grandfather (Age 82) [place] Maternal Grandmother 60+ (Age 85) tate ng failure and [place] Mother Alive GB out, cholest fabien, thyroid resection for hyperthyroidism Other m aunt 70s Alive Paternal Grandfather (Age ?) [place] Paternal Grandmother (Age ?) [place] Uncle Social [...] is recommended in 1 year. Mammo Location: [facility], [address] [place] [address], [address], . -------- FINAL REPORT -------- Dictated By: Gisela Steve Dictated Date: 11/16/2024 12:57 ET Assigned Physician: Gisela Steve Reviewed and Electronically Signed By: Gisela Steve Signed Date: 11/16/2024 13:28 ET Workstation ID: [id number] Transcribed By: Self Edit Transcribed Date: 11/16/2024 [...] is recommended in 1 year. Mammo Location: [facility], [address] [place] [address], [address], . -------- FINAL REPORT -------- Dictated By: Gisela Steve Dictated Date: 11/16/2024 12:57 ET Assigned Physician: Gisela Steve Reviewed and Electronically Signed By: Gisela Steve Signed Date: 11/16/2024 13:28 ET Workstation ID: [id number] Transcribed By: Self Edit Transcribed Date: 11/16/2024 12:57 ET Farrah Rayna [place] [facility] IMG BI PROCEDURES Final Result from Last 3 Months Insurance [facility]
== END 2024-12-22 15:48 | disposition home or self-care (01) ==
PROVIDERS: PCP Internal Medicine; Visit Provider Physician Assistant Medical
DX: M25.561 Pain in right knee (principal)

== ENCOUNTER → 2024-12-22 15:49 | Outpatient (BNV) | payer BC, SELFPAY | PROVIDERS: PCP Internal Medicine; Visit Provider Radiology Diagnostic Radiology | DX: M25.561 Pain in right knee (principal) | CPT/HCPCS: 73564 ==

== ENCOUNTER → 2025-01-15 15:49 | Outpatient (BNVA) | payer BC, SELFPAY | PROVIDERS: PCP Internal Medicine; Visit Provider Internal Medicine | DX: Z00.00 Encounter for general adult medical examination without abnormal findings (principal); Z23 Encounter for immunization; H53.2 Diplopia; E83.19 Other disorders of iron metabolism; R51.9 Headache, unspecified; G89.29 Other chronic pain | CPT/HCPCS: 90471; 90662 ==

== ENCOUNTER → 2025-01-15 15:49 | Outpatient (AMB) | payer BC, SELFPAY ==
--- OUTSIDE RECORDS SUMMARY | 2025-01-15 15:53 | XMS_ITS | Encounter Summary ---
Author Organization [facility] Address [address] [place] [address] Phone Care Team Providers Care Seasonal Customer Service Associate Name Role Phone Veronica Lam MD Primary Care Provider [phone] Encounter Details Date Type Department Care Team ([facility] Contact Info) Description 01/12/2025 Telephone [facility] Neurology at [address] [phone] [email or web address] Social History Tobacco Use Types Packs/Day Years Used Date Smoking Tobacco: Never Smokeless Tobacco: Never Education Answer Date Recorded Are you interested [...] on file Sexual Orientation Not on file documented as of this encounter Plan of Treatment Upcoming Encounters Date Type Department Care Team ([facility] Contact Info) Description 01/18/2025 9:30 AM EST Telemedicine [facility] Neurology at [address] [phone] Linda Ennis PA-C [address] [address] [email or web address] 04/07/2025 2:00 PM EST Office Visit [facility] Neurology at [place] [address] [place] [address] [address] Meño Vital MD [address] [place] [phone] [email or web address] documented as of this encounter Visit Diagnoses Not on filedocumented in this encounter Care Teams Seasonal Customer Service Associate Relationship Specialty Start Date End Date Veronica Lam MD PCP - General Internal Medicine 01/31/22 documented as of this encounter Additional Source Comments The information contained in this document represents components of the legal health record. It is not the complete legal health record.[facility]
--- OUTSIDE RECORDS SUMMARY | 2025-01-15 15:53 | XMS_ITS | Clinical Summary ---
Author Organization [facility] [address] [place] [address] [place] [address] Phone Care Team Providers Care Caterpillar Mechanic Name Role Phone Unavailable Primary Care Provider Unavailabl e Encounters Date Type Department Care Team Description 11/13/2024 3:09 PM EDT - 11/13/2024 11:59 PM EDT Hospital Encounter Radiology Department [address] [phone] Encounter for screening mammogram for breast cancer [...] Gastroparesis 07/13/2021 DX:Gastroparesis ; COMMENT: 06/06/2021 visit [facility] Family history of breast cancer 08/04/2010 [...] skin cance r Maternal Grandfather (Age 82) [place] Maternal Grandmother 60+ (Age 85) tate ng failure and [place] Mother Alive GB out, cholest fabien, thyroid resection for hyperthyroidism Other m aunt 70s Alive Paternal Grandfather (Age ?) [place] Paternal Grandmother (Age ?) [place] Uncle Social [...] is recommended in 1 year. Mammo Location: [facility], [address] [address], [address], . -------- FINAL REPORT -------- Dictated By: Gisela Steve Dictated Date: 11/16/2024 12:57 ET Assigned Physician: Gisela Steve Reviewed and Electronically Signed By: Gisela Steve Signed Date: 11/16/2024 13:28 ET Workstation ID: [id number] Transcribed By: Self Edit Transcribed Date: 11/16/2024 [...] is recommended in 1 year. Mammo Location: [facility], [address] [place] [address], [address], . -------- FINAL REPORT -------- Dictated By: Gisela Steve Dictated Date: 11/16/2024 12:57 ET Assigned Physician: Gisela Steve Reviewed and Electronically Signed By: Gisela Steve Signed Date: 11/16/2024 13:28 ET Workstation ID: [id number] Transcribed By: Self Edit Transcribed Date: 11/16/2024 12:57 ET Farrah Rayna [place] [facility] IMG BI PROCEDURES Final Result from Last 3 Months Insurance [facility]
--- OUTSIDE RECORDS SUMMARY | 2025-01-15 15:53 | XMS_ITS | Clinical Summary ---
Author Organization [facility] Address [address] [place] [address] Phone Care Team Providers Care Playground Supervisor Name Role Phone Veronica Lam MD Primary [...] 07/13/2021 Gastroparesis 07/13/2021 Overview (01/31/2022): 06/06/2021 visit [facility] Menstrual migraine without s tatus migrainosus, [...] months. Vitamin D deficiency 08/14/2018 Hypercholesterolemia 06/30/2014 Encounters Date Type Department Care Team Description 01/12/2025 Telephone [facility] Neurology at [address] [address] [place] from Last 3 Months Immunizations No known immunizations Social History Tobacco [...] Care Team (Late st Contact Info) Description 01/18/2025 9:30 AM EST Telemedicine [facility] Neurology at [address] [address] Linda Ennis PA-C [address] [address] [email or web address] 04/07/2025 2:00 PM EST Office Visit [facility] Neurology at [address] [address] Meño Vital MD [facility] [place] [address] [email or web address] Maintenance Due Date Last [...] topic Medical Devices Not on file Insurance [facility] [address] [place] [address] [place] [address] [place] [address] [place] Care Teams Playground Supervisor Relationship Specialty Start Date End Date Veronica Lam MD PCP - General Internal Medicine 01/31/22 Additional Source Comments The information contained in this document represents components of the legal health record. It is not the complete legal health record.[facility]
--- NOTE | 2025-01-15 16:20 | A.OFFPC_ITS ---
Vital Signs 01/15/25 16:30 01/15/25 16:33 Height 5 ft 3 in Weight 144 lb BMI 25.5 BP 136/96 H 133/94 H Blood Pressure Location Rt brachial Rt brachial Position Sitting Sitting Respiration 14 Pulse 95 Pulse Source Pulse Oximeter Temp 98.2 F Temp Source Oral Pulse Oximetry (%) 99 Oxygen Delivery Method Room Air Intake Visit Reasons: annual Intake Note: Emergency room follow up Journeyman Molder Required: No Allergies No Known Allergies Allergy (Verified 01/15/25 16:29) Tobacco use date assessed: 01/15/25 Dental Screening Dental Screen Date: 11/12/24 HPI HPI Comments History of Present Illness Details 54 yo female with pmhx of migraines, low vitamin D, polyarthralgia, microscopic hematuria presenting for CPE Neuro: [place] at [facility]. Was seen in ER [facility] Jan 07 for tingling in bilateral upper extremites, dizziness. BP was 155/94. EKG with non specific ST depressions. CTA done. V3 segment with beading could reflect fibromuscular dyspasia Seen in ER follow up by colleague for dizziness in Oct-subsequent Holter monitor largely unremarkable Headaches continue to be frequent. Was placed on amitriptiline then topamax. Had multiple ER visits with tachycardia, chest pain. Seen in [facility] ED for same on 07/24/23 and discharge home with taper off topiramate for suspected AE. began 25mg qd taper yesterday. HR 109 in triage. very anxious. no respiratory distress. no peripheral edema. Explained previously that even prior to going on the topamax she was not feeling well. She reports fatigue, double vision intermittently. Generalized muscle fatigue but denies weakness. She was and continues to wake up with headaches most days. If doesn't wake up with them they can start early or mid day. Previously relieved by relaxing, dark, laying down but no longer as effective. Zomig continues to be effective. She had MRI ordered but cannot tolerate even with anxiolytic. MSK: She has flares of muscle pain, polyarthralgia. Worse in left CMC and left shoulder. Seen in urgent care for acute knee pain. She has a visit with ortho next month She saw urology-microscopic hematuria. 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 Mammo-ordered Colonoscopy UTD per patient ROS see HPI PHYSICAL EXAM: GENERAL: Alert and oriented x 3. NAD EYES: EOMI. Anicteric. HENT: Moist mucous membranes. No scleral icterus. No cervical lymphadenopathy. LUNGS: Clear to auscultation bilaterally. CARDIOVASCULAR: Regular rate and rhythm. ABDOMEN: Soft, non-tender +bs EXTREMITIES: No edema. Non-tender. SKIN: No rashes or lesions. Warm. NEUROLOGIC: No focal neurological deficits. CN II-XII grossly intact PSYCHIATRIC: Cooperative. 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 Current occupational exposures/hazards: No Cognitive needs: No Hearing needs: No Vision needs: No Female Reproductive History Menstrual Age of Menarche: 13 Questionnaire Thrive Questionnaire Date Thrive assessed: 03/03/24 I am a: Patient What is your living situation today?: I have a steady place to live Within the past 12 months, did the food you bought not last and you didn't have the money to get more?: Never true Within the past 12 months, did you worry whether your food would run out before you got money to buy more?: Never true Do you have trouble paying for medicines?: No Do you have trouble getting transportation to medical appointments?: No Do you have trouble paying your heating and electricity bill?: No Do you have trouble taking care of your child, family member or friend?: No Do you have trouble with day-to-day activities such as bathing, preparing meals, shopping, managing finances, etc.?: No Are you currently unemployed and looking for a job?: No Are you interested in more education?: No Please select the resources that you would like help with: None Currently or been in a relationship where the following occur: No concerns reported THRIVE Score: 0 AUDIT C Alcohol Use Questionnaire (AUDIT-C) 1. How often do you have a drink containing alcohol?: Never 3. How often do you have six or more drinks on one occasion?: Never Total Score: 0 ANA-7 AMB Questionnaire ANA-7 Date ANA - 7 assessed: 08/05/23 Source: Developed by Drs. Paul Webb, Marycarmen New, Klever iRley and colleagues, with an educational som from [employer]. Physical exam (Primary Care) Vital Signs: Last Vital Signs Temp 98.2 F 01/15/25 16:30 Pulse 95 01/15/25 16:30 Resp 14 01/15/25 16:30 BP 133/94 H 01/15/25 16:33 Pulse Ox 99 01/15/25 16:30 Oxygen Delivery Method Room Air 01/15/25 16:30 BMI result Body Mass Index 25.5 Tobacco/Smoking Status: Tobacco use Status Tobacco use date assessed 01/15/25 01/15/25 16:35 Patient Tobacco Use Status Never used Tobacco 01/15/25 16:20 e-Cigarette/Vaping Use Never Used 01/15/25 16:20 Thrive Assessment: Date of Thrive Assessment Date Thrive assessed 03/03/24 01/15/25 16:20 Currently or been in a relationship where the following occur: No concerns reported Coding Level of Care Code Est Pt Prev Care 40-64y([address]) Diagnoses Physical exam Z00.00 Double vision H53.2 Iron excess E83.19 Chronic intractable headache, unspecified headache type R51.9; G89.29 Headache type: unspecified Intractability: intractable Assessment & Plan Assessment & Plan (1) Physical exam: Code(s): Z00.00 - Encounter for general adult medical examination without abnormal findings Category: Medical (2) Double vision: Code(s): H53.2 - Diplopia Category: Medical (3) Iron excess: Code(s): E83.19 - Other disorders of iron metabolism Category: Medical (4) Chronic headaches: Code(s): R51.9 - Headache, unspecified; G89.29 - Other chronic pain Category: Medical Qualifiers: Headache type: unspecified Intractability: intractable Qualified Code(s): R51.9 - Headache, unspecified; G89.29 - Other chronic pain Plan 54 year old for CPE Interval history reviewed. preventive measures for age discussed. Mammo ordered Headache-follow up 01/18 for neuro telehealth. ER visits reviewed BP is variable. Monitor closely Labs ordered Orders: Orders Tryptase 01/15/25 E83.19 - Other disorders of iron metabolism, G89.29 - Other chronic pain, H53.2 - Diplopia, R00.0 - Tachycardia, unspecified, R51.9 - Headache, unspecified Sm Sm/SLOT TAG INSERTER Antibodies 01/15/25 E83.19 - Other disorders of iron metabolism, G89.29 - Other chronic pain, H53.2 - Diplopia, R00.0 - Tachycardia, unspecified, R51.9 - Headache, unspecified IVAN Reflex Titer and Pattern 01/15/25 E83.19 - Other disorders of iron metabolism, G89.29 - Other chronic pain, H53.2 - Diplopia, R00.0 - Tachycardia, unspecified, R51.9 - Headache, unspecified Acetylcholine Recept. Blocking 01/15/25 H53.2 - Diplopia MuSK Antibody 01/15/25 H53.10 - Unspecified subjective visual disturbances, H53.2 - Diplopia CA echo transthoracic complete 01/15/25 R00.0 - Tachycardia, unspecified, R94.31 - Abnormal electrocardiogram [ECG] [EKG] Complete Blood Count Auto Diff 01/15/25 E83.19 - Other disorders of iron metabolism Lipid Panel 01/15/25 Z13.220 - Encounter for screening for lipoid disorders ANCA Vasculitides 01/15/25 E83.19 - Other disorders of iron metabolism, G89.29 - Other chronic pain, H53.2 - Diplopia, R00.0 - Tachycardia, unspecified, R51.9 - Headache, unspecified IRON PROFILE 01/15/25 E83.19 - Other disorders of iron metabolism MM tomosynthesis screening BI 01/15/25 Z12.31 - Encounter for screening mammogram for malignant neoplasm of breast
[2025-01-15 16:30] VITALS: BP 136/96; PULSE 95; RESP 14; TEMP 36.8; O2SAT 99; BMI 25.5
[2025-01-15 16:33] VITALS: BP 133/94
== END ==
LOC: HO.HMCFM 15:50
PROVIDERS: PCP Internal Medicine; Visit Provider Internal Medicine
DX: Z00.00 Encounter for general adult medical examination without abnormal findings (principal); H53.2 Diplopia; E83.19 Other disorders of iron metabolism; R51.9 Headache, unspecified; Z23 Encounter for immunization

== ENCOUNTER 2025-01-20 08:16 | Outpatient (REF) | payer BC, SELFPAY ==
--- OUTSIDE RECORDS SUMMARY | 2025-01-18 09:30 | XMS_ITS | Encounter Summary ---
Author Organization [facility] Address [address] [place] [address] Phone Care Team Providers Care Manager Furniture Name Role Phone Veronica Lam MD Primary Care Provider + [phone] Reason for Referral * Consultation (Within 2 weeks) - New Request Specialty Diagnoses / Procedures Referred By Sridhar bowman Referred To Contact Cardiology Linda Ennis PA-C [address] [place] [address] Phone: tel: fax: mailto:[email or web address] Referral ID Status Reason Start Date Expiration Date V isits Requested Visits Authorized [id number] New Request 01/18/2025 01/18/2026 1 1 Reason for Visit * Consultation (Routine) - Authorized Specialty Diagnoses / Procedures Referred By Sridhar bowman Referred To Contact Physician Manager Legal / Neurology Diagnoses Ok per Dr. Vital Procedures VIRTUAL ESTABLISHED Veronica Lam MD [address] [place] [address] Phone: tel: fax: Linda Ennis PA-C [address] [address] Phone: tel: fax: mailto:[email or web address] Referral ID Status Reason Start Date Expiration Date V isits Requested Visits Authorized [id number] Authorized 01/14/2025 01/14/2026 6 6 Encounter Details Date Type Department Care Team (Late st Contact Info) Description 01/18/2025 9:30 AM EST Telemedicine [facility] Neurology at [place] [address] [place] [address] Linda Ennis PA-C 60 [facility] [address] [place] [address] [email or web address] Migraine without aura and without status migrainosus, not intractable (Primary Dx); Complicated migraine Social History Tobacco Use Types Packs/Day Years [...] on file documented as of this encounter Progress Notes * Linda Ennis PA-C - 01/18/2025 9:30 AM EST [facility] Virtual Visit Follow Up Patient Visit Visit Date: 01/18/2025 Patient: Ms. Natividad Chun Referring Provider: Veronica Lam Md [address] [place] [address] PCP: Veronica Lam MD 140 [facility] / [facility] [address] I had the pleasure of seeing your patient in the virtual General Neurology Clinic today, 01/18/2025. LOVELY Chun is a 54 y.o. female who presents today via zoom for a virtual visit to continue management of migraine. She has been having migraines every day. She will split up her Zomig to try to help with migraines. She has been waking up with migraines. She can have pain behind her eyes, numbness in her face, typically her right side. Her whole head can feel tight. If she sets an alarm at 3 am she wont wake up in the morning with headaches. She has been to the ER twice in the past month. She felt her body was tingling and she felt she was going to pass out. She mostly felt symptoms in her arms. She went to the nurse at her school, decided to go to the ED due to increase in BP. She had a CT of the head and was found to have fibromuscular dyplasia. When she gets tired, she has double vision. She always feels tired. Neurologic History; Last Visit 06/17/24 Migraine without aura. I do not think that the patient requires maintenance medication at this timeand she may take 400 mg riboflavin and magnesium daily. Because of the history of chronic kidney disease nonsteroidal anti-inflammatory drugs should be avoided. The patient will continue to use zolmitriptan 2.5 to 5 mg as abortive treatment. As she has difficulty sleeping if the headaches increase in frequency in October I will suggest doxepin in combination with atenolol. The preventative medications will be discontinued at the end of March. Medication trials: Preventative: Topamax - unable to tolerate Amitriptyline - ineffective Abortive: Zolmitrptan Current Medications: zolmitriptan, vitamin D3, vitamin B2, magnesium oxide Allergies: has no known allergies. Past Medical History: CKD Social History: reports that she has never smoked. She has never used smokeless tobacco. Family History: Negative for neurologic disease. ROS: Constitutional: Denies fever/chills,weight loss or weight gain. Autonomic: denies night sweats, dizziness, presyncopal episodes Eyes: + diplopia ENT: Denies rhinorrhea, lacrimation, tinnitus or hearing loss Dermatologic: Denies rashes/lesions Respiratory: Denies dyspnea Cardiovascular: Denies chest pain GI: Denies constipation, diarrhea : Denies urinary retention or incontinence Neurologic: per HPI Psychologic: + depression Virtual Physical Exam: General appearance: Appropriately dressed for age, season, setting. Pulmonary: Breathing comfortably. Neurological examination: Limited due to VV Mental status: The patient is alert, oriented to conversation. Speech is clear and fluent with no dysarthria. Patient is tearful throughout history. They are a good historian. Cranial Nerves: CN II & III, IV, : Visual acuity intact. EOM full. No ptosis. CN VII: Facial movements symmetric. CN VIII: Hearing intact. CN IX/X: Swallow intact. CN XI: Shoulder shrug symmetric. Full ROM of neck. CN XII: Tongue midline upon protrusion. Impression: Patient presents with migraine with aura. She has been having daily migraines. She had a few instances where she had full body paresthesias. When this happened, she went to the nurses office, and found her blood pressure was elevated. She went to the ED twice. I do not have access to these records.They did a whole cardiac work up and CT of her head. They told her she was having a complex migraine, even though she did not have a headache. Would like to start her on propranolol for migraine prevention. Asked her to fax ER notes and CT scan. If she does have FMD would like her to be seen by a vascularspecialist. Plan: Medications: propranolol 20 mg BID, zolmitriptan 5 mg prn Follow up: [address] Vital scheduled Linda Ennis PA-C General Neurology [facility], [address] , [place] [address] Virtual Visit Attestation Modality: video Provider Location, state disclosed to patient: practice location Patient Location: home Patient State or Country: [place] documented in this encounter Plan of Treatment Upcoming Encounters Date Type Department Care Team (Late st Contact Info) Description 04/07/2025 2:00 PM EST Office Visit [facility] Neurology at [address] [address] Meño Vital MD [address] [place] [address] [email or web address] 08/04/2025 1:00 PM EDT Office Visit [facility] [address] [facility], 5th Floor, [address] [place] [address] Gutierrez De MD, MPH [address] [place] [address] [email or web address] Scheduled Referrals Name Type Priority Associated Diagnoses Order Schedule Ambulatory referral to [facility] Cardiology - Employed Practices Outpatient Referral Routine Ordered: 01/18/2025 documented as of this encounter Visit Diagnoses Diagnosis Migraine without aura and without status migrainosus, not intractable- Primary Complicated migraine Migraine, unspecified, without mention of intractable migraine without mention of status migrainosus documented in this encounter Care Teams Manager Furniture Relationship Specialty Start Date End Date Veronica Lam MD PCP - General Internal Medicine 01/31/22 documented as of this encounter Additional Source Comments The information contained in this document represents components of the legal health record. It is not the complete legal health record.[facility]
--- OUTSIDE RECORDS SUMMARY | 2025-01-20 08:31 | XMS_ITS | Clinical Summary ---
Author Organization [facility] [address] [place] [address] [place] [address] Phone Care Team Providers Care Hydraulic Plumber Helper Name Role Phone Unavailable Primary Care Provider Unavailabl e Encounters Date Type Department Care Team Description 11/13/2024 3:09 PM EDT - 11/13/2024 11:59 PM EDT Hospital Encounter Radiology Department [address] [phone] Encounter for screening mammogram for breast cancer Discharge Disposition: Home or Self Care from Last 3 Months Surgical History Surgery Date Site/Laterality Comments APPENDECTOMY age 6 PROCEDURE: HISTORICAL APPENDECTOMY; COMMENT: Slow waking up form anethesia OTHER SURGICAL HISTORY PROCEDURE: AL RPR UMBILICAL HERNIA < 5 YRS REDUCIBLE; COMMENT: Umbilical herrnia - HERNIA REPAIR PROCEDURE: AL REPAIR FIRST ABDOMINAL WALL HERNIA OTHER SURGICAL HISTORY 02/25/2010 PROCEDURE: ARTHROSCOPY PROCEDURE NEC; COMMENT: hip surgery ligament repair Mar 2010 CHOLECYSTECTOMY 02/10/2021 PROCEDURE: HISTORICAL CHOLECYSTECTOMY; COMMENT: Pt reports COLONOSCOPY 12/2020 PROCEDURE: HISTORICAL COLONOSCOPY; COMMENT: Per pt, diverticulosis ESOPHAGOGASTRODUODENOSCOPY 12/2020 PROCEDURE: AL ESOPHAGOGASTRODUODENOSCOPY TRANSORAL DIAGNOSTIC; COMMENT: Per pt, irritation [...] Gastroparesis 07/13/2021 DX:Gastroparesis ; COMMENT: 06/06/2021 visit [facility] Family history of breast cancer 08/04/2010 [...] skin cance r Maternal Grandfather (Age 82) [place] Maternal Grandmother 60+ (Age 85) tate ng failure and [place] Mother Alive GB out, cholest fabien, thyroid resection for hyperthyroidism Other m aunt 70s Alive Paternal Grandfather (Age ?) [place] Paternal Grandmother (Age ?) [place] Uncle Social [...] is recommended in 1 year. Mammo Location: [facility], [address] [place] [address], [address], . -------- FINAL REPORT -------- Dictated By: Gisela Steve Dictated Date: 11/16/2024 12:57 ET Assigned Physician: Gisela Steve Reviewed and Electronically Signed By: Gisela Steve Signed Date: 11/16/2024 13:28 ET Workstation ID: [id number] Transcribed By: Self Edit Transcribed Date: 11/16/2024 [...] is recommended in 1 year. Mammo Location: [facility], [address] [place] [address], [address], . -------- FINAL REPORT -------- Dictated By: Gisela Steve Dictated Date: 11/16/2024 12:57 ET Assigned Physician: Gisela Steve Reviewed and Electronically Signed By: Gisela Steve Signed Date: 11/16/2024 13:28 ET Workstation ID: [id number] Transcribed By: Self Edit Transcribed Date: 11/16/2024 12:57 ET Farrah Rayna Fitzhugh [facility] IMG BI PROCEDURES Final Result from Last 3 Months Insurance [facility]
--- OUTSIDE RECORDS SUMMARY | 2025-01-20 08:31 | XMS_ITS | Clinical Summary ---
Author Organization [facility] Address [address] [place] [address] Phone Care Team Providers Care C.O.D. Biller Name Role Phone Veronica Lam MD Primary Care Provider [phone] Allergies No known active allergies Medications cholecalciferol (VITAMIN D3) 25 MCG (1,000 unit) tablet Take 1 tablet by mouth daily. 2 Active butalbital-acet aminophen (PHRENILIN) 50-325 mg Tab Take 1 tablet by mouth every 4 (four) hours as needed. Active ZOLMitriptan (ZOMIG) 5 MG tablet Take 1/2 to 1 prn migraine headache. May repeat in 4 hrs. Limit 10 mg/24 hr. 12 tablet 5 5 Active riboflavin, vitamin B2, (VITAMIN B-2) 25 mg Tab Take by mouth. 5 Active magnesium hydroxide 400 mg (170 mg magnesium) Chew 0 Refills, Maintenance, 11/23/24 3:15:00 PM EDT, Partial fill upon patient request if the prescription is for a schedule II opioid drug. 5 Active propranoloL (INDERAL) 20 MG immediate release tablet Take 1 tablet (20 mg total) by mouth 2 (two) times a day. 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 migrainosus, [...] Encounters Date Type Department Care Team Description 01/18/2025 9:30 AM EST Telemedicine [facility] Neurology at [address] [address] Linda Ennis PA-C Migraine without aura and without status migrainosus, not intractable (Primary Dx); Complicated migraine 01/12/2025 Telephone [facility] Neurology at [address] [address] Scarlet Bhatti [place] from Last 3 Months Immunizations No [...] Description 04/07/2025 2:00 PM EST Office Visit [facility] Neurology at [place] [address] [facility] [address] [place] [address] Meño Vital MD [address] [place] [address] [email or web address] 08/04/2025 1:00 PM EDT Office Visit [facility] 32 [facility], 5th Floor, [address] [place] [address] Gutierrez De MD, MPH 55 [facility] [address] [place] [address] [email or web address] Health Maintenance Due Date Last [...] 02/06/2025 02/06/2022 DEPRESSION SCREENING 06/10/2025 06/10/2024 MAMMOGRAM 11/13/2026 11/13/2024, 10/26, 11/08/2023, Additional history exists RSV VACCINE (1 - 1-dose 75+ series) [...] topic Medical Devices Not on file Insurance [facility] [place] [address] [place] [id number] [place] [address] [place] [address] [place] [id number] Member Subscriber Plan / Payer (Ef fective 2010-Present) Name:Natividad Chun Relation to Subscriber:Self Name:Natividad Chun Payer ID:[id number] (NAIC) Type:HMO Address: [address] [place] [address] Member Subscriber Plan / Payer (Ef fective 2010-) Name:Natividad Chun Relation to Subscriber:Self Name:Natividad Chun Payer ID:[id number] (NAIC) Type:HMO Address: [address] [place] [address] [place] [address] Care Teams C.O.D. Biller Relationship Specialty Start Date End Date Veronica aLm MD PCP - General Internal Medicine 01/31/22 Additional Source Comments The information contained in this document represents components of the legal health record. It is not the complete legal health record.[facility]
--- OUTSIDE RECORDS SUMMARY | 2025-01-20 08:31 | XMS_ITS | Clinical Summary ---
Author Organization [facility] Address [address] [address] Care Team Providers Care Animal Sitter Name Role Phone Veronica Ordaz MD Primary Care Provider [phone] Allergies No known active allergies Medications ZOLMitriptan [...] Gastroparesis 07/13/2021 10/30/2022 Overview (10/30/2022): 06/06/2021 visit [facility] 06/06/2021 visit [facility] Diverticular disease 07/13/2021 10/30/2022 Menstrual migraine [...] of breast 0 08/04/2010 10/30/2022 [place] (10/30/2022): [facility] Immunizations Immunization Administration Dates Next Due Influenza, [...] 12/22/2018, Additional history exists Insurance Care Teams Animal Sitter Relationship Specialty Start Date End Date Veronica Ordaz MD [address] [place] [address] PCP - General Internal Medicine 05/09/22
--- OUTSIDE RECORDS SUMMARY | 2025-01-20 08:31 | XMS_ITS | Encounter Summary ---
Author Organization [facility] Address [address] [place] [address] Phone Care Team Providers Care Fence Making Machine Operator Name Role Phone Veronica Lam MD Primary Care Provider [phone] Encounter Details Date Type Department Care Team ([facility] Contact Info) Description 01/12/2025 Telephone [facility] Neurology at [address] [address] [email or web address] Social History Tobacco Use Types Packs/Day Years [...] Upcoming Encounters Date Type Department Care Team ([facility] Contact Info) Description 04/07/2025 2:00 PM EST Office Visit [facility] Neurology at [address] [phone] Meño Vital MD [address] [place] [address] [email or web address] 08/04/2025 1:00 PM EDT Office Visit [facility] 32 [facility], 5th Floor, [address] [place] [address] Gutierrez De MD, MPH [address] [address] [email or web address] documented as of this encounter Visit Diagnoses Not on filedocumented in this encounter Care Teams Fence Making Machine Operator Relationship Specialty Start Date End Date Veronica Lam MD PCP - General Internal Medicine 01/31/22 documented as of this encounter Additional Source Comments The information contained in this document represents components of the legal health record. It is not the complete legal health record.[facility]
[2025-01-20 11:25] LABS: MANUAL DIFF FLAG NO
[2025-01-20 11:26] LABS: Appearance Urine Clear; Glucose Urine UA Negative (Negative); PH 8.0 (5.0-9.0); Specific Gravity - Urine 1.010 (1.005-1.025)
[2025-01-20 11:27] LABS: Hematocrit 40.0 % (37.0-47.0); Hemoglobin 12.9 g/dl (12.0-16.0); Imm Gran Abs Auto 0.01 X10*3/uL (0.00-0.03); Imm Gran Pct Auto 0.2 % (0.0-0.4); Lymphocytes Absolute Auto 1.6 X10*3/uL (1.2-4.9); Mean Corpuscular HGB Conc 32.3 g/dl (31.0-35.0); Mean Corpuscular Hemoglobin 29.2 pg (27.0-33.0); Mean Corpuscular Volume 90.5 fL (80.0-98.0); NRBC Abs Auto 0.000 X10*3/uL (0.0-0.012); NRBC Pct Auto 0.0 /100WBC (0.0-0.2); Platelet Count 179 X10*3/uL (160-400); Red Blood Count 4.42 X10*6/uL (4.20-5.50); White Blood Count 4.4 X10*3/uL (4.8-10.8)
[2025-01-20 12:44] LABS: Cholesterol 239 mg/dL (<200); HDL Cholesterol 64 mg/dL (>40); Iron 118 mcg/dL (30-160); Percent Iron Saturation 47 % (15-50); Total Iron Binding Capacity 253 mcg/dL (228-428); Triglycerides 113 mg/dL (<150); Unsaturated Iron Binding 135 ug/dL
[2025-01-22 12:53] LABS: Anti Nuclear Antibody Screen NEGATIVE (NEGATIVE)
[2025-01-26 07:29] LABS: Acetylcholine Recept. Blocking <15 (<15)
[2025-01-26 13:38] LABS: Proteinase 3 PR3 Antibodies <1.0 AI; SM/Ribonucleoprotein Ab <1.0 NEG AI (<1.0 NEG); Smith Protein <1.0 NEG AI (<1.0 NEG)
== END 2025-01-20 08:17 | disposition home or self-care (01) ==
LOC: HO.WFDLDS 08:16
PROVIDERS: Visit Provider Internal Medicine
DX: Z01.84 Encounter for antibody response examination (principal); Z13.6 Encounter for screening for cardiovascular disorders; Z13.220 Encounter for screening for lipoid disorders; H53.2 Diplopia; R31.29 Other microscopic hematuria; E83.19 Other disorders of iron metabolism; G89.29 Other chronic pain; R00.0 Tachycardia, unspecified; R51.9 Headache, unspecified; H53.10 Unspecified subjective visual disturbances
CPT/HCPCS: 36415; 80061; 81003; 83520; 83540; 85025; 86021; 86038; 86042; 86235; 86366

== ENCOUNTER 2025-02-03 14:52 | Outpatient (AMB) | payer BC, SELFPAY ==
--- NOTE | 2025-02-03 14:55 | A.OFFVIS_ITS ---
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 The patient states that most of the pain is along the anterior aspect of her knee. She did aggravate her knee several months ago while kneeling. She states that she has stopped kneeling and her symptoms have improved somewhat. She denies any locking or giving way. Allergies No Known Allergies Allergy (Verified 01/15/25 16:29) Medication List - Last Reconciled 02/03/25 by Colin Newman MD cholecalciferol (vitamin D3) 25 mcg PO DAILY magnesium oxide PO riboflavin (vitamin B2) 400 mg PO DAILY zolmitriptan 5 mg PO Q2H PRN PFSH Medical History Appendicitis Medication side effects Surgical History Hx of appendectomy Hx of cholecystectomy Family History Maternal Aunt Breast cancer Maternal Grandmother Breast cancer Social History Housing: House Alcohol intake: current Patient Tobacco Use Status: Never used Tobacco e-Cigarette/Vaping Use: Never Used Second Hand Smoke Exposure: No service: No Current occupational status: employed 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 Current occupational exposures/hazards: No Cognitive needs: No Hearing needs: No Vision needs: No Female Reproductive History Menstrual Age of Menarche: 13 Physical Exam Const Other: Well-nourished well-developed very friendly female awake alert and oriented x3 in no acute distress Extrem Other: Right knee examination shows a minimal effusion, minimal crepitus with range of motion, tenderness along her prepatellar bursa, no swelling, no overlying skin lesions, negative Elian's test, no instability Results Reviewed Results Reviewed: X-rays of the patient's right knee show mild diffuse joint space narrowing, no acute bony abnormalities Assessment & Plan Assessment & Plan (1) Prepatellar bursitis, right knee: Code(s): M70.41 - Prepatellar bursitis, right knee Category: Medical Plan Ms. Chun presents with right knee pain due to prepatellar bursitis. I had a lengthy discussion with the patient regarding the treatment options. She will continue with her activity modifications. At this point the patient's symptoms are tolerable to her. She will follow up with me on an as-needed basis should her symptoms worsen in any way. Feel free to call me at any time should questions regarding her orthopedic management arise. Thank you very much for asking me to see this very friendly patient. I spent 22 minutes in reviewing the patient's records and imaging studies, seeing the patient and documenting in the medical record. Medications: New methylprednisolone (Medrol (Regino)) PO PER PKG DIR 21 ea 0RF Coding Level of Care Code New Pt Level 3 (25363) Add On Problem Visit Only Diagnoses Prepatellar bursitis, right knee M70.41
--- OUTSIDE RECORDS SUMMARY | 2025-02-03 23:25 | XMS_ITS | Encounter Summary ---
Author Organization [facility] Address [address] [place] [address] Phone Care Team Providers Care Manager Office Name Role Phone Veronica Lam MD Primary Care Provider [phone] Encounter Details Date Type Department Care Team ([facility] Contact Info) Description 01/12/2025 Telephone [facility] Neurology at [address] [address] [email or web address] Social History Tobacco Use [...] Upcoming Encounters Date Type Department Care Team ([facility] Contact Info) Description 04/07/2025 2:00 PM EST Office Visit [facility] Neurology at [address] [phone] Meño Vital MD [address] [place] [address] [email or web address] 08/04/2025 1:00 PM EDT Office Visit [facility] 32 [facility], 5th Floor, [address] [place] [address] Gutierrez De MD, MPH 55 [facility] [address] [place] [address] [email or web address] documented as of this encounter Visit Diagnoses Not on filedocumented in this encounter Care Teams Manager Office Relationship Specialty Start Date End Date Veronica Lam MD PCP - General Internal Medicine 01/31/22 documented as of this encounter Additional Source Comments The information contained in this document represents components of the legal health record. It is not the complete legal health record.[facility]
--- OUTSIDE RECORDS SUMMARY | 2025-02-03 23:25 | XMS_ITS | Clinical Summary ---
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, [...] Team Description 01/18/2025 9:30 AM EST Telemedicine [facility] Neurology at [address] [address] Linda Ennis PA-C Migraine without aura and without status migrainosus, not intractable (Primary Dx); Complicated migraine 01/12/2025 Telephone [facility] Neurology at [address] [address] Scarlet Bhatti [place] from Last 3 Months [...] Description 04/07/2025 2:00 PM EST Office Visit [facility] Neurology at [place] [address] [facility] [address] [place] [address] Meño Vital MD [address] [place] [address] [email or web address] 08/04/2025 1:00 PM EDT Office Visit [facility] 32 [facility], 5th Floor, [address] [place] [address] Gutierrez De MD, MPH 55 [facility] [address] [place] [address] [email or web address] Health Maintenance Due Date Last Done Comments [...] topic Medical Devices Not on file Insurance [facility] [address] [place] [address] [place] [address] [place] [address] [place] [address] Member Subscriber Plan / Payer (Ef fective 2010-Present) Name:Natividad Chun Relation to Subscriber:Self Name:Natividad Chun Payer ID:[id number] (NAIC) Type:HMO Address: [address] [address] Member Subscriber Plan / Payer (Ef fective 2010-) Name:Natividad Chun Relation to Subscriber:Self Name:Natividad Chun Payer ID:[id number] (NAIC) Type:HMO Address: [address] [address] [place] [address] [place] [id number] Care Teams Rounding Machine Tender Relationship Specialty Start Date End Date Veronica Lam MD PCP - General Internal Medicine 01/31/22 Additional Source Comments The information contained in this document represents components of the legal health record. It is not the complete legal health record.[facility]
--- OUTSIDE RECORDS SUMMARY | 2025-02-03 23:25 | XMS_ITS | Clinical Summary ---
Author Organization [facility] Facility Address [address] [address] Care Team Providers Care Radial Drill [employer] Operator [employer] Name Role Phone Veronica Ordaz MD Primary Care Provider [phone] Allergies No known active allergies Medications ZOLMitriptan [...] Gastroparesis 07/13/2021 10/30/2022 Overview (10/30/2022): 06/06/2021 visit [facility] 06/06/2021 visit [facility] Diverticular disease 07/13/2021 10/30/2022 Menstrual migraine [...] of breast 0 08/04/2010 10/30/2022 Overview (10/30/2022): [facility] [place] Immunizations Immunization Administration Dates Next Due Influenza, [...] 12/22/2018, Additional history exists Insurance Care Teams Radial Drill [employer] Relationship Specialty Start Date End Date Veronica Ordaz MD [address] [place] [address] PCP - General Internal Medicine 05/09/22
--- OUTSIDE RECORDS SUMMARY | 2025-02-03 23:25 | XMS_ITS | Clinical Summary ---
Author Organization [facility] [address] [place] [address] [place] [address] Phone Care Team Providers Care Post Splitter Name Role Phone Unavailable Primary Care Provider Unavailabl e Encounters Date Type Department Care Team Description 11/13/2024 3:09 PM EDT - 11/13/2024 11:59 PM EDT Hospital Encounter Radiology Department [address] [phone] Encounter for screening mammogram for breast cancer [...] Gastroparesis 07/13/2021 DX:Gastroparesis ; COMMENT: 06/06/2021 visit [facility] Family history of breast cancer 08/04/2010 [...] skin cance r Maternal Grandfather (Age 82) MD Maternal Grandmother 60+ (Age 85) tate ng failure and MD Mother Alive GB out, cholest fabien, thyroid resection for hyperthyroidism Other m aunt 70s Alive Paternal Grandfather (Age ?) MD Paternal Grandmother (Age ?) [place] Uncle Social History Tobacco Use Types Packs/Day Years Used Date Smoking Tobacco: Never Smokeless Tobacco: Never Alcohol Use Standard Drinks/Week Comments Not Currently 0.8 (1 standard drink = 0.6 oz p ure alcohol) Comments Unknown Sex and Gender Information Value Date Recorded Sex Assigned at Female 01/28/2025 10:05 AM EST Legal Sex Female 6:20 AM EST Gender [...] is recommended in 1 year. Mammo Location: [facility], [address] [place] [address], [id number], . -------- FINAL REPORT -------- Dictated By: Gisela Steve Dictated Date: 11/16/2024 12:57 ET Assigned Physician: Gisela Steve Reviewed and Electronically Signed By: Gisela Steve Signed Date: 11/16/2024 13:28 ET Workstation ID: [id number] Transcribed By: Self Edit Transcribed Date: 11/16/2024 [...] is recommended in 1 year. Mammo Location: [facility], [address] [place] [address], [id number], . -------- FINAL REPORT -------- Dictated By: Gisela Steve Dictated Date: 11/16/2024 12:57 ET Assigned Physician: Gisela Steve Reviewed and Electronically Signed By: Gisela Steve Signed Date: 11/16/2024 13:28 ET Workstation ID: [id number] Transcribed By: Self Edit Transcribed Date: 11/16/2024 12:[address] [place] [facility] IMG BI PROCEDURES Final Result from Last [address] [place] [address]
== END 2025-02-03 16:46 | disposition home or self-care (01) ==
LOC: HO.HOS 14:53
PROVIDERS: PCP Internal Medicine; Visit Provider Orthopaedic Surgery
DX: M70.41 Prepatellar bursitis, right knee (principal)
CPT/HCPCS: 99203